=== PATIENT | female | born 1975 | race Caucasian/White ===

== ENCOUNTER → 2020-04-25 | Outpatient (CLI) | payer MEDICARE, OTHER ==
--- NOTE | 2020-04-25 10:35 | P.GSHP ---
History of Present Illness H&P Date: 04/25/20 (breast pain) Chief Complaint: breast pain Indigo is a 44 year old white female seen for Dr. Muller with a complaint of a mass in the left lateral breast, and bilateral breast pain. The patient has been present for approximately 6-7 months. This present in both breasts. This is greatest in the midportion of the breast, the right side the pain is in the inferior aspect of the breast and on the left side the pain is greatest laterally. She did have a cholecystectomy in the pain started after the cholecystectomy and she had a left breast biopsy near the site where the pain is greatest. She has no complaints of any nipple discharge. The pain is sharp and goes through the nipple on each side. It occur several times a week. She is uncertain of anything that would make it come. She has had bilateral nipple piercing several months ago. She has had no history of any infection or, and the breast. She did have a core biopsy of the left breast palpable lesion which she states was benign, this was done 7-10 years ago. She states that it has increased in size since that time. The patient notes over the nodularity in the lateral aspect of the left breast, she does not feel any other lumps masses or nodules in her breast of which she is concerned. She had a recent bilateral mammogram Of importance is the fact that the patient has 3 kidneys, and following a cholecystectomy was noted have an accessory bile duct which caused biliary leakage. Caffeine: One cup of tea or coffee every 2 weeks Nicotine: Negative patient, mother a heavy smoker Theophylline: 2 candy bars/ per day Hormones: Patient does not take any at this time Family: father: throat cancer brother: throat cancer maternal aunt: breast cancer maternal aunt: uterine cancer maternal uncle: breast cancer paternal uncle: colo-rectal cancer paternal aunt: colo-rectal cancer Hormonal History: menarche: 11 , 1 , breast fed: no, age at first :21 full hysterectomy at 34, done for endometriosis BCP: 10 years hormones: 10 years. Estrogen and testosterone, she stopped this 3 years ago Surgical history: 1. Total abdominal hysterectomy for endometriosis 2. Cholecystectomy 3. Sepsis following cholecystectomy related to an accessory bile duct which caused bile to leak intra-abdominally/ mesh placed ; initial surgery was at [facility] the patient's subsequent surgery was at [facility] 4. Three repairs intra-abdominally to lyse scar tissue 5. Multiple laparoscopic evaluations for abdominal pain prior to hysterectomy 6. 2 C-sections Medical history: 1. Patient has 3 kidneys 2 on the right and one on the left/patient has history of kidney stones 2. fibromyalgia 3. Irritable bowel syndrome 4. Bipolar disorder 5. Personality disorder 6. Anxiety 7. Severe posttraumatic stress disorder Social history: Smoke: Negative Alcohol: Negative Drugs: Marijuana daily - Constitutional Constitutional: Reports sweats - EENT Eyes: bilateral blurred vision, denies pain Ears: bilateral: tinnitus (Mnire's disease), deny: decreased hearing Ears, nose, mouth and throat: Reports headache - Breasts Breasts: bilateral: as per HPI - Cardiovascular Cardiovascular: Denies chest pain, Denies shortness of breath - Respiratory Respiratory: Denies cough, Denies 7 - Gastrointestinal Gastrointestinal: Denies abdominal pain, Denies diarrhea, Denies nausea, Denies vomiting - Genitourinary (Female) Comment: kidney stones Genitourinary: Denies dysuria, Denies hematuria - Menstruation Menstruation: Reports post hysterectomy - Musculoskeletal Comment: Fibromyalgia - Integumentary Integumentary: Denies pruritus, Denies rash - Neurological Neurological: Reports numbness, Reports weakness - Psychiatric Psychiatric: Reports as per HPI, Reports anxiety, Reports depression - Endocrine Endocrine: Reports weight change - Hematologic/Lymphatic Comment: none - Allergic/Immunologic Allergic/Immunologic: Reports seasonal allergies 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"; History of Any Multi-Drug Resistant Organisms: C-DIFF Date of last positivie culture/infection: 2003 MDRO Source:: bowel Past Surgical History: Section, Cholecystectomy, Hysterectomy Additional Past Surgical History / Comment(s): hysterectomy, oophorectomy and salpingectomy; patient states she "coded and " from cholecystectomy complications during surgery; section x2; Past Anesthesia/Blood Transfusion Reactions: No Reported Reaction Past Psychological History: Anxiety, Bipolar, Depression, Panic Disorder, PTSD Additional Psychological History / Comment(s): personality disorder; Smoking Status: Never smoker Past Alcohol Use History: None Reported Past Drug Use History: Marijuana Additional Drug Use History / Comment(s): Marijuana multiple times a day - Past Family History Father Family Medical History: Cancer, Coronary Artery Disease (CAD) Additional Family Medical History / Comment(s): neck cancer; Mother Family Medical History: Hypertension Additional Family Medical History / Comment(s): mental illness Brother(s) Family Medical History: Cancer Additional Family Medical History / Comment(s): neck cancer Medications and Allergies Home Medications Medication Instructions Recorded Confirmed Type Baclofen [Lioresal] 50 mg PO HS 04/25/20 04/25/20 History Diazepam [Valium] 10 mg PO TID PRN 04/25/20 04/25/20 History Lisinopril [Zestril] 10 mg PO QAM 04/25/20 04/25/20 History OXcarbazepine [Trileptal] 900 mg PO BID 04/25/20 04/25/20 History PARoxetine [Paxil] 20 mg PO HS 04/25/20 04/25/20 History Pantoprazole Sodium [Protonix] 40 mg PO BID 04/25/20 04/25/20 History Pregabalin [Lyrica] 150 mg PO HS 04/25/20 04/25/20 History Allergies Allergy/AdvReac Type Severity Reaction Status Date / Time latex Allergy Anaphylaxis Unverified 04/25/20 09:27 Surgical - Exam Vital Signs Temp Pulse Resp BP Pulse Ox 98.4 F 82 18 131/90 97 04/25/20 09:33 04/25/20 09:33 04/25/20 09:33 04/25/20 09:33 04/25/20 09:33 BMI 32.6 - General obese - Eyes normal ocular movement - ENT no hearing loss, no congestion - Neck no masses, trachea midline - Respiratory normal respiratory effort, clear to auscultation - Cardiovascular Rhythm: regular Heart Sounds: normal: S1, S2 - Abdomen Abdomen: soft, non tender, no guarding, no rigid, no rebound - Integumentary tattoo - Neurologic no disoriented, no combative - Musculoskeletal normal gait, normal posture - Psychiatric oriented to time, oriented to person, oriented to place, speech is normal, memory intact Breast Exam: BRA 38E Inspection: ptosis grade 3 bilateral. right larger than left, bilateral nipple rings Palpation: right breast: Multi-positional exam no dominant masses or nodules of concern, nippling in place Right axilla: No adenopathy of concern Left breast: Smaller than right breast, nipple ring in place, on examination in the upper outer quadrant is approximately a 1 cm area of nodularity which appears to be consistent with fibrocystic breast disease/lipoma Left axilla: No adenopathy of concern Results Bilateral mammogram reviewed with radiology, area of nodularity noted in the left breast for which ultrasound is recommended Assessment and Plan Assessment: Impression: 1. Patient has 3 kidneys 2 on the right and one on the left/patient has history of kidney stones 2. fibromyalgia 3. Irritable bowel syndrome 4. Bipolar disorder 5. Personality disorder 6. Anxiety 7. Severe posttraumatic stress disorder 8. Mammographic abnormality left breast 9. Fibrocystic breast disease bilaterally 10. Family history of cancer 11. Mastodynia 12. Macromastia Plan: 1. Ultrasound left breast 2. Probable ultrasound-guided core biopsy left breast 3. Follow-up after this 4. Referral to plastic surgeon if patient wishes reduction mastopexy 5. Mastodynia may be related to hormonal changes/theophylline 6. Patient given Book regarding breast pain CC: DR. Muller encounter 50 minutes, > 50% of time in planning and counselling
[2020-04-25 10:45] VITALS: BP 131/90; PULSE 82; RESP 18; TEMP 98.4
== END | disposition home or self-care (01) ==
LOC: WWCWWP 09:14
PROVIDERS: ATTEND Surgery
DX: Z53.9 Procedure and treatment not carried out, unspecified reason (principal)

== ENCOUNTER → 2020-06-02 | Day surgery (SDC) | payer MEDICARE, OTHER ==
[2020-06-02 12:41] VITALS: PULSE 73
[2020-06-02 13:52] VITALS: BP 122/77; RESP 16; TEMP 98.1
--- NOTE | 2020-06-02 19:47 | USB ---
EXAMINATION TYPE: US biopsy breast VAD LT, MG post biopsy diagnostic mammo LT wo CAD DATE OF EXAM: 06/02/2020 CLINICAL HISTORY: 44-year-old female [id number] BREAST LUMP.MASS. TECHNIQUE: Ultrasound guided core biopsy of left breast. COMPARISON: 03/12/2020 FINDINGS: The procedure of ultrasound guided core biopsy was explained to the patient. Benefits, alternatives, and risks were discussed. An informed consent was then obtained. The patient was placed in supine positioning for imaging and for the procedure. The overlying skin was prepped and draped in usual sterile fashion. Lidocaine was used as anesthetic into the skin and subcutaneous tissue up to area of concern in the 1:00 left breast. The circumscribed oval solid mass with posterior through transmission measuring approximately 1.8 cm was targeted for biopsy. Under ultrasound guidance, a 13-gauge vacuum-assisted mammotome Elite biopsy gun device was used to obtain 4 core samples. Following this, a wing clip was left in lesion. The patient tolerated the procedure well without any immediate complication. The patient was kept in the radiology department for short stay after the procedure and then discharged home in stable condition. Postprocedure mammogram shows clip embedded within the mammographic mass. IMPRESSION: Successful, uncomplicated ultrasound guided core biopsy of 1:00 solid left breast mass, possible fibroadenoma. Full pathology results to follow. Pathology Results: Benign LEFT BREAST LESION AT 1:00 POSITION, NEEDLE CORE BIOPSIES: Fibroadenoma. Recommendation Follow up mammogram of the left breast in 6 months. GALI
== END ==
LOC: RADUSWWP 11:49
PROVIDERS: ATTEND Surgery
DX: D24.2 Benign neoplasm of left breast (principal); R92.8 Other abnormal and inconclusive findings on diagnostic imaging of breast
CPT/HCPCS: 88305; 77065; 19083; A4648; J2001

== ENCOUNTER → 2020-06-06 | Outpatient (CLI) | payer MEDICARE, OTHER ==
[2020-06-06 13:28] VITALS: BP 103/72; PULSE 84; RESP 18; TEMP 98.5
--- NOTE | 2020-06-06 13:35 | P.PN ---
Subjective Progress Note Date: 06/06/20 Principal diagnosis: Fibroadenoma left breast Indigo is a 44-year-old white female who is status post ultrasound-guided core biopsy of a lesion of concern in the left breast at the 1 o'clock position. This is 1.9 cm in nature. It corresponds with radiographic changes that were seen. The core biopsy was positive for fibroadenoma. This has been discussed with the patient. At this time she wishes to have a followed conservatively. She understands and will most likely not go away on its own. Objective - Vital Signs Vital signs: Vital Signs Temp 98.5 F 06/06/20 13:25 Pulse 84 06/06/20 13:25 Resp 18 06/06/20 13:25 BP 103/72 06/06/20 13:25 Pulse Ox 98 06/06/20 13:25 Intake & Output 06/05/20 06/06/20 06/06/20 18:59 06:59 18:59 Weight 84.822 kg - Exam BMI 32.1 - Constitutional General appearance: Present: average body habitus - EENT Eyes: Present: EOMI ENT: Present: hearing grossly normal - Neck Neck: Present: normal ROM - Respiratory Respiratory: bilateral: CTA - Cardiovascular Rhythm: regular Heart sounds: normal: S1, S2 - Integumentary Integumentary Comment(s): Biopsy Site left breast is clean and dry no evidence of infection Integumentary: Present: normal turgor - Musculoskeletal Musculoskeletal: Present: gait normal - Psychiatric Psychiatric: Present: A&O x's 3, appropriate affect, intact judgment & insight Assessment and Plan Assessment: Impression: 1. Fibrocystic breast changes 2. Radiographic abnormality left breast consistent with fibroadenoma 3. Probable change left breast noted on prior exam consistent with fibroadenoma on biopsy Plan: 1. Patient wishes to have surveillance will have repeat ultrasound in 6 months with physician exam at that time 2. If this increases in size prior that would recommend being seen sooner Cc: Dr. Muller encounter 15 minutes, > 50% of time in planning and counselling
== END | disposition home or self-care (01) ==
LOC: WWCWWP 12:55
PROVIDERS: ATTEND Surgery
DX: Z53.9 Procedure and treatment not carried out, unspecified reason (principal)

== ENCOUNTER → 2020-12-08 | Outpatient (CLI) | payer MEDICARE, OTHER ==
--- NOTE | 2020-12-08 12:28 | USB ---
Reason for exam: follow-up at short interval from prior study. History: Family history of breast cancer in maternal uncle at age 50, breast cancer in 2 maternal aunts, and breast cancer in paternal grandmother. Benign US biopsy breast VAD LT of the left breast, June 02, 2020. Physical Findings: Nurse did not find any significant physical abnormalities on exam. US Breast Limited LT Left limited breast ultrasound including focal area of concern, retroareolar and axilla demonstrates a 1.6 x 1.6 x 0.8cm oval, solid, hypoechoic, vascular lesion at 2 o'clock prior biopsy site and a 1.5 x 1.2 x 0.9cm lymph node at the axilla. These results were verbally communicated with the patient and result sheet given to the patient on 12/08/20. ASSESSMENT: Benign, BI-RAD 2 RECOMMENDATION: Follow-up diagnostic mammogram of the left breast.
--- NOTE | 2020-12-08 12:29 | MM ---
Reason for exam: follow-up at short interval from prior study. Last mammogram was performed 6 months ago. History: Family history of breast cancer in maternal uncle at age 50, breast cancer in 2 maternal aunts, and breast cancer in paternal grandmother. Benign US biopsy breast VAD LT of the left breast, June 02, 2020. MG 3D Diag Mammo W/Cad LT CC and MLO view(s) were taken of the left breast. Prior study comparison: June 02, 2020, left breast MG diagnostic mammo LT wo CAD. Previous mammotome biopsy in the left breast. There is chronic nodularity in the left breast. No significant new findings when compared with previous films. These results were verbally communicated with the patient and result sheet given to the patient on 12/08/20. ASSESSMENT: Benign, BI-RAD 2 RECOMMENDATION: Routine screening mammogram of both breasts in 6 months. Back on schedule for May 2021.
--- NOTE | 2020-12-08 16:04 | BD ---
EXAMINATION TYPE: Axial Bone Density DATE OF EXAM: 12/08/2020 COMPARISON: NONE CLINICAL HISTORY: Height: 62.7 IN Weight: 175 LBS FRAX RISK QUESTIONS: Secondary Osteoporosis: 3. Menopause before 45: TOTAL HYST AGE 35 Rheumatoid Arthritis: YES Current Tobacco Use: MARIJUANA RISK FACTORS HISTORY OF: History of Wrist Fracture: RT WRIST FX AGE 37 Active: MODERATE Postmenopausal woman: TOTAL HYST AGE 35 Take estrogen and/or progesterone medications: NOT NOW How long: TOOK FOR 8 YEARS Frequent falls: YES MINEAR MEDICATIONS: Additional Medications: VIT D, BACLOFEN, PAXIL, PROTONIX, TRILEPTAL, LISINOPRIL, LYRICA, EXAM MEASUREMENTS: Bone mineral densitometry was performed using the [employer] System. Bone mineral density as measured about the Lumbar spine is: ----- L1-L4(G/cm2): 0.775 T Score Values are as follows: ----- L2: -3.2 ----- L3: -2.7 ----- L4: -4.0 ----- L1-L4: -3.4 Bone mineral density BASELINE Bone mineral density about the R hip (g/cm2): 0.816 Bone mineral density about the L hip (g/cm2): 0.864 T Score values are as follows: -----R Neck: -1.6 -----L Neck: -1.2 -----R Total: -0.8 -----L Total: -0.6 Bone mineral density BASELINE IMPRESSION: Osteoporosis (T Score less than -2.5). There is increased fracture risk and therapy is usually indicated based on age. Re-Screen 1-2 years. NOTE: T-SCORE=SD OF THE YOUNG ADULT MEAN.
== END ==
LOC: RADUSWWP 09:15
PROVIDERS: ATTEND Surgery
DX: Z13.820 Encounter for screening for osteoporosis (principal); M81.0 Age-related osteoporosis without current pathological fracture; R92.8 Other abnormal and inconclusive findings on diagnostic imaging of breast
CPT/HCPCS: 77080; 77065; 76642; G0279; 77061

== ENCOUNTER → 2021-02-20 | Outpatient (CLI) | payer MEDICARE, OTHER ==
[2021-02-20 12:59] VITALS: BP 130/91; PULSE 74; RESP 14; TEMP 97.8
--- NOTE | 2021-02-20 14:13 | P.PN ---
Subjective Progress Note Date: 02/20/21 Principal diagnosis: mass left breast Indigo is a 45 year old white female seen for Dr. Muller seen initially in 2019 with a complaint of a mass in the left lateral breast, and bilateral breast pain. She underwent a left breast needle core biopsy at the 1 [place] [id number] which was positive for fibroadenoma. Her most recent radiographic studies were in November 2020. At that time she had a left breast mammogram which revealed chronic nodularity and a left breast ultrasound which revealed a 1.6 x 0.8 cm solid vascular lesion at 2:00 prior biopsy site and 1.5-1.2 cm lymph node in the axilla. Her last right breast mammogram was 03-12-20, which did not show any lesions of concern in the right breast. The patient over the last week noted a fullness in her left breast at the 6:00 periareolar region. She states it is tender to touch. And she was placed on antibiotics from her primary care doctor/Bactrim which she is not tolerating. She is having nausea and vomiting with this. She is complaining of chills but no fever. The spot in her breast has decreased in size. She did have a nipple ring on that side which she took months ago. She states that the nipple on that side intermittently becomes inverted. She has never had any breast surgery. She is not complaining of any nipple discharge or skin changes. She is not complaining the lumps or masses in the right breast. Of importance is the fact that the patient has 3 kidneys, and following a cholecystectomy was noted have an accessory bile duct which caused biliary leakage. Patient had Abraham COVID vaccine on 01-21-21. It was in her left arm. The breast lesion started 2 weeks later. Caffeine: One cup of tea or coffee every 2 weeks Nicotine: Negative patient, mother a heavy smoker not around her Theophylline: 2 candy bars/ per day; stopped this Hormones: Patient does not take any at this time Family: father: throat cancer brother: throat cancer maternal aunt: breast cancer maternal aunt: uterine cancer maternal uncle: breast cancer paternal uncle: colo-rectal cancer paternal aunt: colo-rectal cancer Hormonal History: menarche: 11 , 1 , breast fed: no, age at first :21 full hysterectomy at 34, done for endometriosis BCP: 10 years hormones: 10 years. Estrogen and testosterone, she stopped this 3 years ago Surgical history: 1. Total abdominal hysterectomy for endometriosis 2. Cholecystectomy 3. Sepsis following cholecystectomy related to an accessory bile duct which caused bile to leak intra-abdominally/ mesh placed ; initial surgery was at [facility] the patient's subsequent surgery was at [facility] 4. Three repairs intra-abdominally to lyse scar tissue 5. Multiple laparoscopic evaluations for abdominal pain prior to hysterectomy 6. 2 C-sections Medical history: 1. Patient has 3 kidneys 2 on the right and one on the left/patient has history of kidney stones 2. fibromyalgia 3. Irritable bowel syndrome 4. Bipolar disorder 5. Personality disorder 6. Anxiety 7. Severe posttraumatic stress disorder Social history: Smoke: Negative Alcohol: Negative Drugs: Marijuana daily - Constitutional Constitutional: Reports sweats - EENT Eyes: bilateral blurred vision, denies pain Ears: bilateral: tinnitus (Mnire's disease), deny: decreased hearing Ears, nose, mouth and throat: Reports headache - Breasts Breasts: bilateral: as per HPI - Cardiovascular Cardiovascular: Denies chest pain, Denies shortness of breath - Respiratory Respiratory: Denies cough - Gastrointestinal Gastrointestinal: Denies abdominal pain, Denies diarrhea, Denies nausea, Denies vomiting - Genitourinary (Female) Comment: kidney stones Genitourinary: Denies dysuria, Denies hematuria - Menstruation Menstruation: Reports post hysterectomy - Musculoskeletal Comment: Fibromyalgia - Integumentary Integumentary: Denies pruritus, Denies rash - Neurological Neurological: Reports numbness, Reports weakness - Psychiatric Psychiatric: Reports as per HPI, Reports anxiety, Reports depression - Endocrine Endocrine: Reports weight change - Hematologic/Lymphatic Comment: none - Allergic/Immunologic Allergic/Immunologic: Reports seasonal allergies Objective - Vital Signs Vital signs: Vital Signs Temp 97.8 F 02/20/21 12:50 Pulse 74 02/20/21 12:50 Resp 14 02/20/21 12:50 BP 130/91 02/20/21 12:50 Pulse Ox 98 02/20/21 12:50 Intake & Output 02/19/21 02/20/21 02/20/21 18:59 06:59 18:59 Weight 84.822 kg - Exam BMI 34.2 - Constitutional General appearance: Present: average body habitus - EENT Eyes: Present: EOMI ENT: Present: hearing grossly normal - Neck Neck: Present: normal ROM - Respiratory Respiratory: bilateral: CTA - Cardiovascular Rhythm: regular Heart sounds: normal: S1, S2 - Integumentary Integumentary: Present: normal turgor - Musculoskeletal Musculoskeletal: Present: gait normal - Psychiatric Psychiatric: Present: A&O x's 3, appropriate affect, intact judgment & insight - Additional findings Additional findings: breast exam: BRA: 36DDD inspection: Bilateral grade 3 ptosis Palpation: Right breast: Multi-positional exam fibrocystic changes no dominant masses or nodules of concern Right axilla: No adenopathy of concern Left breast: Multi-positional exam nodule periareolar area approximately 1-1/2 cm in size questionably consistent with an abscess/cyst left axilla: No adenopathy of concern Assessment and Plan Assessment: Impression: 1. Nodule left breast periareolar region cyst versus abscess attempted aspiration/question fibroadenoma 2. Recommend ultrasound area of concern left breast 3. Change antibiotics as patient is not tolerating Bactrim 4. Patient has 3 kidneys 2 on the right and one on the left/patient has history of kidney stones 5. fibromyalgia 6. Irritable bowel syndrome 7. Bipolar disorder 8. Personality disorder 9. Anxiety 10. Severe posttraumatic stress disorder 11. No fever 12. Question partially treated abscess with Bactrim Plan: 1. Attempted aspiration lesion left breast; no fluid obtained 2. Ultrasound left breast 3. Change antibiotics to Keflex as patient is not tolerating Bactrim 4. Follow up next week 5. Patient is going to follow up sooner any questions or concerns Cc: Dr. Muller Attempted aspiration lesion left breast the area was prepped using alcohol percent lidocaine was used to anesthetize the area of concern and 18-gauge needle on a 20 mL syringe was inserted into the area of nodularity no cystic fluid or of the purulence was aspirated. There is question that this may be a solid lesion same as the fibroadenoma that she had diagnosed before. We will get an ultrasound.
== END ==
LOC: WWCWWP 01-09 11:05
PROVIDERS: ATTEND Surgery
DX: N63.20 Unspecified lump in the left breast, unspecified quadrant (principal); F31.9 Bipolar disorder, unspecified; K58.9 Irritable bowel syndrome, unspecified; M79.7 Fibromyalgia; F60.9 Personality disorder, unspecified; F43.10 Post-traumatic stress disorder, unspecified; F41.9 Anxiety disorder, unspecified; Z87.442 Personal history of urinary calculi

== ENCOUNTER → 2021-02-27 | Outpatient (CLI) | payer MEDICARE, OTHER ==
[2021-02-27 08:58] VITALS: BP 140/101; PULSE 84; RESP 18; TEMP 97.7
--- NOTE | 2021-02-27 09:15 | USB ---
Reason for exam: clinical finding. History: Family history of breast cancer in maternal uncle at age 50, breast cancer in 2 maternal aunts, and breast cancer in paternal grandmother. Benign US biopsy breast VAD LT of the left breast, June 02, 2020. Indicated problem(s): pain in the left breast. Physical Findings: Nurse Summary: Patient complains of left beast pain x 1 month, 1cm lump left breast at 9 o'clock, bruising medial to nipple at lump (nurse mj). US Breast LT Left complete breast ultrasound includes all four quadrants, the retroareolar region and axilla. Finding demonstrates a 1.8 x 0.7 x 1.8cm mixed lesion at 2 o'clock and a 1.1 x 0.8 x 1.1cm at 8 o'clock, area of bruising. These results were verbally communicated with the patient and result sheet given to the patient on 02/27/21. ASSESSMENT: Probably benign, BI-RAD 3 RECOMMENDATION: Ultrasound of the left breast in 1 month. Manage patient on a clinical basis.
--- NOTE | 2021-02-27 09:16 | P.PN ---
Subjective Progress Note Date: 02/27/21 Principal diagnosis: Mass left breast periareolar area approximately 11:30 Indigo is a 45-year-old white female seen initially in 2019 with a complaint of a mass in the left lateral breast and bilateral breast pain. She underwent a left breast core biopsy on which was positive for fibroadenoma. Her most recent radiographic studies have been in November 2020. At that time she had a left breast mammogram which revealed chronic nodularity in the left breast ultrasound which revealed a 1.6 x 0.8 cm solid vascular lesion at 2:00 prior biopsy site and a 1.5 cm lymph node in the axilla. Her last right breast mammogram had been in February 2020 which did not show any lesions of concern in the right breast. The patient was seen on 5720 with a complaint of fullness in her left breast at the 6:00 periareolar region. She stated it was tender to touch. She had been placed on antibiotics for a primary care doctor Bactrim which she did not tolerate well when she was seen in the office there was noted to be a nodule in the left breast in the periareolar region and there was concern that this may represent an abscess. Antibiotic was changed to Keflex which she has been taking without resolution of the lesion. Additionally an attempt at aspiration was performed which was unsuccessful. She has had some ecchymosis of the site and continues to have tenderness at this site. An ultrasound was performed of this area today which reveals probable hematoma not opal to drain. The patient is doing well at this time, but continues to have discomfort at the site. She does not complain of any fever or chills. Objective - Vital Signs Vital signs: Vital Signs Temp 97.7 F 02/27/21 08:56 Pulse 84 02/27/21 08:56 Resp 18 02/27/21 08:56 BP 140/101 02/27/21 08:56 Pulse Ox 100 02/27/21 08:56 Intake & Output 02/26/21 02/27/21 02/27/21 18:59 06:59 18:59 Weight 83.915 kg - Exam BMI 32.8 - Constitutional General appearance: Present: average body habitus - EENT Eyes: Present: EOMI ENT: Present: hearing grossly normal - Neck Neck: Present: normal ROM - Respiratory Details: slight wheezes left lung base - Cardiovascular Heart sounds: normal: S1, S2 - Integumentary Integumentary Comment(s): Left breast periareolar region approximately 1 1/2 cm in size, mild ecchymosis at this site No evidence of any infection Assessment and Plan Assessment: Impression: 1. Nodule left breast periareolar region does not appear to be an abscess at this time attempted aspiration in unsuccessful ultrasound questionable hematoma from attempt at aspiration nothing to drain 2. Patient has 3 kidneys 2 on the right and one on the left, patient has history of kidney stones 3. Fibromyalgia 4. Irritable bowel syndrome 5. Bipolar disorder 6. Personality disorder 7. Anxiety 8. Posttraumatic stress disorder 9. No fever Plan: 1. Repeat ultrasound as per radiology in 1 month 2. Core biopsy of palpable lesion after ultrasound repeat 3. Follow-up in 2 weeks just to follow this area she has continued questions or concerns sooner we will be happy to see her sooner 4. Most likely resection of this area and the operating room after core biopsy Cc: Dr. Urias Encounter 25 minutes, time spent in examination, review of reports, counselling.
== END | disposition home or self-care (01) ==
LOC: RADUSWWP 07:52
PROVIDERS: ATTEND Surgery
DX: N63.25 Unspecified lump in the left breast, overlapping quadrants (principal); N63.42 Unspecified lump in left breast, subareolar; M79.7 Fibromyalgia; F31.9 Bipolar disorder, unspecified; N64.4 Mastodynia; Z80.3 Family history of malignant neoplasm of breast

== ENCOUNTER → 2021-03-19 | Outpatient (CLI) | payer MEDICARE, OTHER ==
[2021-03-19 11:46] VITALS: BP 131/88; PULSE 70; RESP 18; TEMP 98
--- NOTE | 2021-03-19 12:39 | P.PN ---
Subjective Progress Note Date: 03/19/21 Principal diagnosis: mass left breast Mass left breast periareolar area approximately 11:30 Indigo is a 45-year-old white female seen initially in 2019 with a complaint of a mass in the left lateral breast and bilateral breast pain. She underwent a left breast core biopsy on which was positive for fibroadenoma. Her most recent radiographic studies have been in November 2020. At that time she had a left breast mammogram which revealed chronic nodularity in the left breast ultrasound which revealed a 1.6 x 0.8 cm solid vascular lesion at 2:00 prior biopsy site and a 1.5 cm lymph node in the axilla. Her last right breast mammogram had been in February 2020 which did not show any lesions of concern in the right breast. The patient was seen on 5720 with a complaint of fullness in her left breast at the 6:00 periareolar region. She stated it was tender to touch. She had been placed on antibiotics for a primary care doctor Bactrim which she did not tolerate well when she was seen in the office there was noted to be a nodule in the left breast in the periareolar region and there was concern that this may represent an abscess. Antibiotic was changed to Keflex which she has been taking without resolution of the lesion. Additionally an attempt at aspiration was performed which was unsuccessful. She has had some ecchymosis of the site and continues to have tenderness at this site. An ultrasound was performed of on 02/1421 which revealed a 1.8 x 1.8 cm mixed lesion at 2:00. This was felt to be probably benign BIRADS 3 and ultrasound of the left breast in 1 month was recommended. The patient however had persistent discomfort and a repeat ultrasound of the left breast was performed on at [facility]. This revealed a 7 x 6 x 7 mm heterogeneous microlobulated lesion at the site of the lump in the subareolar region and enlarged 1.7 cm lymph node which had loss of the normal fatty hilum. The recommendation from [facility] from was for the patient to undergo ultrasound-guided core biopsy of the subareolar lesion and the abnormal left axillary lymph node. She had COVID vaccination on the left arm on February 11, 2021. Surgical history: 1. Total abdominal hysterectomy for endometriosis 2. Cholecystectomy 3. Sepsis following cholecystectomy related to an accessory bile duct 4. 3 exploratory laparotomies to lyse scar tissue 5. Multiple laparoscopic evaluations for abdominal pain prior to hysterectomy 6. 2 C-sections Medical history: 1. Patient has 3 kidneys 2 on the right and one on the left patient is history of kidney stones 2. Fibromyalgia 3. Irritable bowel syndrome 4. Polyp bipolar disorder 5. Personality disorder 6. Anxiety 7. Severe posttraumatic stress disorder Social history: Smoke: Negative Alcohol: Negative Drugs: Marijuana daily Objective - Vital Signs Vital signs: Vital Signs Temp 98.0 F 03/19/21 11:43 Pulse 70 03/19/21 11:43 Resp 18 03/19/21 11:43 BP 131/88 03/19/21 11:43 Pulse Ox 99 03/19/21 11:43 Intake & Output 03/18/21 03/19/21 03/19/21 18:59 06:59 18:59 Weight 86.183 kg - Exam BMI 33.7 - Constitutional General appearance: Present: average body habitus - EENT Eyes: Present: EOMI - Neck Neck: Present: normal ROM - Respiratory Respiratory: bilateral: CTA - Cardiovascular Heart sounds: normal: S1, S2 - Integumentary Integumentary: Present: normal turgor - Psychiatric Psychiatric: Present: A&O x's 3, appropriate affect, intact judgment & insight - Additional findings Additional findings: Brest exam: BRA: 36DDD inspection: grade 3 ptosis bilateral Palpation: Right breast: Multi-positional exam fibrocystic changes, no dominant masses or nodules of concern Right axilla: No adenopathy of concern Left breast: Multi-positional exam increased nodularity approximately 7 to 8 o'clock position. Areolar region otherwise no dominant masses or nodules of concern this area is tender to palpation Left axilla: No adenopathy of concern Assessment and Plan Assessment: Impression: 1. Patient's mammogram and ultrasounds were reviewed with Dr. Fabriz[facility] she states that she can do ultrasound core biopsy of the lesion in the left breast as well as that under her arm 2. Fibrocystic breast changes 3. Patient has 3 kidneys 2 on the right and one on the left patient is history of kidney stones 4. Fibromyalgia 5. Irritable bowel syndrome 6. Polyp bipolar disorder 7. Personality disorder 8. Anxiety 9. Severe posttraumatic stress disorder 10. 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 Patient is due for a right breast mammogram at this time 2. After review of patient's ultrasound with Dr. Dinh is recommended that a left breast ultrasound core biopsy be performed as well as potential left breast axillary biopsy be performed 3. Patient to follow up after results of biopsy Cc: Dr. Muller encounter 20 minutes
== END ==
LOC: WWCWWP 11:33
PROVIDERS: ATTEND Surgery
DX: N60.11 Diffuse cystic mastopathy of right breast (principal); D24.2 Benign neoplasm of left breast; F31.9 Bipolar disorder, unspecified; F43.10 Post-traumatic stress disorder, unspecified; M79.7 Fibromyalgia; Z87.442 Personal history of urinary calculi; F60.9 Personality disorder, unspecified; K58.9 Irritable bowel syndrome, unspecified; Z91.040 Latex allergy status

== ENCOUNTER → 2021-03-24 | Day surgery (SDC) | payer MEDICARE, OTHER ==
[2021-03-24 10:24] VITALS: RESP 16; TEMP 98.2
--- NOTE | 2021-03-24 11:54 | USB ---
EXAMINATION TYPE: US biopsy breast VAD LT DATE OF EXAM: 03/24/2021 CLINICAL HISTORY: R92.8 ABN MAMMO, N63 BREAST LUMP,MASS. TECHNIQUE: Ultrasound guided vaccuum assisted core biopsy of left breast. COMPARISON: NONE FINDINGS: The ultrasound guided core biopsy procedure was explained to the patient. The risks, benef its, alternatives were discussed. An informed consent was then obtained. Timeout was performed. The patient was placed in supine positioning for imaging and for the procedure. The overlying skin w as prepped with betadine and sterilely draped in usual sterile fashion. Lidocaine 1% was used as ane sthetic into the skin and deeper breast tissue up to area of concern in the breast. A small skin monae k was made with surgical scalpel. Under ultrasound guidance, a 12-gauge vacuum assisted biopsy device was used to obtain 5 core samples . A biopsy clip was left in lesion. Ribbon clip was placed. Good hemostasis was obtained with direct pressure. There was a suggestion small hematoma was forming after the final sample. Discharge instructions were discussed with the patient. The patient will fol low up with the referring physician for results. Postprocedure mammogram: The patient was transferred to mammography for physician ordered post proced ure mammogram for clip placement verification. The clip is in the expected region of the biopsy. Sma ll hematoma may be present. The patient tolerated the procedure well without any immediate complication. The patient was dischar ged to home in stable condition. IMPRESSION: 1. Successful ultrasound guided biopsy left breast. Recommendations: 1. Recommendations are pending pathology results.
[2021-03-24 12:12] VITALS: BP 138/86; PULSE 80
--- NOTE | 2021-03-24 12:18 | MM ---
Reason for exam: additional evaluation requested from abnormal screening. Last mammogram was performed 3 months ago. History: Family history of breast cancer in maternal uncle at age 50, breast cancer in 2 maternal aunts, and breast cancer in paternal grandmother. Benign US biopsy breast VAD LT of the left breast, June 02, 2020. MG Diagnostic Mammo LT Wo CAD CC and ML view(s) were taken of the left breast. Prior study comparison: December 08, 2020, left breast MG 3d diag mammo w/cad LT. June 02, 2020, left breast MG diagnostic mammo LT wo CAD. ASSESSMENT: Post procedure mammogram for marker placement RECOMMENDATION: Ultrasound of the left breast in 6 months. PENDING PATHOLOGY RESULTS.
== END ==
LOC: RADUSWWP 09:22
PROVIDERS: ATTEND Surgery
DX: N64.1 Fat necrosis of breast (principal); L90.5 Scar conditions and fibrosis of skin; R92.8 Other abnormal and inconclusive findings on diagnostic imaging of breast; N63.20 Unspecified lump in the left breast, unspecified quadrant; Z91.040 Latex allergy status
CPT/HCPCS: 88305; 77065; 19083; A4648; J2001

== ENCOUNTER 2021-05-22 16:44 | Emergency (ER) | payer MEDICARE, OTHER ==
[2021-05-22 17:11] VITALS: BP 142/99; PULSE 113; RESP 18; TEMP 98.4
--- NOTE | 2021-05-22 18:28 | ED ---
Allergic Reaction HPI - General Chief complaint: Allergic Reaction Stated complaint: Allergic reaction, itchy troat Time Seen by Provider: 05/22/21 18:12 Source: patient Mode of arrival: ambulatory Limitations: no limitations - History of Present Illness Initial Comments: 45-year-old female presents to emergency prompt with a chief complaint of a bee sting. Patient reports that incident occurred yesterday and it is located on the middle finger of right hand. Patient reports is also separate bee sting on the right leg. Patient reports typically oral steroids do not work well for her. States she took Benadryl but it is not working for her as well. Patient is requesting IM or IV steroids. She denies and difficulty breathing swallowing or drooling. - Related Data Home Medications Medication Instructions Recorded Confirmed Baclofen [Lioresal] 50 mg PO HS 04/25/20 03/24/21 Diazepam [Valium] 10 mg PO TID PRN 04/25/20 03/24/21 Lisinopril [Zestril] 10 mg PO QAM 04/25/20 03/24/21 OXcarbazepine [Trileptal] 900 mg PO BID 04/25/20 03/24/21 PARoxetine [Paxil] 20 mg PO HS 04/25/20 03/24/21 Pantoprazole Sodium [Protonix] 40 mg PO BID 04/25/20 03/24/21 Pregabalin [Lyrica] 150 mg PO HS 04/25/20 03/24/21 Cetirizine HCl 10 mg PO DAILY 03/19/21 03/24/21 Cholecalciferol [Vitamin D3 (25 25 mcg PO DAILY 03/19/21 03/24/21 Mcg = 1000 Iu)] Meclizine [Antivert] 25 mg PO TID PRN 03/19/21 03/24/21 ondansetron HCL [Zofran] 8 mg PO Q8HR PRN 03/19/21 03/24/21 Previous Rx's Medication Instructions Recorded Cephalexin [Keflex] 500 mg PO BID #14 cap 05/22/21 Fluconazole [Diflucan] 150 mg PO ONCE #2 tab 05/22/21 Allergies Allergy/AdvReac Type Severity Reaction Status Date / Time latex Allergy Anaphylaxis Verified 05/22/21 17:11 Review of Systems ROS Statement: Those systems with pertinent positive or pertinent negative responses have been documented in the HPI. ROS Other: All systems not noted in ROS Statement are negative. 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"; History of Any Multi-Drug Resistant Organisms: C-DIFF Date of last positivie culture/infection: 2003 MDRO Source:: bowel Past Surgical History: Section, Cholecystectomy, Hysterectomy Additional Past Surgical History / Comment(s): hysterectomy, oophorectomy and salpingectomy; patient states she "coded and " from cholecystectomy complications during surgery; section x2; Past Anesthesia/Blood Transfusion Reactions: No Reported Reaction Past Psychological History: Anxiety, Bipolar, Depression, Panic Disorder, PTSD Smoking Status: Never smoker, Second hand smoke exposure Past Alcohol Use History: None Reported Past Drug Use History: Marijuana - Past Family History Father Family Medical History: Cancer, Coronary Artery Disease (CAD) Additional Family Medical History / Comment(s): neck cancer; Mother Family Medical History: Hypertension Additional Family Medical History / Comment(s): mental illness Brother(s) Family Medical History: Cancer Additional Family Medical History / Comment(s): neck cancer General Exam Limitations: no limitations General appearance: alert, in no apparent distress Head exam: Present: atraumatic, normocephalic, normal inspection Eye exam: Present: normal appearance, PERRL, EOMI Pupils: Present: normal accommodation ENT exam: Present: normal exam, normal oropharynx, mucous membranes moist Neck exam: Present: normal inspection, full ROM. Absent: tenderness, lymphadenopathy Respiratory exam: Present: normal lung sounds bilaterally. Absent: respiratory distress, wheezes, rales Cardiovascular Exam: Present: regular rate, normal rhythm, normal heart sounds. Absent: systolic murmur Extremities exam: Present: full ROM, tenderness (Mild tenderness of the bee sting site), normal capillary refill. Absent: normal inspection (Bee sting on the middle finger), pedal edema Back exam: Present: normal inspection, full ROM. Absent: tenderness Neurological exam: Present: alert, oriented X3 Psychiatric exam: Present: normal affect, normal mood Skin exam: Present: warm, dry, intact, normal color Course Vital Signs 05/22/21 17:07 Temperature 98.4 F Pulse Rate 113 H Respiratory 18 Rate Blood Pressure 142/99 O2 Sat by Pulse 98 Oximetry Medical Decision Making - Medical Decision Making Patient was given 1 dose of 10 mg Decadron here. Also given IV Benadryl. I will discharge the patient with Keflex to rule out any infection. Strict return parameters were thoroughly discussed patient is an attending agreeable. Last follow up PCP. Case discussed with physician. Disposition Clinical Impression: Allergic reaction to insect sting Disposition: HOME SELF-CARE Condition: Stable Instructions (If sedation given, give patient instructions): Allergies (ED) Additional Instructions: Take prescribed medication as directed. Return to emergency department if symptoms worsen. Prescriptions: Fluconazole [Diflucan] 150 mg PO ONCE #2 tab Cephalexin [Keflex] 500 mg PO BID #14 cap Is patient prescribed a controlled substance at d/c from ED?: No Referrals: Wilberto Muller MD [Primary Care Provider] - 1-2 days Time of Disposition: 18:27
[2021-05-22] MEDS: DEXAMETHASONE SOD PHOSPHATE 10 MG/ML 1 ML VIAL IV STA (18:31)
[2021-05-22] MEDS: diphenhydrAMINE 50 MG/ML 1 ML VIAL IVP STA (18:39)
== END 2021-05-22 18:51 | disposition home or self-care (01) ==
LOC: EC 16:44
DX: T63.481A Toxic effect of venom of other arthropod, accidental (unintentional), initial encounter (principal); F31.9 Bipolar disorder, unspecified; F41.9 Anxiety disorder, unspecified; F12.90 Cannabis use, unspecified, uncomplicated; Z86.73 Personal history of transient ischemic attack (TIA), and cerebral infarction without residual deficits
CPT/HCPCS: 99282; 96374; 96375; J1200; J1100

== ENCOUNTER → 2021-05-29 | Outpatient (CLI) | payer MEDICARE, OTHER ==
[2021-05-29 13:47] VITALS: BP 116/81; PULSE 89; RESP 16; TEMP 98.2
--- NOTE | 2021-05-29 14:12 | P.PN ---
Subjective Progress Note Date: 05/29/21 Principal diagnosis: bilateral milky discharge mass left breast Mass left breast periareolar area approximately 11:30 Indigo is a 45-year-old white female seen initially in 2019 with a complaint of a mass in the left lateral breast and bilateral breast pain. She underwent a left breast core biopsy on which was positive for fibroadenoma. Her most recent radiographic studies have been in November 2020. At that time she had a left breast mammogram which revealed chronic nodularity in the left breast ultrasound which revealed a 1.6 x 0.8 cm solid vascular lesion at 2:00 prior biopsy site and a 1.5 cm lymph node in the axilla. Her last right breast mammogram had been in February 2020 which did not show any lesions of concern in the right breast. The patient was seen on 5720 with a complaint of fullness in her left breast at the 6:00 periareolar region. She stated it was tender to touch. She had been placed on antibiotics for a primary care doctor Bactrim which she did not tolerate well when she was seen in the office there was noted to be a nodule in the left breast in the periareolar region and there was concern that this may represent an abscess. Antibiotic was changed to Keflex which she has been taking without resolution of the lesion. Additionally an attempt at aspiration was performed which was unsuccessful. She has had some ecchymosis of the site and continues to have tenderness at this site. An ultrasound was performed of on 02/1421 which revealed a 1.8 x 1.8 cm mixed lesion at 2:00. This was felt to be probably benign BIRADS 3 and ultrasound of the left breast in 1 month was recommended. The patient however had persistent discomfort and a repeat ultrasound of the left breast was performed on at [facility]. This revealed a 7 x 6 x 7 mm heterogeneous microlobulated lesion at the site of the lump in the subareolar region and enlarged 1.7 cm lymph node which had loss of the normal fatty hilum. The recommendation from [facility] from was for the patient to undergo ultrasound-guided core biopsy of the subareolar lesion and the abnormal left axillary lymph node. She had COVID vaccination on the left arm on February 11, 2021. Indigo is a 45 year old white female with a complaint of bilateral white milky discharge. This has been going on for two weeks. Prior to this she had bloody discharge from the left side starting in mid March. This started approximately 4 days after a left breast ultrasound core biopsy. The ultrasound core biopsy was done on 03-24-21. The ultrasound core biopsy was positive for fat necrosis/scar with inflammation and granulation tissue. It was negative for malignancy. The patient had before noted a lump behind the left nipple areolar complex has resolved. The patient has bilateral nodularity with no prominent discrete single masses or nodules. At this time the patient is most concerned about his the bilateral milky discharge. She has had a head CT May 15 of her brain to rule out a prolactin tumor and is scheduled for an MRI of the brain later today again to rule out a prolactinoma. She states she had blood work done which she does not know the results of at this time. Her last right breast mammogram was in February 2020, her last left breast mammogram was in November 2020. Caffeine: 2 cups coffee/week nicotine: none chocolate: 1 time/week hormones: did use HRT for 5 years stopped 10 years ago BCP: stopped 1995; used them for 7 years Hormonal History: menarche: 12 M1, breast fed: no, age at first : 22 menopause: hysterectomy at 32 for polycystic ovaries; both ovaries removed Surgical history: 1. Total abdominal hysterectomy for endometriosis 2. Cholecystectomy 3. Sepsis following cholecystectomy related to an accessory bile duct 4. 3 exploratory laparotomies to lyse scar tissue 5. Multiple laparoscopic evaluations for abdominal pain prior to hysterectomy 6. 2 C-sections Medical history: 1. Patient has 3 kidneys 2 on the right and one on the left patient is history of kidney stones 2. Fibromyalgia 3. Irritable bowel syndrome 4. bipolar disorder 5. Personality disorder 6. Anxiety 7. Severe posttraumatic stress disorder 8. GERD 9. HTN Social history: Smoke: Negative Alcohol: Negative Drugs: Marijuana daily Review of systems: HEENT: Sore and nose, sore right upper jaw Lungs: Negative Heart: Negative GI: GERD, IBS : as above kidney stones Musculoskeletal: Osteoporosis, severe arthritis Psychiatric: Bipolar, personality disorder, anxiety Bleeding abnormalities: anemic occasionally allergies: latex, seasonal allergies Objective - Vital Signs Vital signs: Intake & Output 05/28/21 05/29/21 05/29/21 18:59 06:59 18:59 Weight 81.647 kg - Exam BMI 31.9 - Constitutional General appearance: Present: cooperative - EENT Eyes: Present: EOMI ENT: Present: hearing grossly normal - Neck Neck: Present: normal ROM - Respiratory Respiratory: bilateral: CTA - Cardiovascular Rhythm: regular Heart sounds: normal: S1, S2 - Integumentary Integumentary: Present: normal turgor - Musculoskeletal Musculoskeletal: Present: gait normal - Psychiatric Psychiatric: Present: A&O x's 3 - Additional findings Additional findings: Breast exam: BRA: 36DD inspection: bilateral grade 3 ptosis palpation: right breast : Multi-positional exam no dominant masses or nodules of concern fibrocystic changes Right axilla: No adenopathy of concern Left breast: Multi-positional exam the lesion which was posterior to the left nipple areolar complex in the past is completely resolved at this time patient has no dominant mass or patches of concern in this breast Left axilla: No adenopathy of concern Patient was able to elicit a small amount of nipple discharge on the right with squeezing, I was not able to elicit any and this looks serous in nature. On the left breast no nipple discharge was noted myself or the patient Assessment and Plan Assessment: Impression: 1. Intermittent no heat bilateral nipple discharge as per patient none demonstrated today 2. Daily marijuana use which may be causing the milky discharge 3. Patient's fibrocystic changes which were noted on her last visit have completely resolved Plan: 1. bilateral mammogram 2. I have counseled the patient regarding marijuana use in the possible cause of galactorrhea 3. patient is having a breast MRI performed tonight; she had a head CT on 05/15/2021 at [facility] 4. prolatin level 5. follow up after mammogram CC: Dr. Muller
== END ==
LOC: WWCWWP 13:13
PROVIDERS: ATTEND Surgery
DX: N64.52 Nipple discharge (principal); F12.90 Cannabis use, unspecified, uncomplicated; F31.9 Bipolar disorder, unspecified; I10 Essential (primary) hypertension; F41.9 Anxiety disorder, unspecified; F60.9 Personality disorder, unspecified; F43.10 Post-traumatic stress disorder, unspecified

== ENCOUNTER → 2021-06-01 | Outpatient (CLI) | payer MEDICARE, OTHER ==
--- NOTE | 2021-06-01 09:08 | MM ---
Reason for exam: clinical finding. Last mammogram was performed 2 months ago. History: Patient is postmenopausal. Family history of breast cancer in maternal uncle at age 50, breast cancer in 2 maternal aunts, and breast cancer in paternal grandmother. Benign US biopsy breast VAD LT of the left breast, March 24, 2021. Benign US biopsy breast VAD LT of the left breast, June 02, 2020. Took hormonal contraceptives for 7 years. Physical Findings: Nurse did not find any significant physical abnormalities on exam. MG 3D Diag Mammo W/Cad TRACIE Bilateral CC and MLO view(s) were taken. Prior study comparison: March 24, 2021, left breast MG diagnostic mammo LT wo CAD. February 27, 2021, left breast US breast LT. December 08, 2020, left breast MG 3d diag mammo w/cad LT. June 02, 2020, left breast MG diagnostic mammo LT wo CAD. May 12, 2020, left breast US breast limited LT. There are scattered fibroglandular densities. Previous mammotome biopsy in the left breast x 2. There is chronic nodularity in the left breast. No significant new findings when compared with previous films. These results were verbally communicated with the patient and result sheet given to the patient on 06/01/21. ASSESSMENT: Incomplete: need additional imaging evaluation, BI-RAD 0 RECOMMENDATION: Ultrasound of both breasts. (right periareolar for milky discharge, left for discharge, benign, milky now but initially bloody)
--- NOTE | 2021-06-01 09:10 | USB ---
Reason for exam: additional evaluation requested from abnormal screening. History: Patient is postmenopausal. Family history of breast cancer in maternal uncle at age 50, breast cancer in 2 maternal aunts, and breast cancer in paternal grandmother. Benign US biopsy breast VAD LT of the left breast, March 24, 2021. Benign US biopsy breast VAD LT of the left breast, June 02, 2020. Took hormonal contraceptives for 7 years. US Breast Limited BILAT Right limited breast ultrasound including focal area of concern, retroareolar and axilla demonstrates no cystic or solid lesion seen. Left complete breast ultrasound includes all four quadrants, the retroareolar region and axilla. Finding demonstrates a 1.7 x 1.0 x 1.4cm oval, solid lesion at 2 o'clock prior biopsy. Entire left breast, right retroareolar/periareolar scanned. These results were verbally communicated with the patient and result sheet given to the patient on 06/01/21. ASSESSMENT: Benign, BI-RAD 2 RECOMMENDATION: Routine screening mammogram of both breasts in 10 months. Manage on a clinical basis with regard to benign milky nipple discharge bilaterally.
== END | disposition home or self-care (01) ==
LOC: RADMAMWWP 06:59
PROVIDERS: ATTEND Surgery
DX: N64.89 Other specified disorders of breast (principal); Z78.0 Asymptomatic menopausal state; Z80.3 Family history of malignant neoplasm of breast
CPT/HCPCS: 77066; 76642; G0279; 77062

== ENCOUNTER 2021-07-07 14:02 | Emergency (ER) | payer MEDICARE, OTHER ==
--- NOTE | 2021-07-07 15:54 | ED ---
General Adult HPI - General Chief complaint: Shortness of Breath Stated complaint: ANNALISA/Back Pain Time Seen by Provider: 07/07/21 15:31 Source: patient Mode of arrival: wheelchair Limitations: no limitations - History of Present Illness Initial comments: Dictation was produced using [employer] dictation software. please excuse any grammatical, word or spelling errors. Chief Complaint: 45-year-old female presents to the emergency department for chest pain History of Present Illness: Is a 45-year-old female she presents with substernal chest pain that she describes as sharp and radiates to the back. She states that the symptoms are associated with paresthesias to the entire left upper extremity. Patient states she has strong family history of heart attacks and sudden . She is worried she is having a heart attack. Patient states she doesn't have any pain with inspiration but she does have exacerbation with expiration. Patient states that the pain is anywhere between a 5 and an 8 on a pain scale of 10. States that she's having active symptoms at this time. She reports onset of symptoms this morning was very severe. No associated diaphoresis. Mild nausea. The ROS documented in this emergency department record has been reviewed and confirmed by me. Those systems with pertinent positive or negative responses have been documented in the HPI. All other systems are other negative and/or noncontributory. PHYSICAL EXAM: General Impression: Alert and oriented x3, not in acute distress HEENT: Normocephalic atraumatic, extra-ocular movements intact, pupils equal and reactive to light bilaterally, mucous membranes moist. Cardiovascular: Heart regular rate and rhythm Chest: Able to complete full sentences, no retractions, no tachypnea Abdomen: abdomen soft, non-tender, non-distended, no organomegaly Musculoskeletal: Pulses present and equal in all extremities, no peripheral edema Motor: no focal deficits noted Neurological: CN II-XII grossly intact, no focal motor or sensory deficits noted Skin: Intact with no visualized rashes Psych: Normal affect and mood ED course: 45-year-old well-appearing female presents to the emergency department for atypical chest pain. Symptoms are worrisome for acute aortic dissection. Vital signs upon arrival are within acceptable limits. EKG interpretation: Ventricular rate 66, normal sinus rhythm, MS interval 162, QRS 80, QTc 436. No MS prolongation, no QTC prolongation, no ST or T-wave changes noted. Overall, this EKG is unremarkable Laboratory evaluation obtained. CBC, coag panel, metabolic panel is unremarkable. Troponin is negative. CT angios the chest shows no PE or aortic dissection. Patient reevaluated at bedside at 5:22 PM found to be stable medical condition. Patient be discharged advised follow-up with primary care doctor. - Related Data Home Medications Medication Instructions Recorded Confirmed Baclofen [Lioresal] 50 mg PO HS 04/25/20 05/29/21 Diazepam [Valium] 10 mg PO TID PRN 04/25/20 05/29/21 Lisinopril [Zestril] 10 mg PO QAM 04/25/20 05/29/21 OXcarbazepine [Trileptal] 900 mg PO BID 04/25/20 05/29/21 PARoxetine [Paxil] 20 mg PO HS 04/25/20 05/29/21 Pantoprazole Sodium [Protonix] 40 mg PO BID 04/25/20 05/29/21 Pregabalin [Lyrica] 150 mg PO HS 04/25/20 05/29/21 Cetirizine HCl 10 mg PO DAILY 03/19/21 05/29/21 Cholecalciferol [Vitamin D3 (25 25 mcg PO DAILY 03/19/21 05/29/21 Mcg = 1000 Iu)] Meclizine [Antivert] 25 mg PO TID PRN 03/19/21 05/29/21 ondansetron HCL [Zofran] 8 mg PO Q8HR PRN 03/19/21 05/29/21 Previous Rx's Medication Instructions Recorded Cephalexin [Keflex] 500 mg PO BID #14 cap 05/22/21 Fluconazole [Diflucan] 150 mg PO ONCE #2 tab 05/22/21 Allergies Allergy/AdvReac Type Severity Reaction Status Date / Time latex Allergy Anaphylaxis Verified 07/07/21 15:08 Review of Systems ROS Statement: Those systems with pertinent positive or pertinent negative responses have been documented in the HPI. ROS Other: All systems not noted in ROS Statement are negative. 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"; History of Any Multi-Drug Resistant Organisms: C-DIFF Date of last positivie culture/infection: 2003 MDRO Source:: bowel Past Surgical History: Section, Cholecystectomy, Hysterectomy Additional Past Surgical History / Comment(s): hysterectomy, oophorectomy and salpingectomy; patient states she "coded and " from cholecystectomy complications during surgery; section x2; Past Anesthesia/Blood Transfusion Reactions: No Reported Reaction Past Psychological History: Anxiety, Bipolar, Depression, Panic Disorder, PTSD Smoking Status: Never smoker, Second hand smoke exposure Past Alcohol Use History: None Reported Past Drug Use History: Marijuana - Past Family History Father Family Medical History: Cancer, Coronary Artery Disease (CAD) Additional Family Medical History / Comment(s): neck cancer; Mother Family Medical History: Hypertension Additional Family Medical History / Comment(s): mental illness Brother(s) Family Medical History: Cancer Additional Family Medical History / Comment(s): neck cancer General Exam Limitations: no limitations Course Vital Signs 07/07/21 07/07/21 15:03 15:47 Temperature 97.9 F Pulse Rate 71 78 Respiratory 18 18 Rate Blood Pressure 141/104 139/88 O2 Sat by Pulse 100 99 Oximetry Medical Decision Making - Lab Data Result diagrams: 07/07/21 16:06 07/07/21 16:06 Lab Results 07/07/21 07/07/21 07/07/21 Range/Units 16:06 16:06 16:06 WBC 5.7 (3.8-10.6) k/uL RBC 3.82 (3.80-5.40) m/uL Hgb 12.8 (11.4-16.0) gm/dL Hct 36.0 (34.0-46.0) % MCV 94.2 (80.0-100.0) fL MCH 33.6 (25.0-35.0) pg MCHC 35.6 (31.0-37.0) g/dL RDW 11.6 (11.5-15.5) % Plt Count 294 (150-450) k/uL MPV 7.3 Neutrophils % 58 % Lymphocytes % 24 % Monocytes % 7 % Eosinophils % 7 % Basophils % 1 % Neutrophils # 3.3 (1.3-7.7) k/uL Lymphocytes # 1.4 (1.0-4.8) k/uL Monocytes # 0.4 (0-1.0) k/uL Eosinophils # 0.4 (0-0.7) k/uL Basophils # 0.1 (0-0.2) k/uL PT 10.3 (9.0-12.0) sec INR 1.0 (<1.2) APTT 27.2 (22.0-30.0) sec Sodium 136 L (137-145) mmol/L Potassium 3.9 (3.5-5.1) mmol/L Chloride 103 (98-107) mmol/L Carbon Dioxide 25 (22-30) mmol/L Anion Gap 8 mmol/L BUN 11 (7-17) mg/dL Creatinine 0.52 (0.52-1.04) mg/dL Est GFR (CKD-EPI)AfAm >90 (>60 ml/min/1.73 sqM) Est GFR (CKD-EPI)NonAf >90 (>60 ml/min/1.73 sqM) Glucose 85 (74-99) mg/dL Calcium 9.1 (8.4-10.2) mg/dL Troponin I (0.000-0.034) ng/mL 07/07/21 Range/Units 16:06 WBC (3.8-10.6) k/uL RBC (3.80-5.40) m/uL Hgb (11.4-16.0) gm/dL Hct (34.0-46.0) % MCV (80.0-100.0) fL MCH (25.0-35.0) pg MCHC (31.0-37.0) g/dL RDW (11.5-15.5) % Plt Count (150-450) k/uL MPV Neutrophils % % Lymphocytes % % Monocytes % % Eosinophils % % Basophils % % Neutrophils # (1.3-7.7) k/uL Lymphocytes # (1.0-4.8) k/uL Monocytes # (0-1.0) k/uL Eosinophils # (0-0.7) k/uL Basophils # (0-0.2) k/uL PT (9.0-12.0) sec INR (<1.2) APTT (22.0-30.0) sec Sodium (137-145) mmol/L Potassium (3.5-5.1) mmol/L Chloride (98-107) mmol/L Carbon Dioxide (22-30) mmol/L Anion Gap mmol/L BUN (7-17) mg/dL Creatinine (0.52-1.04) mg/dL Est GFR (CKD-EPI)AfAm (>60 ml/min/1.73 sqM) Est GFR (CKD-EPI)NonAf (>60 ml/min/1.73 sqM) Glucose (74-99) mg/dL Calcium (8.4-10.2) mg/dL Troponin I <0.012 (0.000-0.034) ng/mL Disposition Clinical Impression: Chest pain Disposition: HOME SELF-CARE Condition: Good Instructions (If sedation given, give patient instructions): Chest Pain (ED) Is patient prescribed a controlled substance at d/c from ED?: No Referrals: Wilberto Muller MD [Primary Care Provider] - 1-2 days
[2021-07-07 16:22] LABS: Basophils # (A) 0.1 k/uL (0-0.2); Basophils % (A) 1 %; Eosinophils # (A) 0.4 k/uL (0-0.7); Eosinophils % (A) 7 %; HGB 12.8 gm/dL (11.4-16.0); Lymphocytes # (A) 1.4 k/uL (1.0-4.8); Lymphocytes % (A) 24 %; MCH 33.6 pg (25.0-35.0); MCHC 35.6 g/dL (31.0-37.0); MCV 94.2 fL (80.0-100.0); Mean Platelet Volume 7.3; Monocytes # (A) 0.4 k/uL (0-1.0); Monocytes % (A) 7 %; Neutrophils # (A) 3.3 k/uL (1.3-7.7); Neutrophils % (A) 58 %; Platelet Count 294 k/uL (150-450); RBC 3.82 m/uL (3.80-5.40); RDW 11.6 % (11.5-15.5); WBC 5.7 k/uL (3.8-10.6)
[2021-07-07 16:27] VITALS: PULSE 78
[2021-07-07 16:30] LABS: Partial Thromboplastin Time 27.2 sec (22.0-30.0); Prothrombin Time 10.3 sec (9.0-12.0)
--- NOTE | 2021-07-07 16:32 | CT ---
EXAMINATION TYPE: CT angio chest DATE OF EXAM: 07/07/2021 4:25 PM COMPARISON: None. HISTORY: chest pain CT DLP: 320.2 mGycm Automated exposure control for dose reduction was used. CONTRAST: CTA scan of the thorax is performed with IV Contrast, patient injected with 100 mL of Isovue 370, pul monary embolism protocol. MIP images are created and reviewed. FINDINGS: LUNGS: The lungs are grossly clear, there is no concerning parenchymal mass or nodule identified. T here is no pleural effusion or pneumothorax seen. The tracheobronchial tree is patent. MEDIASTINUM: There is satisfactory enhancement of the pulmonary artery and its branches, there is no CT evidence for pulmonary embolism. There are no greater than 1 cm hilar or mediastinal lymph nodes. No cardiomegaly or pericardial effusion is seen. OTHER: Cholecystectomy clips are seen. Slight scoliotic curvature. IMPRESSION: NO ACUTE PULMONARY EMBOLISM. NO SUSPICIOUS ACUTE PULMONARY PROCESS.
[2021-07-07 16:38] LABS: African American GFR (CKD) >90 (>60 ml/min/1.73 sqM); Anion Gap 8 mmol/L; Blood Urea Nitrogen 11 mg/dL (7-17); Calcium 9.1 mg/dL (8.4-10.2); Carbon Dioxide 25 mmol/L (22-30); Chloride 103 mmol/L (98-107); Glucose 85 mg/dL (74-99); Non-African American GFR(CKD) >90 (>60 ml/min/1.73 sqM); Potassium 3.9 mmol/L (3.5-5.1); Sodium 136 mmol/L (137-145)
[2021-07-07 17:44] VITALS: BP 128/79; RESP 16; TEMP 98.2
== END 2021-07-07 17:43 | disposition home or self-care (01) ==
LOC: EC 14:02
DX: R07.89 Other chest pain (principal); F41.9 Anxiety disorder, unspecified; F31.9 Bipolar disorder, unspecified; F43.12 Post-traumatic stress disorder, chronic; F12.90 Cannabis use, unspecified, uncomplicated; Z91.040 Latex allergy status; Z90.710 Acquired absence of both cervix and uterus; Z90.49 Acquired absence of other specified parts of digestive tract; Z86.73 Personal history of transient ischemic attack (TIA), and cerebral infarction without residual deficits
CPT/HCPCS: 99285; 36415; 93005; 80048; 84484; 85025; 85610; 85730; 71275; Q9967

== ENCOUNTER → 2021-09-24 | Outpatient (CLI) | payer MEDICARE, OTHER ==
[2021-09-24 12:12] VITALS: BP 121/86; PULSE 69; RESP 16; TEMP 98.3
--- NOTE | 2021-09-24 13:05 | P.PN ---
Subjective Progress Note Date: 09/24/21 Principal diagnosis: occasional left nipple discharge/white Indigo is a 45 year old white female with a complaint of bilateral white milky discharge. This has been intermittent for 7 months. Prior to this she had bloody discharge from the left side starting in mid March. This started approximately 4 days after a left breast ultrasound core biopsy. The ultrasound core biopsy was done on 03-24-21. The ultrasound core biopsy was positive for fat necrosis/scar with inflammation and granulation tissue. It was negative for malignancy. The patient had before noted a lump behind the left nipple areolar complex has resolved. The patient has bilateral nodularity with no prominent discrete single masses or nodules. At this time the discharge has decreased. She had a prolactin level done on which was elevated at 39 with upper limit of normal being 23.3. She underwent an MRI of the brain performed on the same date which was a normal MR scan of the brain no evidence of pituitary tumor. On when she had bilateral mammograms after which ultrasound of both breasts was recommended ultrasound revealed no specific lesions of concern in the right breast, and on the left breast a 1.7 cm solid lesion at 2:00 which had been biopsied in the past this was felt to be benign BIRADS 2 and repeat P8 bilateral screening mammogram of both breasts in 10 months was recommended. The patient states she has had recently some crushing type pain posterior to the breast and the right chest wall. She has not had any trauma or infection of the breast. It occurs any time she supports her breast. It is about a 3 on a scale of 1-10. It increases as the day proceeds. Caffeine: 2 cups coffee/week nicotine: none chocolate: 1 time/week hormones: did use HRT for 5 years stopped 10 years ago BCP: stopped 1995; used them for 7 years Hormonal History: menarche: 12 M1, breast fed: no, age at first : 22 menopause: hysterectomy at 32 for polycystic ovaries; both ovaries removed Surgical history: 1. Total abdominal hysterectomy for endometriosis 2. Cholecystectomy 3. Sepsis following cholecystectomy related to an accessory bile duct 4. 3 exploratory laparotomies to lyse scar tissue 5. Multiple laparoscopic evaluations for abdominal pain prior to hysterectomy 6. 2 C-sections Medical history: 1. Patient has 3 kidneys 2 on the right and one on the left patient is history of kidney stones 2. Fibromyalgia 3. Irritable bowel syndrome 4. bipolar disorder 5. Personality disorder 6. Anxiety 7. Severe posttraumatic stress disorder 8. GERD 9. HTN Social history: Smoke: Negative Alcohol: Negative Drugs: Marijuana daily Review of systems: HEENT: Sore and nose, sore right upper jaw Lungs: Negative Heart: Negative GI: GERD, IBS : as above kidney stones Musculoskeletal: Osteoporosis, severe arthritis Psychiatric: Bipolar, personality disorder, anxiety Bleeding abnormalities: anemic occasionally allergies: latex, seasonal allergies Objective - Vital Signs Vital signs: Vital Signs Temp 98.3 F 09/24/21 12:06 Pulse 69 09/24/21 12:06 Resp 16 09/24/21 12:06 BP 121/86 09/24/21 12:06 Pulse Ox Intake & Output 09/23/21 09/24/21 09/24/21 18:59 06:59 18:59 Weight 86.183 kg - Exam BMI 33.7 - Constitutional General appearance: Present: cooperative - EENT Eyes: Present: EOMI ENT: Present: hearing grossly normal - Neck Neck: Present: normal ROM - Respiratory Respiratory: bilateral: CTA - Cardiovascular Heart sounds: normal: S1, S2 - Gastrointestinal General gastrointestinal: Present: soft - Integumentary Integumentary: Present: normal turgor - Musculoskeletal Musculoskeletal: Present: gait normal - Psychiatric Psychiatric: Present: A&O x's 3, appropriate affect, intact judgment & insight - Additional findings Additional findings: Breast Exam: BRA: 36DDD Inspection: Right breast larger than left breast Palpation: Right breast: Multiple positional exam no dominant masses or nodules of concern no nipple discharge of concern on today's exam Right axilla: No adenopathy of concern Left breast: Multi-positional exam fibrocystic changes no dominant masses or nodules of concern Left axilla: No adenopathy of concern Assessment and Plan Assessment: Impression: 1. fibrocystic breast changes 2. right breast larger than left breast 3. elevated prolactin level 4. Chest wall discomfort breast support/patient will be cautious about her breast support Plan: 1. follow up with fishing game warden elevated prolactin 2. Nothing in the breast which required interventional biopsy this time 3. Bilateral mammogram in 1 year with examination at that time 4. Follow-up sooner questions or concerns CC: Dr. Muller
== END ==
LOC: WWCWWP 11:15
PROVIDERS: ATTEND Surgery
DX: N60.11 Diffuse cystic mastopathy of right breast (principal); N60.12 Diffuse cystic mastopathy of left breast; N64.89 Other specified disorders of breast; E22.1 Hyperprolactinemia; F41.9 Anxiety disorder, unspecified; I10 Essential (primary) hypertension; F31.9 Bipolar disorder, unspecified; F43.10 Post-traumatic stress disorder, unspecified; Z91.040 Latex allergy status

== ENCOUNTER 2021-12-11 11:57 | Inpatient (IN) | payer MEDICARE, OTHER ==
--- NOTE | 2021-12-11 12:28 | ED ---
General Adult HPI - General Chief complaint: Neuro Symptoms/Deficit Stated complaint: Wants BP checked Time Seen by Provider: 12/11/21 12:12 Source: patient, RN notes reviewed, old records reviewed Mode of arrival: ambulatory Limitations: no limitations - History of Present Illness Initial comments: 46-year-old female presenting with gait instability, dizziness. Her symptoms began relatively abruptly at 10 AM this morning 2 hours prior to arrival. P atient states she has previous history of CVA in the remote past and at times does have an unsteady gait however this was worse this morning. She denies headache. Denies nausea or vomiting. Denies vision changes. No central chest pain. No abdominal pain. Patient is not on any anticoagulation. Denies illicit drugs or alcohol, states she smokes marijuana daily. - Related Data Home Medications Medication Instructions Recorded Confirmed Baclofen [Lioresal] 50 mg PO HS 04/25/20 09/24/21 Diazepam [Valium] 10 mg PO TID PRN 04/25/20 09/24/21 Lisinopril [Zestril] 10 mg PO QAM 04/25/20 09/24/21 OXcarbazepine [Trileptal] 900 mg PO BID 04/25/20 09/24/21 PARoxetine [Paxil] 20 mg PO HS 04/25/20 09/24/21 Pantoprazole Sodium [Protonix] 40 mg PO BID 04/25/20 09/24/21 Pregabalin [Lyrica] 150 mg PO HS 04/25/20 09/24/21 Cetirizine HCl 10 mg PO WEEKLY 03/19/21 09/24/21 Cholecalciferol [Vitamin D3 (25 25 mcg PO DAILY 03/19/21 09/24/21 Mcg = 1000 Iu)] Meclizine [Antivert] 25 mg PO TID PRN 03/19/21 09/24/21 ondansetron HCL [Zofran] 8 mg PO Q8HR PRN 03/19/21 09/24/21 cloNIDine HCL [Catapres] 0.1 mg PO HS 09/24/21 09/24/21 Previous Rx's Medication Instructions Recorded Fluconazole [Diflucan] 150 mg PO ONCE #2 tab 05/22/21 Allergies Allergy/AdvReac Type Severity Reaction Status Date / Time latex Allergy Anaphylaxis Verified 09/24/21 12:02 Review of Systems ROS Statement: Those systems with pertinent positive or pertinent negative responses have been documented in the HPI. ROS Other: All systems not noted in ROS Statement are negative. 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"; History of Any Multi-Drug Resistant Organisms: C-DIFF Date of last positivie culture/infection: 2003 MDRO Source:: bowel Past Surgical History: Section, Cholecystectomy, Hysterectomy Additional Past Surgical History / Comment(s): hysterectomy, oophorectomy and salpingectomy; patient states she "coded and " from cholecystectomy complications during surgery; section x2; Past Anesthesia/Blood Transfusion Reactions: No Reported Reaction Past Psychological History: Anxiety, Bipolar, Depression, Panic Disorder, PTSD Smoking Status: Never smoker, Second hand smoke exposure Past Alcohol Use History: None Reported Past Drug Use History: Marijuana - Past Family History Father Family Medical History: Cancer, Coronary Artery Disease (CAD) Additional Family Medical History / Comment(s): neck cancer; Mother Family Medical History: Hypertension Additional Family Medical History / Comment(s): mental illness Brother(s) Family Medical History: Cancer Additional Family Medical History / Comment(s): neck cancer General Exam Limitations: no limitations General appearance: alert Head exam: Present: atraumatic, normocephalic Eye exam: Present: normal appearance, PERRL, EOMI. Absent: nystagmus ENT exam: Present: normal exam Neck exam: Present: normal inspection. Absent: tenderness, meningismus Respiratory exam: Present: normal lung sounds bilaterally. Absent: respiratory distress, wheezes Cardiovascular Exam: Present: regular rate, normal rhythm GI/Abdominal exam: Present: soft. Absent: distended, tenderness Extremities exam: Present: normal inspection, normal capillary refill. Absent: pedal edema Neurological exam: Present: alert, oriented X3, CN II-XII intact, motor sensory deficit ( ataxia on the left upper extremity, strength is 5 out of 5 in all extremities, normal sensation.) Psychiatric exam: Present: anxious Skin exam: Present: warm, dry, intact. Absent: cyanosis, diaphoretic Course Vital Signs 12/11/21 12/11/21 12/11/21 12:07 12:20 12:28 Temperature 98.8 F 98.8 F 98.8 F Pulse Rate 98 97 96 Respiratory 18 18 18 Rate Blood Pressure 136/96 142/97 144/107 O2 Sat by Pulse 98 98 99 Oximetry - Reevaluation(s) Reevaluation #1: 12/11/21 12:26 Stroke activated. Case discussed with Dr. Naik covering for stroke neur ology. Not a TPA candidate. Low NIH of 2. Does recommend aspirin, Brilinta and statin EKG Findings - EKG Comments: EKG Findings:: EKG: Sinus rhythm rate of 88, MT interval 162, QRS duration 89, QTC 397, no ST segment elevation. Medical Decision Making - Medical Decision Making 46-year-old female presenting with gait instability and ataxia. Patient has left upper extremity ataxia. Strength is 5 out of 5 in all extremities. She has some stuttering but no aphasia or dysarthria. Normal facial symmetry. Head CT negative for acute cranial hemorrhage or mass effect. CT angiography negative for occlusion or stenosis. Case had been discussed with the stroke neurologist who recommends to antiplatelets and statin. He's on Mr. the emergency department. The patient will be admitted to Dr. Gaspar who is aware. Neurology placed on consult. - Lab Data Result diagrams: 12/11/21 12:29 12/11/21 12:29 Lab Results 12/11/21 12/11/21 12/11/21 Range/Units 12:29 12:29 12:29 WBC 7.6 (3.8-10.6) k/uL RBC 4.22 (3.80-5.40) m/uL Hgb 14.4 (11.4-16.0) gm/dL Hct 40.5 (34.0-46.0) % MCV 96.2 (80.0-100.0) fL MCH 34.2 (25.0-35.0) pg MCHC 35.6 (31.0-37.0) g/dL RDW 12.8 (11.5-15.5) % Plt Count 312 (150-450) k/uL MPV 7.1 Neutrophils % 72 % Lymphocytes % 16 % Monocytes % 6 % Eosinophils % 4 % Basophils % 1 % Neutrophils # 5.5 (1.3-7.7) k/uL Lymphocytes # 1.2 (1.0-4.8) k/uL Monocytes # 0.5 (0-1.0) k/uL Eosinophils # 0.3 (0-0.7) k/uL Basophils # 0.1 (0-0.2) k/uL PT 10.0 (9.0-12.0) sec INR 0.9 (<1.2) APTT 28.0 (22.0-30.0) sec Sodium 132 L (137-145) mmol/L Potassium 4.1 (3.5-5.1) mmol/L Chloride 99 (98-107) mmol/L Carbon Dioxide 22 (22-30) mmol/L Anion Gap 11 mmol/L BUN 12 (7-17) mg/dL Creatinine 0.65 (0.52-1.04) mg/dL Est GFR (CKD-EPI)AfAm >90 (>60 ml/min/1.73 sqM) Est GFR (CKD-EPI)NonAf >90 (>60 ml/min/1.73 sqM) Glucose 105 H (74-99) mg/dL Calcium 9.2 (8.4-10.2) mg/dL Total Bilirubin 0.3 (0.2-1.3) mg/dL AST 21 (14-36) U/L ALT 14 (4-34) U/L Alkaline Phosphatase 167 H (38-126) U/L Troponin I (0.000-0.034) ng/mL Total Protein 8.0 (6.3-8.2) g/dL Albumin 4.6 (3.5-5.0) g/dL Serum Alcohol <10 mg/dL 12/11/21 Range/Units 12:29 WBC (3.8-10.6) k/uL RBC (3.80-5.40) m/uL Hgb (11.4-16.0) gm/dL Hct (34.0-46.0) % MCV (80.0-100.0) fL MCH (25.0-35.0) pg MCHC (31.0-37.0) g/dL RDW (11.5-15.5) % Plt Count (150-450) k/uL MPV Neutrophils % % Lymphocytes % % Monocytes % % Eosinophils % % Basophils % % Neutrophils # (1.3-7.7) k/uL Lymphocytes # (1.0-4.8) k/uL Monocytes # (0-1.0) k/uL Eosinophils # (0-0.7) k/uL Basophils # (0-0.2) k/uL PT (9.0-12.0) sec INR (<1.2) APTT (22.0-30.0) sec Sodium (137-145) mmol/L Potassium (3.5-5.1) mmol/L Chloride (98-107) mmol/L Carbon Dioxide (22-30) mmol/L Anion Gap mmol/L BUN (7-17) mg/dL Creatinine (0.52-1.04) mg/dL Est GFR (CKD-EPI)AfAm (>60 ml/min/1.73 sqM) Est GFR (CKD-EPI)NonAf (>60 ml/min/1.73 sqM) Glucose (74-99) mg/dL Calcium (8.4-10.2) mg/dL Total Bilirubin (0.2-1.3) mg/dL AST (14-36) U/L ALT (4-34) U/L Alkaline Phosphatase (38-126) U/L Troponin I <0.012 (0.000-0.034) ng/mL Total Protein (6.3-8.2) g/dL Albumin (3.5-5.0) g/dL Serum Alcohol mg/dL Critical Care Time Critical Care Time: Yes Total Critical Care Time: 35 Disposition Clinical Impression: Cerebrovascular accident (CVA), Ataxia Disposition: ADMITTED IP TO THIS [facility] Condition: Stable Is patient prescribed a controlled substance at d/c from ED?: No Referrals: Wilberto Muller MD [Primary Care Provider] - 1-2 days Decision to Admit Reason: Admit from EC Decision Date: 12/11/21 Decision Time: 13:38
--- NOTE | 2021-12-11 12:44 | CT ---
EXAMINATION TYPE: CT brain wo con for TPA DATE OF EXAM: 12/11/2021 COMPARISON: None HISTORY: Stuttering, history of stroke, involuntary movements. CT DLP: 1093.[address] of the brain was performed. The ventricles, basal cisterns and sulci overlying the cerebral convexities demonstrate a normal appe arance. There is no evidence for intracranial hemorrhage or sulcal effacement. No mass effects are seen. Osseous calvarium is intact. Mild mucosal thickening left maxillary sinus. If symptoms persist consider MRI as clinically warranted. IMPRESSION: 1. No acute intracranial process is seen at this time.
[2021-12-11 12:47] LABS: Basophils # (A) 0.1 k/uL (0-0.2); Basophils % (A) 1 %; Eosinophils # (A) 0.3 k/uL (0-0.7); Eosinophils % (A) 4 %; HCT 40.5 % (34.0-46.0); HGB 14.4 gm/dL (11.4-16.0); Lymphocytes # (A) 1.2 k/uL (1.0-4.8); Lymphocytes % (A) 16 %; MCH 34.2 pg (25.0-35.0); MCHC 35.6 g/dL (31.0-37.0); MCV 96.2 fL (80.0-100.0); Mean Platelet Volume 7.1; Monocytes # (A) 0.5 k/uL (0-1.0); Monocytes % (A) 6 %; Neutrophils # (A) 5.5 k/uL (1.3-7.7); Neutrophils % (A) 72 %; Platelet Count 312 k/uL (150-450); RBC 4.22 m/uL (3.80-5.40); RDW 12.8 % (11.5-15.5); WBC 7.6 k/uL (3.8-10.6)
[2021-12-11 13:03] LABS: INR 0.9 (<1.2)
[2021-12-11] MEDS ORDERED: SODIUM CHLORIDE 0.9% 500 ML 500 ML IV ONE (13:04)
[2021-12-11] MEDS ORDERED: TICAGRELOR 90 MG TAB PO STA ×2 (13:07→13:08)
[2021-12-11] MEDS ORDERED: ASPIRIN 325 MG TAB PO STA (13:07)
[2021-12-11] MEDS ORDERED: ATORVASTATIN 40 MG TAB PO STA (13:08)
[2021-12-11 13:19] LABS: ALT 14 U/L (4-34); AST 21 U/L (14-36); African American GFR (CKD) >90 (>60 ml/min/1.73 sqM); Albumin 4.6 g/dL (3.5-5.0); Alcohol <10 mg/dL; Alkaline Phosphatase 167 U/L (38-126); Anion Gap 11 mmol/L; Blood Urea Nitrogen 12 mg/dL (7-17); Calcium 9.2 mg/dL (8.4-10.2); Carbon Dioxide 22 mmol/L (22-30); Chloride 99 mmol/L (98-107); Glucose 105 mg/dL (74-99); Non-African American GFR(CKD) >90 (>60 ml/min/1.73 sqM); Potassium 4.1 mmol/L (3.5-5.1); Sodium 132 mmol/L (137-145); Total Bilirubin 0.3 mg/dL (0.2-1.3)
--- NOTE | 2021-12-11 13:26 | CT ---
EXAMINATION TYPE: CT angio head neck DATE OF EXAM: 12/11/2021 HISTORY: Stuttering, history of stroke, involuntary movements. COMPARISON: Nonenhanced CT brain performed earlier same day CT DLP: 352.1 mGycm. Automated Exposure Control for Dose Reduction was Utilized. TECHNIQUE: CTA scan of the neck is performed with IV Contrast, patient injected with 65 mL of Isovue 370, axial images are obtained, coronal and sagittal reformatted images are reviewed. MIP and 3D rec onstructed images are created on an independent workstation and reviewed. FINDINGS: Carotid/Vascular Structures: Artifacts at the level of the dental work. The vertebral arteries are partially obscured in the trans verse foramina by dense contrast within the adjacent veins. Otherwise normal caliber and enhancement of the neck arteries and intracranial arteries without significant stenosis, occlusion, dissection, a neurysm or AV malformation. Patent major intracranial venous sinuses. Questionable filling defect within the most superior aspect of the right internal jugular vein which could be artifactual due to the arterial phase scanning however a nonocclusive thrombus cannot be exc luded. Further jugular venous Doppler assessment can be considered. Markedly reduced caliber of the m edial aspect of the left innominate vein with reflux of injected contrast into the paraspinal veins. No aggressive bone lesion. Other: No intracranial abnormal enhancement. Scattered bilateral cervical subcentimeter lymph nodes, nonspecific. IMPRESSION: 1. No definite acute arterial abnormality, significant stenosis or occlusion seen in the neck or the intracranial arteries. 2. Questionable filling defect within the most superior aspect of the right internal jugular vein whi ch could be artifactual due to the arterial scanning however a subtle nonocclusive thrombus cannot be excluded, please correlate clinically. Further jugular venous Doppler assessment can be considered. Other incidental findings as detailed above.
[2021-12-11 13:40] LABS: Amphetamine Screen,Urine Not Detected (NotDetected); Barbiturate Screen,Urine Not Detected (NotDetected); Benzodiazepines Screen,Urine Detected (NotDetected); Cocaine Screen,Urine Not Detected (NotDetected); Methadone Screen, Urine Not Detected (NotDetected); Opiate Screen,Urine Not Detected (NotDetected); Oxycodone Screen, Urine Not Detected (NotDetected); Phencyclidine Screen,Urine Not Detected (NotDetected); Tricyclic Antidepressant,Urine Detected (NotDetected); Urn Cannabinoid Scrn Detected (NotDetected)
--- NOTE | 2021-12-11 13:40 | P.HPIM ---
History of Present Illness pt is a pleasant 46yo F with past medical history of CVA/TIA, Hysterectomy, Anxiety, Bipolar, Depression, Panic Disorder, PTSD Patient presents with ataxia which is started this morning around 10:00, she fe els both legs and feet the left more than right but denies weakness in the arms, she reports blurred vision and slow with interrupted speech, however she understands well and follows commands, she is fully awake and oriented. She has headache for 2 days. She sees double vision especially on the right eye on looking into the right side Also she complained from mild right upper quadrant abdominal pain. She has history of stroke 10 years ago with no residual effect when she says this happened to her before. She is not on baby aspirin at home. She denies chest pain or dyspnea or coughing. No nausea vomiting or diarrhea. No urinary complaints. She denies smoking, alcohol. She uses marijuana at times. She is hemodynamically stable. Labs including CBC, INR, BMP, liver enzymes are unremarkable. Alcohol level less than 10. CT of the brain: No acute process CTA of the brain pending results however primary report showing no acute process. An emergency room patient was started given aspirin 325 mg, Lipitor once and Brilinta once Review of Systems CONSTITUTIONAL: No fever, no malaise, no fatigue. HEENT: No recent visual problems or hearing problems. Denied any sore throat. CARDIOVASCULAR: No orthopnea, PND, no palpitations, no syncope. PULMONARY: No shortness of breath, no cough, no hemoptysis. GASTROINTESTINAL: No diarrhea, no nausea, no vomiting, no abdominal pain. Normoactive bowel sounds. -NEUROLOGICAL: As above HEMATOLOGICAL: Denies any bleeding or petechiae. GENITOURINARY: Denies any burning micturition, frequency, or urgency. MUSCULOSKELETAL/RHEUMATOLOGICAL: Denies any joint pain, swelling, or any muscle pain. ENDOCRINE: Denies any polyuria or polydipsia. 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"; History of Any Multi-Drug Resistant Organisms: C-DIFF Date of last positivie culture/infection: 2003 MDRO Source:: bowel Past Surgical History: Section, Cholecystectomy, Hysterectomy Additional Past Surgical History / Comment(s): hysterectomy, oophorectomy and salpingectomy; patient states she "coded and " from cholecystectomy com plications during surgery; section x2; Past Anesthesia/Blood Transfusion Reactions: No Reported Reaction Past Psychological History: Anxiety, Bipolar, Depression, Panic Disorder, PTSD Smoking Status: Never smoker, Second hand smoke exposure Past Alcohol Use History: None Reported Past Drug Use History: Marijuana - Past Family History Father Family Medical History: Cancer, Coronary Artery Disease (CAD) Additional Family Medical History / Comment(s): neck cancer; Mother Family Medical History: Hypertension Additional Family Medical History / Comment(s): mental illness Brother(s) Family Medical History: Cancer Additional Family Medical History / Comment(s): neck cancer Medications and Allergies Home Medications Medication Instructions Recorded Confirmed Type Baclofen [Lioresal] 50 mg PO HS 04/25/20 09/24/21 History Diazepam [Valium] 10 mg PO TID PRN 04/25/20 09/24/21 History Lisinopril [Zestril] 10 mg PO QAM 04/25/20 09/24/21 History OXcarbazepine [Trileptal] 900 mg PO BID 04/25/20 09/24/21 History PARoxetine [Paxil] 20 mg PO HS 04/25/20 09/24/21 History Pantoprazole Sodium [Protonix] 40 mg PO BID 04/25/20 09/24/21 History Pregabalin [Lyrica] 150 mg PO HS 04/25/20 09/24/21 History Cetirizine HCl 10 mg PO WEEKLY 03/19/21 09/24/21 History Cholecalciferol [Vitamin D3 (25 25 mcg PO DAILY 03/19/21 09/24/21 History Mcg = 1000 Iu)] Meclizine [Antivert] 25 mg PO TID PRN 03/19/21 09/24/21 History ondansetron HCL [Zofran] 8 mg PO Q8HR PRN 03/19/21 09/24/21 History Fluconazole [Diflucan] 150 mg PO ONCE #2 tab 05/22/21 09/24/21 Rx cloNIDine HCL [Catapres] 0.1 mg PO HS 09/24/21 09/24/21 History Allergies Allergy/AdvReac Type Severity Reaction Status Date / Time latex Allergy Anaphylaxis Verified 09/24/21 12:02 Physical Exam Vitals: Vital Signs Temp Pulse Resp BP Pulse Ox 12/11/21 12:28 98.8 F 96 18 144/107 99 12/11/21 12:20 98.8 F 97 18 142/97 98 12/11/21 12:07 98.8 F 98 18 136/96 98 Intake and Output 12/10/21 12/11/21 12/11/21 22:59 06:59 14:59 Other: Weight 85.275 kg GENERAL: The patient is alert and oriented x3, not in any acute distress. Well developed, well nourished. HEENT: Pupils are round and equally reacting to light. EOMI. No scleral icterus. No conjunctival pallor. Normocephalic, atraumatic. No pharyngeal erythema. No thyromegaly. CARDIOVASCULAR: S1 and S2 present. No murmurs, rubs, or gallops. PULMONARY: Chest is clear to auscultation, no wheezing or crackles. ABDOMEN: Soft, nontender, nondistended, normoactive bowel sounds. No palpable organomegaly. MUSCULOSKELETAL: No joint swelling or deformity. EXTREMITIES: No cyanosis, clubbing, or pedal edema. -NEUROLOGICAL: Cranial nerves are grossly intact. Sensation is intact. Both legs mildly weak or no weakness but symmetrical. She has double vision on the right eye on moving and looking into the right eye. Meningeal signs are absent. SKIN: No rashes. No petechiae Results CBC & Chem 7: 12/11/21 12:29 Assessment and Plan Assessment: Acute ataxia, rule out new stroke History of CVA History of hysterectomy History of anxiety, bipolar and depression and PTSD, no acute event. Plan: This is a pleasant 46 years old female who presents with ataxia, rule out stroke Continue with aspirin Neuro check Neurology consult Check echocardiogram and carotid Doppler Check hemoglobin A1c, B12 and TSH Labs and medication were reviewed.. Continue same treatment. Continue with symptomatic treatment. Resume home medication. Monitor lytes and vitals. DVT and GI prophylaxis. Further recommendations depends on the clinical course of the patient DVT prophylaxis: Subcutaneous heparin GI Prophylaxis: Pepcid PT/OT: Pending Prognosis is guarded
[2021-12-11] MEDS: SODIUM CHLORIDE 0.9% 1,000 ML IV SCH (13:55)
--- NOTE | 2021-12-11 15:16 | US ---
EXAMINATION TYPE: US carotid duplex BILAT DATE OF EXAM: 12/11/2021 COMPARISON: NONE CLINICAL HISTORY: stroke. EXAM MEASUREMENTS: RIGHT: Peak Systolic Velocity (PSV) cm/sec ----- Right CCA: 70.3 ----- Right ICA: 94.1 ----- Right ECA: 75.4 ICA/CCA ratio: 1.3 RIGHT: End Diastole cm/sec ----- Right CCA: 26.7 ----- Right ICA: 38.0 ----- Right ECA: 17.1 LEFT: Peak Systolic Velocity (PSV) cm/sec ----- Left CCA: 78.8 ----- Left ICA: 100.0 ----- Left ECA: 63.0 ICA/CCA ratio: 1.3 LEFT: End Diastole cm/sec ----- Left CCA: 25.9 ----- Left ICA: 39.1 ----- Left ECA: 10.4 VERTEBRALS (direction of flow): Right Vertebral: Antegrade Left Vertebral: Antegrade Rhythm: Normal No significant stenosis IMPRESSION: No evidence for hemodynamically significant stenosis. Criteria for Assigning % of Stenosis / Diameter reduction (Estimation based on the indirect measurements of the internal carotid artery velocities (ICA PSV). 1. Normal (no stenosis)=ICA PSV < 125 cm/s: ratio < 2.0: ICA EDV<40 cm/s. 2. Less than 50% stenosis=ICA PSV < 125 cm/s: ratio < 2.0: ICA EDV<40 cm/s. 3. 50 to 69% stenosis=ICA PSV of 125 to 230 cm/s: ration 2.0 ? 4.0: ICA EDV 40-100 cm/s. 4. Greater than 70% stenosis to near occlusion= ICA PSV > 230 cm/s: ratio > 4.0: ICA EDV > 100 cm/s. 5. Near occlusion= ICA PSV velocities may be low or undetectable: variable ratio and ICA EDV. 6. Total occlusion=unable to detect flow.
--- NOTE | 2021-12-11 15:25 | US ---
EXAMINATION TYPE: US liver DATE OF EXAM: 12/11/2021 COMPARISON: NONE CLINICAL HISTORY: RUQ pain . EXAM MEASUREMENTS: Liver Length: 14.6 cm CBD: 0.5 cm Right Kidney: 12.0 x 4.5 x 4.3 cm Pancreas: visualized portions wnl, limited by overlying midline bowel gas Liver: wnl Gallbladder: surgically absent Evidence for sonographic Valadez's sign: no CBD: visualized portions wnl, limited by overlying bowel gas Right Kidney: 0.5cm echogenic focus inferior pole IMPRESSION: The gallbladder surgically absent. Nonobstructing right renal calculus.
--- NOTE | 2021-12-11 17:43 | ECHOF ---
Referral Reason:Rule out heart disease MEASUREMENTS -------- HEIGHT: 162.6 cm WEIGHT: 90.7 kg BP: IVSd: 1.0 cm (0.6 - 1.1) LVIDd: 4.2 cm (3.9 - 5.3) LVPWd: 1.4 cm (0.6 - 1.1) IVSs: 1.2 cm LVIDs: 3.4 cm LVPWs: 1.2 cm LA Diam: 3.5 cm (2.7 - 3.8) Ao Diam: 3.1 cm (2.0 - 3.7) AV Cusp: 2.0 cm (1.5 - 2.6) LA Diam: 3.7 cm (2.7 - 3.8) MV EXCURSION: 19.027 mm (> 18.000) MV EF SLOPE: 147 mm/s (70 - 150) EPSS: 0.1 cm MV E Dre: 0.87 m/s MV DecT: 137 ms MV A Dre: 0.77 m/s MV E/A Ratio: 1.13 RAP: 5.00 mmHg RVSP: 28.79 mmHg FINDINGS -------- Sinus rhythm. This was a technically good study. LV size, wall thickness and systolic function are normal, with an EF greater than 55%. The left evan tricular size is normal. The right ventricle is normal in size. The left atrial size is normal. The right atrial size is normal. The aortic valve is trileaflet, and appears structurally normal. No aortic stenosis or regurgitation. The mitral valve is normal. Mild mitral regurgitation is present. The tricuspid valve appears structurally normal. Mild tricuspid regurgitation present. Right vent ricular systolic pressure is normal at < 35 mmHg. There is no pulmonic regurgitation present. The aortic root size is normal. There is no pericardial effusion. CONCLUSIONS -------- 1. LV size, wall thickness and systolic function are normal, with an EF greater than 55%. 2. The left atrial size is normal. 3. The aortic valve is trileaflet, and appears structurally normal. No aortic stenosis or regurgitati on. 4. Mild mitral regurgitation is present. 5. Mild tricuspid regurgitation present. 6. There is no pericardial effusion. [employer]SEMBLER: Coni Goff RDCS
--- NOTE | 2021-12-11 17:59 | MR ---
MR brain without contrast HISTORY: Right-sided weakness and numbness, question cerebrovascular accident, acute neuro deficit Correlation to CT brain 12/11/2021 Multiplanar multisequence imaging obtained through the brain without contrast There is no restricted diffusion. There is no hemorrhage or hydrocephalus. Partially empty sella is p resent. Corpus callosum, cervical medullary junction, cerebellopontine angles are unremarkable. There are expected vascular flow voids. Inflammatory changes present in the left maxillary sinus likely mu cus retention cyst, ethmoid air cells. There is some scattered hyperintensities within the subcortica l white matter as well as anterior limb of the internal capsule on the right, 5-10 lesions are presen t. Focus of subcortical hyperintensity in the posterior right parietal lobe measures approximately 15 mm in AP dimension by 9 mm in transverse dimension, intermediate on T1-weighted images, nonspecific. Orbits show symmetric appearance. IMPRESSION: Nonspecific white matter demyelination, consider multiple sclerosis, vasculitis, Lyme dis ease, hypertension and migraine headaches.. Sinus disease. No evident subacute ischemia.
--- NOTE | 2021-12-11 20:44 | P.CNNES ---
History of Present Illness Consult date: 12/11/21 Requesting physician: Drew Whitaker Reason for Consult: Ataxia History of Present Illness: Patient is a 46-year-old female, who claims that she had history of 6 TIA in 1 stroke which was about 10 years ago. She currently does not take any antiplatelet medication. Patient came to the hospital today at 11:57 AM, because she started having new onset intermittent stuttering, blurred vision, hands were shaking. She couldn't walk right, having spasms of muscles of the neck. The symptoms started at around 10 AM when she was getting ready to start the day. She also notices blood pressure was running around 200s and she could not get her blood pressure down. Vital signs arrival blood pressure 136/96, pulse [address] head showed no acute intracranial process. CTA revealed no definite acute arterial abnormality, significant stenosis or occlusion seen in the neck or the intracranial arteries. Questionable filling defect within the most superior aspect of the right internal jugular vein which could be artifactual due to the arterial scanning however a subtle nonocclusive thrombus cannot be excluded, please correlate clinically. Further jugular venous Doppler assessment can be considered. EKG shows normal sinus rhythm. Carotid Doppler pending. CBC, PT/PTT normal, Chem-20 normal. Urine drug screen positive for tricyclics, benzodiazepine and marijuana. Blood alcohol level negative. Stroke code was activated in the ER. ED staff discuss case with , and she was not considered a case for TPA because of low NIH stroke scale of 2. Patient was given loading dose of Brilinta and aspirin. Her current medications include pregabalin 150 mg at bedtime, lisinopril 10 mg, Trileptal 900 mg twice a day, Protonix 40 mg twice a day, Septra seen, clonidine 0.1 mg daily at bedtime and Paxil 30 mg at bedtime. Patient states she has history of 7 TIAs, one of them was a stroke, which occurred 10 years ago. Her symptoms of stroke consisted of "face melting" pointing to the left side, left side was weak and she was hospitalized for a week, which she does not remember if it was [facility] or [facility]. She states the symptoms lasted for a year. As a result of her stroke, she cannot run, with some difficulty with sensitivity of the left cheek. Sometimes she has difficulty with the vision. Patient says she has history of anxiety disorder, PTSD and bipolar disorder. Patient states that she does have anxiety, but her anxiety has never has made talk like this. Patient says that she had a surgery one time, when she "". She was on ventilator and her gallbladder was taken out. She lost a lot of blood and platelets. Patient denies any tobacco use, alcohol no drugs. She does not drink excessive caffeine or pops. She does smoke marijuana every day, about 1 g per day. She has hypertension but no diabetes. At present patient continues to stutter at times. Review of Systems As mentioned above in HPI. All other 14 point of review systems reviewed unremarkable. No chest pain or abdominal pain nausea vomiting diarrhea. 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"; History of Any Multi-Drug Resistant Organisms: C-DIFF Date of last positivie culture/infection: 2003 MDRO Source:: bowel Past Surgical History: Section, Cholecystectomy, Hysterectomy Additional Past Surgical History / Comment(s): hysterectomy, oophorectomy and salpingectomy; patient states she "coded and " from cholecystectomy complications during surgery; section x2; Past Anesthesia/Blood Transfusion Reactions: No Reported Reaction Past Psychological History: Anxiety, Bipolar, Depression, Panic Disorder, PTSD Smoking Status: Never smoker, Second hand smoke exposure Past Alcohol Use History: None Reported Past Drug Use History: Marijuana - Past Family History Father Family Medical History: Cancer, Coronary Artery Disease (CAD) Additional Family Medical History / Comment(s): neck cancer; Mother Family Medical History: Hypertension Additional Family Medical History / Comment(s): mental illness Brother(s) Family Medical History: Cancer Additional Family Medical History / Comment(s): neck cancer Medications and Allergies Home Medications Medication Instructions Recorded Confirmed Type Lisinopril [Zestril] 10 mg PO QAM 04/25/20 12/11/21 History OXcarbazepine [Trileptal] 900 mg PO BID 04/25/20 12/11/21 History Pantoprazole Sodium [Protonix] 40 mg PO BID 04/25/20 12/11/21 History Pregabalin [Lyrica] 150 mg PO HS 04/25/20 12/11/21 History Cetirizine HCl 10 mg PO DAILY PRN 03/19/21 12/11/21 History Cholecalciferol [Vitamin D3 (25 25 mcg PO DAILY 03/19/21 12/11/21 History Mcg = 1000 Iu)] cloNIDine HCL [Catapres] 0.1 mg PO HS 09/24/21 12/11/21 History Ibandronate Sodium [Boniva] 150 mg PO QMONTHLY 12/11/21 12/11/21 History PARoxetine HCL [Paxil] 30 mg PO HS 12/11/21 12/11/21 History Allergies Allergy/AdvReac Type Severity Reaction Status Date / Time latex Allergy Anaphylaxis Verified 12/11/21 13:43 Physical Examination - Vital Signs Vital Signs: Vital Signs Temp Pulse Resp BP Pulse Ox 12/11/21 14:30 85 18 146/92 96 12/11/21 12:28 98.8 F 96 18 144/107 99 12/11/21 12:20 98.8 F 97 18 142/97 98 12/11/21 12:07 98.8 F 98 18 136/96 98 Intake and Output 12/11/21 12/11/21 12/11/21 06:59 14:59 22:59 Other: Weight 85.275 kg Patient is a middle aged female, very pleasant, in no acute distress. Patient is alert awake oriented to time place and person. Speech has no aphasia or dysarthria. She frequently stutters. Her language functions are normal. Patient can name and repeat very well. Attention, concentration and fund of knowledge is adequate. On cranial examination, pupils are round and reacting to light, visual mustafa are full on confrontation, with no neglect on double simultaneous stimulation. extraocular muscles are intact with no nystagmus. Face is symmetric, tongue protrudes to the midline. Palatal elevation and sensation normal, hearing and shoulder shrug normal, facial sensation decreased on the right. Shoulder shrug normal. On muscle strength testing, patient has right-sided drift but no pronation. The strength is diffusely 5-on the right side of the body, normal on the left. Patient has inconsistent response, and decreased effort it appears. This was very well noticed in the deltoid testing, when it was felt that she was not giving the full effort for deltoid (shoulder abduction), as shoulder adductors were also active. Deep tendon reflexes are quite brisk, 2+ to 3 bilaterally, and plantars downgoing. No clonus. Sensory to touch is decreased involving entire right side of the body including face. Temperature also decreased on the right. At times she would not feel any sensation on the right side, which appears functional pattern. Cerebellar function showed no ataxia for [id number] testing. No dysdiadochokinesia. Tone and bulk of muscles normal. Gait deferred. On general examination, there is no carotid bruit or murmur, S1-S2 audible. Abdomen is soft nontender. No organomegaly, bowel sounds present. Chest is clear. Peripheral pulses are present. No edema. Results - Laboratory Findings CBC and BMP: 12/11/21 12:29 12/11/21 12:29 Abnormal Lab Findings: Abnormal Labs 12/11/21 12/11/21 12: 13:18 Sodium 132 L Glucose 105 H Alkaline Phosphatase 167 H U Tricyclic Antidepress Detected H U Benzodiazepines Scrn Detected H U Marijuana (THC) Screen Detected H Assessment and Plan Assessment: * Right-sided numbness, weakness and stuttering, appears functional pattern. Rule out conversion disorder. * Self-reported history of multiple TIAs (x7) and a stroke. * Hypertension * Anxiety disorder, PTSD and bipolar disorder. Plan: * Patient was not taking any antiplatelet medication, despite having "total 7 TIAs and a stroke". Patient apparently was loaded with Brilinta 180 mg and aspirin 325 mg in the ER. No indication for dual antiplatelet medication. Will continue single antiplatelet agent aspirin 81 mg daily. * Patient will undergo MRI of the brain rule out CVA. * Carotid Doppler revealed no evidence of hemodynamically significant stenosis. Antegrade flow in both vertebral arteries. * Optimize control of blood pressure. * Hemoglobin A1c 5.5, TSH 0.536 * Agree with checking lipid panel, B12, folate, * Dr. Clyde Heart Will resume neurology service in the morning.
[2021-12-11] MEDS ORDERED: PARoxetine 10 MG TAB PO SCH (21:00)
[2021-12-11] MEDS ORDERED: PREGABALIN 75 MG CAP PO SCH (21:00)
[2021-12-11] MEDS ORDERED: cloNIDine HCL 0.1 MG TAB PO SCH (21:00)
[2021-12-11] MEDS: OXcarbazepine 300 MG TAB PO SCH (21:25)
[2021-12-11] MEDS: PANTOPRAZOLE 40 MG TABLET PO SCH (21:32)
[2021-12-11] MEDS ORDERED: MELATONIN 5 MG TABLET PO SCH (23:00)
[2021-12-12] MEDS: ACETAMINOPHEN TAB 325 MG TAB PO PRN ×2 (00:10→14:48)
[2021-12-12] MEDS: SODIUM CHLORIDE 0.9% 1,000 ML IV SCH ×2 (00:21→14:31)
[2021-12-12 01:43] VITALS: RESP 16
[2021-12-12] MEDS: PANTOPRAZOLE 40 MG TABLET PO SCH (07:01)
[2021-12-12] MEDS ORDERED: ASPIRIN 81 MG PO SCH (09:00)
[2021-12-12] MEDS ORDERED: CHOLECALCIFEROL 25 MCG (1000 IU) TABLET PO SCH (09:00)
[2021-12-12] MEDS ORDERED: ASPIRIN 325 MG TAB PO SCH (09:00)
[2021-12-12] MEDS ORDERED: lisinopriL 10 MG TAB PO SCH (09:00)
[2021-12-12] MEDS ORDERED: FOLIC ACID 1 MG TAB PO SCH (09:00)
[2021-12-12 09:13] LABS: African American GFR (CKD) >90 (>60 ml/min/1.73 sqM); Anion Gap 6 mmol/L; Blood Urea Nitrogen 7 mg/dL (7-17); Calcium 8.6 mg/dL (8.4-10.2); Carbon Dioxide 25 mmol/L (22-30); Chloride 102 mmol/L (98-107); Glucose 99 mg/dL (74-99); Non-African American GFR(CKD) >90 (>60 ml/min/1.73 sqM); Potassium 4.3 mmol/L (3.5-5.1); Sodium 133 mmol/L (137-145)
[2021-12-12] MEDS: OXcarbazepine 300 MG TAB PO SCH (09:16)
[2021-12-12] MEDS ORDERED: CYANOCOBALAMIN 500 MCG TAB PO SCH (09:30)
[2021-12-12] MEDS ORDERED: CYANOCOBALAMIN 1,000 MCG/ML 1 ML VIAL IM ONE (09:30)
--- NOTE | 2021-12-12 10:31 | P.PN ---
Subjective Progress Note Date: 12/12/21 I am seeing the patient for the first time during this admission. Please refer to Dr. Bonner's note for further details. Currently the patient feels she is doing better. She feels she has numbness over the right lower extremity. She denies of any new neurological problems. Objective - Vital Signs Vital signs: Vital Signs Temp 97.9 F 12/12/21 09:12 Pulse 58 L 12/12/21 09:12 Resp 16 12/12/21 09:12 BP 146/93 12/12/21 09:12 Pulse Ox 100 12/12/21 09:12 Intake & Output 12/11/21 12/12/21 12/12/21 18:59 06:59 18:59 Weight 85.275 kg Other: # Voids 2 - Exam GENERAL: The patient is sitting up in bed and is not in acute distress. NEUROLOGICAL: Higher mental function: The patient is awake, alert, oriented to self, place. She correctly stated the year but for the month she stated it was December. She correctly names objects (pen and watch). Patient is following simple commands. No aphasia and no neglect. She has inconsistent stuttering. Cranial nerves: The pupils are round, equal and reactive to light. Visual mustafa are full to confrontation throughout. Extraocular movement is intact no nystagmus is noted. Facial sensation is normal to touch throughout. The facial strength is normal throughout. Tongue is midline and moved [id number] without any difficulty. No dysarthria is noted. Motor: The strength is right upper extremity is 4+ to 5- but seems inconsistent on testing. Otherwise 5 over 5 throughout. Normal tone and bulk. Cerebellum: Normal finger to nose bilaterally. Sensation: Sensation is slightly decreased over the right proximal lower extremity but is inconsistent. Otherwise rest is normal to touch. Reflexes (right/left): 2+ throughout. WORK-UP: MR the brain is reported as nonspecific white matter demyelination. Consider multiple sclerosis, vasculitis, Lyme disease, hypertension and migraine headache. Sinus disease. No evidence of subacute ischemia. I personally reviewed the MRI and there is no acute or subacute ischemia. The patient has nonspecific white matter. Carotid duplex is reported as no evidence for hemodynamically significant stenosis 2-D echo was reported as left ventricular size, wall thickness and systolic function are normal, with ejection fraction greater than 55%. The left atrium size is normal. Vitamin B12 is 253 which is a considered very low normal and the normal supposed to be between 200-944. Folate level is 8.80. TSH is 0.536. Hemoglobin A1c is 5.5. Urine drug screen is positive for tricyclic, benzodiazepine, marijuana. Serum alcohol was less than 10. - Labs CBC & Chem 7: 12/11/21 12:29 12/12/21 08:36 Labs: Abnormal Lab Results - Last 24 Hours (Table) 12/11/21 12/11/21 12/12/21 Range/Units 12:29 13:18 08:36 Sodium 132 L 133 L (137-145) mmol/L Glucose 105 H (74-99) mg/dL Alkaline Phosphatase 167 H (38-126) U/L U Tricyclic Antidepress Detected H (NotDetected) U Benzodiazepines Scrn Detected H (NotDetected) U Marijuana (THC) Screen Detected H (NotDetected) Assessment and Plan Assessment: * Right-sided numbness, weakness and stuttering, appears functional pattern (on examination her stuttering and strength is inconsistent). Rule out conversion disorder. MRI Brain is negative for stroke. 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 * Hypertension * Anxiety disorder, PTSD and bipolar disorder. Plan: MR the brain is reported as nonspecific white matter demyelination. Consider multiple sclerosis, vasculitis, Lyme disease, hypertension and migraine headache. Sinus disease. No evidence of subacute ischemia. I personally reviewed the MRI and there is no acute or subacute ischemia. The patient has no nspecific white matter. I recommend MRI of the cervical spine and consider back imaging for her comp laints of weakness over the right side and rule out demylinating disease. Also consider lumbar puncture to rule out any D monitoring disease. But the patient does not want as an inpatient and rather once it as an outpatient. Vitamin B12 is 253 which is a considered very low normal and the normal supposed to be between 200-944. I cannot use intramuscular vitamin B12 since the patient is ALLERGIC to latex per pharmacy therefore patient was started on thousand micrograms daily by mouth. Also started the patient on folic acid 1 mg daily. No indication for dual antiplatelet medication. Will continue single antiplatelet agent aspirin 81 mg daily. Patient stuttering is inconsistent and is seems more functional. PT and OT and AOC DIRECTOR COMBAT OPERATIONS OFFICER are consulted We'll defer the rest of the medical management to primary team Patient is to follow up with a neurologist as an outpatient within the 1-2 weeks Recommend the patient to follow up with the psychiatry team as an outpatient. There is no further neurological workup and patient is clear from neurology perspective. The plan was discussed with the patient's nurse. Clyde Heart M.D. Neuro-hospitalist Time with Patient: Less than 30
[2021-12-12 13:16] VITALS: BP 150/98; PULSE 70; TEMP 97.3
[2021-12-12 14:10] LABS: Chol/HDL Ratio 4.17 Ratio; LDL Cholesterol,Calculated 106.5 mg/dL (0.0-131.0)
[2021-12-13] MEDS ORDERED: CYANOCOBALAMIN 500 MCG TAB PO SCH (09:00)
== END 2021-12-12 15:39 | disposition home or self-care (01) | DRG 93 ==
LOC: EC 11:57 → 3SCARD 13:31
PROVIDERS: ADMIT Internal Medicine; ATTEND Internal Medicine
DX: R27.0 Ataxia, unspecified (principal); R90.82 White matter disease, unspecified; R10.9 Unspecified abdominal pain; I08.1 Rheumatic disorders of both mitral and tricuspid valves; F98.5 Adult onset fluency disorder; M62.838 Other muscle spasm; R20.2 Paresthesia of skin; F31.9 Bipolar disorder, unspecified; F41.0 Panic disorder [episodic paroxysmal anxiety]; F43.10 Post-traumatic stress disorder, unspecified; H53.2 Diplopia; I10 Essential (primary) hypertension; Z79.899 Other long term (current) drug therapy; Z80.8 Family history of malignant neoplasm of other organs or systems; Z82.49 Family history of ischemic heart disease and other diseases of the circulatory system; Z86.73 Personal history of transient ischemic attack (TIA), and cerebral infarction without residual deficits; Z90.49 Acquired absence of other specified parts of digestive tract; Z90.710 Acquired absence of both cervix and uterus; Z91.040 Latex allergy status
CPT/HCPCS: 36415; 70450; 70496; 70498; 70551; 76705; 80048; 80053; 80061; 80306; 80320; 82607; 82746; 83036; 84443; 84484; 85025; 85610; 85730; 93005; 93306; 93880; 94760; 99291

== ENCOUNTER 2022-01-28 18:10 | Emergency (ER) | payer MEDICARE, OTHER ==
[2022-01-28 18:50] VITALS: BP 138/94; PULSE 115; RESP 18; TEMP 97.9
[2022-01-28] MEDS ORDERED: LIDOCAINE 1%-EPI 1:100,000 20 ML VIAL SQ STA (19:19)
--- NOTE | 2022-01-28 19:48 | ED ---
General Adult HPI - General Chief complaint: Urogenital Stated complaint: Boil, Female Time Seen by Provider: 01/28/22 19:11 Source: patient Mode of arrival: ambulatory Limitations: no limitations - History of Present Illness Initial comments: This is a pleasant 46-year-old female with a history of TIA, consider C. difficile colitis, section, and previous hemorrhage which required evacuation. Patient presents today complaining of hemorrhoid which isn't bothering her for the past few days. Patient states that touching the area or any sitting exacerbates the pain. She denies feeling ill otherwise. No headache, no fever or chills, no changes in vision or hearing, no sore throat or difficulty with speech, no neck pain, no chest pain or shortness of breath, no abdominal pain, no nausea or vomiting, no changes in urination or bowel movements, no numbness or tingling, no extremity pain, no skin rashes or lesion s. - Related Data Home Medications Medication Instructions Recorded Confirmed Lisinopril [Zestril] 10 mg PO QAM 04/25/20 12/11/21 OXcarbazepine [Trileptal] 900 mg PO BID 04/25/20 12/11/21 Pantoprazole Sodium [Protonix] 40 mg PO BID 04/25/20 12/11/21 Pregabalin [Lyrica] 150 mg PO HS 04/25/20 12/11/21 Cetirizine HCl 10 mg PO DAILY PRN 03/19/21 12/11/21 Cholecalciferol [Vitamin D3 (25 25 mcg PO DAILY 03/19/21 12/11/21 Mcg = 1000 Iu)] cloNIDine HCL [Catapres] 0.1 mg PO HS 09/24/21 12/11/21 Ibandronate Sodium [Boniva] 150 mg PO QMONTHLY 12/11/21 12/11/21 PARoxetine HCL [Paxil] 30 mg PO HS 12/11/21 12/11/21 Previous Rx's Medication Instructions Recorded Cyanocobalamin [Vitamin B-12] 1,000 mcg PO DAILY #30 tab 12/12/21 Folic Acid 1 mg PO DAILY #30 tab 12/12/21 Allergies Allergy/AdvReac Type Severity Reaction Status Date / Time latex Allergy Anaphylaxis Verified 01/28/22 18:50 Review of Systems ROS Statement: Those systems with pertinent positive or pertinent negative responses have been documented in the HPI. ROS Other: All systems not noted in ROS Statement are negative. 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"; History of Any Multi-Drug Resistant Organisms: C-DIFF Date of last positivie culture/infection: 2003 MDRO Source:: bowel Past Surgical History: Section, Cholecystectomy, Hysterectomy Additional Past Surgical History / Comment(s): hysterectomy, oophorectomy and salpingectomy; patient states she "coded and " from cholecystectomy complications during surgery; section x2; Past Anesthesia/Blood Transfusion Reactions: No Reported Reaction Past Psychological History: Anxiety, Bipolar, Depression, Panic Disorder, PTSD Smoking Status: Never smoker, Second hand smoke exposure Past Alcohol Use History: None Reported Past Drug Use History: Marijuana - Past Family History Father Family Medical History: Cancer, Coronary Artery Disease (CAD) Additional Family Medical History / Comment(s): neck cancer; Mother Family Medical History: Hypertension Additional Family Medical History / Comment(s): mental illness Brother(s) Family Medical History: Cancer Additional Family Medical History / Comment(s): neck cancer General Exam - General Exam Comments Initial Comments: Patient in distress secondary to painful hemorrhoid. Patient reluctant to sit in the room. Limitations: no limitations General appearance: alert, in distress Head exam: Present: atraumatic, normocephalic, normal inspection Eye exam: Present: normal appearance, PERRL, EOMI. Absent: scleral icterus, conjunctival injection, periorbital swelling ENT exam: Present: normal exam, mucous membranes moist Neck exam: Present: normal inspection, full ROM. Absent: tenderness, meningismus, lymphadenopathy Respiratory exam: Present: normal lung sounds bilaterally, chest wall tenderness. Absent: respiratory distress, wheezes, rales, rhonchi, stridor, accessory muscle use Cardiovascular Exam: Present: regular rate, normal rhythm, normal heart sounds. Absent: systolic murmur, diastolic murmur, rubs, gallop, clicks GI/Abdominal exam: Present: soft, normal bowel sounds. Absent: distended, tenderness, guarding, rebound, rigid Rectal exam: Present: normal rectal tone, hemorrhoids, tenderness, other (Patient has a thrombosed external hemorrhoid which is tender. No surrounding inflammation or evidence of infection. Patient has a smaller hemorrhoid which is not thrombosed. Exam was chaperoned by female RN). Absent: decreased rectal tone, black stool, bloody stool, fecal impaction, mass Extremities exam: Present: normal inspection, full ROM, normal capillary refill. Absent: tenderness, pedal edema, joint swelling, calf tenderness Back exam: Present: normal inspection Neurological exam: Present: alert, oriented X3, CN II-XII intact Psychiatric exam: Present: normal affect, normal mood Skin exam: Present: warm, dry, intact, normal color. Absent: rash Course Vital Signs 01/28/22 18:48 Temperature 97.9 F Pulse Rate 115 H Respiratory 18 Rate Blood Pressure 138/94 O2 Sat by Pulse 97 Oximetry Procedures - Procedures Initial comment: 7:35 PMPatient was prepped and draped in sterile fashion. Timeout was signed, consent was signed. Area prepped with Betadine. Can with epinephrine is used to anesthetize the external hemorrhoid. 1 mL was used. A 15 blade scalpel was used to incise the area. A 2 cm incision was made. Clot was evacuated. Patient tolerated well. Minimal bleeding. Disposition Clinical Impression: Thrombosed external hemorrhoid Disposition: HOME SELF-CARE Instructions (If sedation given, give patient instructions): Hemorrhoids (ED) Additional Instructions: No headache, no fever or chills, no changes in vision or hearing, no sore throat or difficulty with speech, no neck pain, no chest pain or shortness of breath, no abdominal pain, no nausea or vomiting, no changes in urination or bowel movements, no numbness or tingling, no extremity pain, no skin rashes or lesions. Is patient prescribed a controlled substance at d/c from ED?: No [facility] [[facility] Care Provider] - 1-2 days Lesvia Atkins MD [STAFF PHYSICIAN] - 02/02/22 Time of Disposition: 19:47
== END 2022-01-28 19:59 | disposition home or self-care (01) ==
LOC: EC 18:10
DX: K64.5 Perianal venous thrombosis (principal); F31.9 Bipolar disorder, unspecified; F41.9 Anxiety disorder, unspecified; F12.90 Cannabis use, unspecified, uncomplicated; Z77.22 Contact with and (suspected) exposure to environmental tobacco smoke (acute) (chronic); Z79.899 Other long term (current) drug therapy
CPT/HCPCS: 46083; 99282

== ENCOUNTER 2022-02-07 07:50 | Emergency (ER) | payer MEDICARE, OTHER ==
[2022-02-07 07:56] VITALS: RESP 18; TEMP 97.8
[2022-02-07] MEDS ORDERED: LIDOCAINE 2% GEL 30 ML TUBE TOPICAL ONE (10:30)
[2022-02-07] MEDS ORDERED: MORPHINE SULFATE 4 MG/ML SYRINGE IVP STA (10:30)
[2022-02-07] MEDS ORDERED: ONDANSETRON 4 MG/2 ML VIAL IVP STA (10:46)
--- NOTE | 2022-02-07 11:16 | ED ---
General Adult HPI - General Chief complaint: Recheck/Abnormal Lab/Rx Stated complaint: hemorrhoid-revisit Time Seen by Provider: 02/07/22 10:13 Source: patient Mode of arrival: ambulatory Limitations: no limitations - History of Present Illness Initial comments: Patient is a 46-year-old female who presents to the emergency department with a chief complaint of severe left hip pain. Patient states the pain started this morning and radiates down the left thigh to her knee and to the lower back. She states she feels aching in her bones. Patient states she has history of right- sided sciatica as well as kidney stone and that this does not feel similar. The pain started abruptly and is constant. Patient denies injury. She denies numbness and tingling in the groin area also of urinary/bowel control. Patient also reports nausea. No vomiting. She has no history of cancer however states she has benign masses in her breasts that are being monitored. No recent weight loss. No IV drug use. Patient states she has a very painful hemorrhoid refrac tory to sitz baths and Preparation H. Patient states she has a surgical consult for the hemorrhoid and a couple weeks. Patient has no other concerns at this time including fever, chills, shortness of breath, chest pain, abdominal pain, diarrhea, burning with urination, and leg swelling. - Related Data Home Medications Medication Instructions Recorded Confirmed Lisinopril [Zestril] 10 mg PO QAM 04/25/20 12/11/21 OXcarbazepine [Trileptal] 900 mg PO BID 04/25/20 12/11/21 Pantoprazole Sodium [Protonix] 40 mg PO BID 04/25/20 12/11/21 Pregabalin [Lyrica] 150 mg PO HS 04/25/20 12/11/21 Cetirizine HCl 10 mg PO DAILY PRN 03/19/21 12/11/21 Cholecalciferol [Vitamin D3 (25 25 mcg PO DAILY 03/19/21 12/11/21 Mcg = 1000 Iu)] cloNIDine HCL [Catapres] 0.1 mg PO HS 09/24/21 12/11/21 Ibandronate Sodium [Boniva] 150 mg PO QMONTHLY 12/11/21 12/11/21 PARoxetine HCL [Paxil] 30 mg PO HS 12/11/21 12/11/21 Previous Rx's Medication Instructions Recorded Cyanocobalamin [Vitamin B-12] 1,000 mcg PO DAILY #30 tab 12/12/21 Folic Acid 1 mg PO DAILY #30 tab 12/12/21 Baclofen 10 mg PO TID #15 tab 02/07/22 Allergies Allergy/AdvReac Type Severity Reaction Status Date / Time latex Allergy Anaphylaxis Verified 02/07/22 07:56 Review of Systems ROS Statement: Those systems with pertinent positive or pertinent negative responses have been documented in the HPI. ROS Other: All systems not noted in ROS Statement are negative. 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"; History of Any Multi-Drug Resistant Organisms: C-DIFF Date of last positivie culture/infection: 2003 MDRO Source:: bowel Past Surgical History: Section, Cholecystectomy, Hysterectomy Additional Past Surgical History / Comment(s): hysterectomy, oophorectomy and salpingectomy; patient states she "coded and " from cholecystectomy complications during surgery; section x2; Past Anesthesia/Blood Transfusion Reactions: No Reported Reaction Past Psychological History: Anxiety, Bipolar, Depression, Panic Disorder, PTSD Smoking Status: Never smoker, Second hand smoke exposure Past Alcohol Use History: None Reported Past Drug Use History: Marijuana - Past Family History Father Family Medical History: Cancer, Coronary Artery Disease (CAD) Additional Family Medical History / Comment(s): neck cancer; Mother Family Medical History: Hypertension Additional Family Medical History / Comment(s): mental illness Brother(s) Family Medical History: Cancer Additional Family Medical History / Comment(s): neck cancer General Exam Limitations: no limitations General appearance: alert, in distress (Due to pain) Head exam: Present: atraumatic, normocephalic, normal inspection Eye exam: Present: normal appearance, PERRL, EOMI. Absent: scleral icterus, conjunctival injection, periorbital swelling Neck exam: Present: normal inspection Respiratory exam: Present: normal lung sounds bilaterally. Absent: respiratory distress, wheezes, rales, rhonchi, stridor Cardiovascular Exam: Present: regular rate, normal rhythm, normal heart sounds. Absent: systolic murmur, diastolic murmur, rubs, gallop, clicks GI/Abdominal exam: Present: soft, normal bowel sounds. Absent: distended, tenderness, guarding, rebound, rigid Rectal exam: Present: hemorrhoids (Patient has 2 external hemorrhoids that are normal in skin color with no thrombosis) Extremities exam: Present: normal inspection, full ROM. Absent: tenderness Right Neurovascular tendon exam: Present: no vascular compromise. Absent: pulse deficit, abnormal cap refill, motor deficit, sensory deficit, extremity cold to touch, pallor, foot drop Left Hip exam: Present: normal inspection, full ROM, pelvic stability. Absent: tenderness, swelling, abrasion, dislocation, erythema, external rotation, internal rotation, shortening Upper Leg exam: Present: normal inspection, full ROM. Absent: tenderness, swelling, abrasion, ecchymosis, deformity, erythema Back exam: Present: normal inspection, full ROM. Absent: tenderness, CVA tenderness (R), CVA tenderness (L) Neurological exam: Present: alert, oriented X3, CN II-XII intact Psychiatric exam: Present: normal affect, anxious Skin exam: Present: warm, dry, intact, normal color. Absent: rash Course Vital Signs 02/07/22 02/07/22 02/07/22 07:52 12:15 13:30 Temperature 97.8 F Pulse Rate 95 77 81 Respiratory 18 18 18 Rate Blood Pressure 141/100 160/107 144/121 O2 Sat by Pulse 98 98 98 Oximetry 02/07/22 14:08 Temperature Pulse Rate 88 Respiratory 18 Rate Blood Pressure 147/94 O2 Sat by Pulse 98 Oximetry Medical Decision Making - Medical Decision Making This is a 46-year-old female who presents with severe left hip pain and refractory hemorrhoid pain. Thorough history and examination were performed. Patient is very anxious during my exam due to pain. She has trouble staying still in bed. Patient denies recent injury. No saddle anesthesia or loss of bladder/bowel control. No history of cancer, recent weight loss, or IV drug use. The lower back, left hip, left thigh, left knee are normal inspection with no pain during palpation. Patient has full range of motion. There are 2 external hemorrhoids visualized on rectal exam. They are consistent with patient's skin color, no evidence of thrombosis. Due to patient's clinical presentation of abrupt onset with severe pain, CT of the lumbar spine and pelvis was ordered. CT of the lumbar spine and left hip showed degenerative changes of the spine and mild osteoarthritic changes of the hip, not significantly changed from the contralateral side. Laboratory studies were obtained to rule out inflammatory process which were unremarkable. Pain was controlled with a dose of morphine and dilaudid. Patient given Zofran for nausea. Topical lidocaine was given for hemorrhoid pain. Patient had significant relief of pain. Patient remained hypertensive in the emergency department. She states she takes lisinopril as directed. Last dose was this morning. I give patient a small dose of hydralazine which her pressure responded to. Patient will be discharged with baclofen and instruction to follow up with the primary care provider for her pain and blood pressure management. She'll be sent home with lidocaine gel for her hemorrhoid. She verbalizes understanding and is agreeable to this plan. Dr. Biggs is my attending. - Lab Data Result diagrams: 02/07/22 11:08 02/07/22 11:08 Lab Results 02/07/22 02/07/22 02/07/22 Range/Units 11:08 11:08 11:08 WBC 5.6 (3.8-10.6) k/uL RBC 3.89 (3.80-5.40) m/uL Hgb 12.9 (11.4-16.0) gm/dL Hct 37.0 (34.0-46.0) % MCV 95.1 (80.0-100.0) fL MCH 33.2 (25.0-35.0) pg MCHC 34.9 (31.0-37.0) g/dL RDW 12.1 (11.5-15.5) % Plt Count 292 (150-450) k/uL MPV 7.0 Neutrophils % 62 % Lymphocytes % 22 % Monocytes % 8 % Eosinophils % 4 % Basophils % 1 % Neutrophils # 3.5 (1.3-7.7) k/uL Lymphocytes # 1.2 (1.0-4.8) k/uL Monocytes # 0.5 (0-1.0) k/uL Eosinophils # 0.2 (0-0.7) k/uL Basophils # 0.1 (0-0.2) k/uL Sodium 136 L (137-145) mmol/L Potassium 3.9 (3.5-5.1) mmol/L Chloride 104 (98-107) mmol/L Carbon Dioxide 23 (22-30) mmol/L Anion Gap 9 mmol/L BUN 13 (7-17) mg/dL Creatinine 0.71 (0.52-1.04) mg/dL Est GFR (CKD-EPI)AfAm >90 (>60 ml/min/1.73 sqM) Est GFR (CKD-EPI)NonAf >90 (>60 ml/min/1.73 sqM) Glucose 97 (74-99) mg/dL Calcium 8.9 (8.4-10.2) mg/dL Total Bilirubin 0.4 (0.2-1.3) mg/dL AST 19 (14-36) U/L ALT 12 (4-34) U/L Alkaline Phosphatase 106 (38-126) U/L Total Protein 7.5 (6.3-8.2) g/dL Albumin 4.2 (3.5-5.0) g/dL Lipase 118 (23-300) U/L Urine Color Yellow Urine Appearance Cloudy H (Clear) Urine pH 6.0 (5.0-8.0) Ur Specific [place] 1.038 H (1.001-1.035) Urine Protein 1+ H (Negative) Urine Glucose (UA) Negative (Negative) Urine Ketones Negative (Negative) Urine Blood Negative (Negative) Urine Nitrite Negative (Negative) Urine Bilirubin Negative (Negative) Urine Urobilinogen 3.0 (<2.0) mg/dL Ur Leukocyte Esterase Negative (Negative) Urine RBC 3 (0-5) /hpf Urine WBC 2 (0-5) /hpf Ur Squamous Epith Cells 1 (0-4) /hpf Calcium Oxalate Crystal Few H (None) /hpf Urine Mucus Many H (None) /hpf Disposition Clinical Impression: Left hip pain, External hemorrhoid Disposition: HOME SELF-CARE Condition: Good Additional Instructions: Please take medication as directed. Do not drink alcohol or operate machinery while taking baclofen. Follow-up with primary care provider for your back and hip pain. You should also follow-up for better management of your blood pressure. Return to the emergency department if you experience new, concerning, or worsening symptoms. Prescriptions: Baclofen 10 mg PO TID #15 tab Is patient prescribed a controlled substance at d/c from ED?: No Referrals: [facility] [Primary Care Provider] - 1-2 days Time of Disposition: 14:12
[2022-02-07 11:25] LABS: Basophils # (A) 0.1 k/uL (0-0.2); Basophils % (A) 1 %; Eosinophils # (A) 0.2 k/uL (0-0.7); Eosinophils % (A) 4 %; HGB 12.9 gm/dL (11.4-16.0); Lymphocytes # (A) 1.2 k/uL (1.0-4.8); Lymphocytes % (A) 22 %; MCH 33.2 pg (25.0-35.0); MCHC 34.9 g/dL (31.0-37.0); MCV 95.1 fL (80.0-100.0); Monocytes # (A) 0.5 k/uL (0-1.0); Monocytes % (A) 8 %; Neutrophils # (A) 3.5 k/uL (1.3-7.7); Neutrophils % (A) 62 %; Platelet Count 292 k/uL (150-450); RBC 3.89 m/uL (3.80-5.40); RDW 12.1 % (11.5-15.5); WBC 5.6 k/uL (3.8-10.6)
[2022-02-07 11:34] LABS: ALT 12 U/L (4-34); AST 19 U/L (14-36); African American GFR (CKD) >90 (>60 ml/min/1.73 sqM); Albumin 4.2 g/dL (3.5-5.0); Alkaline Phosphatase 106 U/L (38-126); Anion Gap 9 mmol/L; Blood Urea Nitrogen 13 mg/dL (7-17); Calcium 8.9 mg/dL (8.4-10.2); Carbon Dioxide 23 mmol/L (22-30); Chloride 104 mmol/L (98-107); Glucose 97 mg/dL (74-99); Lipase 118 U/L (23-300); Non-African American GFR(CKD) >90 (>60 ml/min/1.73 sqM); Potassium 3.9 mmol/L (3.5-5.1); Sodium 136 mmol/L (137-145); Total Bilirubin 0.4 mg/dL (0.2-1.3); Total Protein 7.5 g/dL (6.3-8.2)
[2022-02-07 11:57] LABS: Appearance,Urine Cloudy (Clear); Bilirubin,Urine Negative (Negative); Blood,Urine Negative (Negative); Calcium Oxalate Crystals,Urine Few /hpf; Color,Urine Yellow; Glucose,Urine (UA) Negative (Negative); Ketones,Urine Negative (Negative); Leukocyte Esterase,Urine Negative (Negative); Mucus,Urine Many /hpf; Nitrite,Urine Negative (Negative); Protein,Urine 1+ (Negative); RBC,Urine 3 /hpf (0-5); Specific Gravity,Urine 1.038 (1.001-1.035); Squamous Epithelial Cell,Urine 1 /hpf (0-4); WBC,Urine 2 /hpf (0-5)
[2022-02-07] MEDS ORDERED: HYDROmorphone 0.5 MG/0.5 ML SYRINGE IVP STA (12:01)
--- NOTE | 2022-02-07 12:34 | CT ---
EXAMINATION TYPE: CT pelvis wo con CT DLP: 248.6 mGycm, Automated exposure control for dose reduction was used. DATE OF EXAM: 02/07/2022 11:58 AM COMPARISON: CLINICAL INDICATION:Female, 46 years old with history of severe left hip pain; TECHNIQUE: Standard CT of the pelvis without IV or oral contrast. Lack of IV or oral contrast limits evaluation of solid and hollow organ viscera. Coronal and sagittal reformats were performed. Multiple axial images were obtained from the midportion of T11 through the sacroiliac joints. Soft t issue and bone windows in coronal and sagittal planes were obtained and reviewed. FINDINGS: Pelvis: Visualized portions of the bony pelvis exclude the superior acetabulum bilaterally. There is mild deg enerative changes in the visualized [id number]. No evidence of fracture. Left hip does demonstrate sclerotic focus likely representing bony island. Lumbar Spine: Alignment: There are 5 lumbar type vertebral bodies within normal alignment. Bone: Disc degeneration changes worse at L5-S1 with endplate sclerosis and vacuum disc phenomenon an d spurring. Discs: T12-L1: No spinal canal or neural foraminal stenosis is identified. L1-L2: No spinal canal or neural foraminal stenosis is identified. L2-L3: Disc bulging and facet joint arthropathy with mild spinal canal stenosis. The neural foramen a re patent. L3-L4: Disc bulging and facet joint arthropathy with mild spinal canal stenosis. The neural foramen a re patent. L4-L5: Disc bulging and facet joint arthropathy with mild spinal canal stenosis. The neural foramen are patent. L5-S1: Disc bulging and facet joint arthropathy result in mild spinal canal stenosis. The neural fora men are patent. Other: Nonobstructing right renal calculi measuring up to 4 mm. Additional renal cortical calculus me asuring up to 6 mm also present. IMPRESSION: 1. No evidence of fracture of the lumbar spine or evidence of significant spinal canal or neural fora georgi stenosis. 2. Mild osteoarthritic changes of the left hip not significantly changed from the contralateral side. The acetabulum was excluded from the [id number] bilaterally. 3. Degenerative spine worse at L5-S1 with endplate sclerosis and vacuum disc phenomenon along with sp urring. 4. Nonobstructing right renal calculi.
--- NOTE | 2022-02-07 12:51 | CT ---
EXAMINATION TYPE: CT lumbar spine wo con CT DLP: 936.9 mGycm, Automated exposure control for dose reduction was used. DATE OF EXAM: 02/07/2022 11:58 AM COMPARISON: CT pelvis same day.. CLINICAL INDICATION:Female, 46 years old with history of severe abrupt back pain , Serve abrupt back pain TECHNIQUE: Multiple axial images were obtained from the midportion of T11 through the sacroiliac hua nts. Soft tissue and bone windows in coronal and sagittal planes were obtained and reviewed. FINDINGS: Alignment: There are 5 lumbar type vertebral bodies within normal alignment. Bone: Disc degeneration changes worse at L5-S1 with endplate sclerosis and vacuum disc phenomenon an d spurring. Discs: T12-L1: No spinal canal or neural foraminal stenosis is identified. L1-L2: No spinal canal or neural foraminal stenosis is identified. L2-L3: Disc bulging and facet joint arthropathy with mild spinal canal stenosis. The neural foramen a re patent. L3-L4: Disc bulging and facet joint arthropathy with mild spinal canal stenosis. The neural foramen a re patent. L4-L5: Disc bulging and facet joint arthropathy with mild spinal canal stenosis. The neural foramen are patent. L5-S1: Disc bulging and facet joint arthropathy result in mild spinal canal stenosis. The neural fora men are patent. Other: Nonobstructing right renal calculi measuring up to 4 mm. Additional renal cortical calculus me asuring up to 6 mm also present. IMPRESSION: 1. No evidence of fracture of the lumbar spine or evidence of significant spinal canal or neural fora georgi stenosis. 2. Degenerative spine worse at L5-S1 with endplate sclerosis and vacuum disc phenomenon along with sp urring. 3. Nonobstructing right renal calculi.
[2022-02-07] MEDS ORDERED: hydrALAZINE HCL 20 MG/ML 1 ML VIAL IVP STA (13:22)
[2022-02-07] MEDS ORDERED: METOPROLOL TARTRATE 5 MG/5 ML VIAL IVP STA (13:56)
[2022-02-07] MEDS ORDERED: ACET/COD 300 MG/30 MG STARTER PACK 6 TAB BTL PO STA (14:08)
[2022-02-07 14:09] VITALS: BP 147/94; PULSE 88
[2022-02-07] MEDS ORDERED: HYDROcodone/APAP 7.5-325MG 1 EACH TAB PO ONE (14:39)
== END 2022-02-07 14:47 | disposition home or self-care (01) ==
LOC: EC 07:50
DX: K64.4 Residual hemorrhoidal skin tags (principal); M25.552 Pain in left hip; R11.0 Nausea; F31.9 Bipolar disorder, unspecified; F41.9 Anxiety disorder, unspecified; F12.90 Cannabis use, unspecified, uncomplicated; Z77.22 Contact with and (suspected) exposure to environmental tobacco smoke (acute) (chronic); Z79.899 Other long term (current) drug therapy
CPT/HCPCS: 36415; 80053; 83690; 85025; 81001; 72192; 72131; 99284; 96374; 96375 ×3; J2270; J0360; J2405; J1170

== ENCOUNTER → 2022-04-16 | Outpatient (CLI) | payer MEDICARE, OTHER ==
--- NOTE | 2022-04-16 17:25 | MR ---
EXAMINATION TYPE: MR brain wo/w con DATE OF EXAM: 04/16/2022 COMPARISON: 12/11/2021 HISTORY: Numbness, weakness, aphasia, TIA CONTRAST: Performed utilizing 8 mL intravenous Gadavist gadolinium contrast. TECHNIQUE: Multiplanar, multiecho imaging on a 3.0 Taty magnet is performed through the brain. Stud y is performed within 24 hours of arrival to the hospital. The craniovertebral junction is normal. The pituitary is normal. Optic chiasm is normal. Diffusion-weighted imaging is performed. No abnormal hyperintensity is present to suggest an acute i ntracranial infarct or acute ischemic change. There are a few small subcortical white matter changes in the centrum semiovale frontal lobes bilater ally. There is a larger subcortical white matter change in the posterior right occipital lobe. Findi ngs were present previously. Findings are nonspecific but could be related to microvascular ischemic change, migraine headaches, vasculitis, multiple sclerosis. Ventricles and sulci are appropriate for the patient age. IMPRESSIONS: 1. Scattered small subcortical white matter changes. Largest within the right posterior occipital lob e. Findings are stable from the comparison of November 2021
== END | disposition home or self-care (01) ==
LOC: RADMRIMAIN 10:24
PROVIDERS: ATTEND Family Medicine
DX: G93.89 Other specified disorders of brain (principal); R53.1 Weakness; R13.0 Aphagia
CPT/HCPCS: 70553; A9585

== ENCOUNTER 2022-04-21 10:41 | Emergency (ER) | payer MEDICARE, OTHER ==
[2022-04-21 10:49] VITALS: TEMP 98.4
[2022-04-21] MEDS ORDERED: PROCHLORPERAZINE INJ 10 MG/2 ML VIAL IVP STA (10:58)
[2022-04-21] MEDS ORDERED: KETOROLAC 15 MG/ML 1 ML VIAL IVP STA (10:58)
[2022-04-21] MEDS ORDERED: ACETAMINOPHEN TAB 325 MG TAB PO STA (10:58)
[2022-04-21] MEDS ORDERED: diphenhydrAMINE 50 MG/ML 1 ML VIAL IVP STA (10:58)
[2022-04-21] MEDS ORDERED: SODIUM CHLORIDE 0.9% 1,000 ML IV STA (10:58)
[2022-04-21 11:19] LABS: HCT 31.7 % (34.0-46.0); HGB 11.7 gm/dL (11.4-16.0); MCH 34.9 pg (25.0-35.0); MCV 94.3 fL (80.0-100.0); Mean Platelet Volume 6.8; Platelet Count 286 k/uL (150-450); RBC 3.36 m/uL (3.80-5.40); RDW 11.9 % (11.5-15.5); WBC 4.5 k/uL (3.8-10.6)
[2022-04-21 11:31] LABS: African American GFR (CKD) >90 (>60 ml/min/1.73 sqM); Anion Gap 8 mmol/L; Blood Urea Nitrogen 9 mg/dL (7-17); Calcium 8.4 mg/dL (8.4-10.2); Carbon Dioxide 23 mmol/L (22-30); Chloride 96 mmol/L (98-107); Glucose 91 mg/dL (74-99); Non-African American GFR(CKD) >90 (>60 ml/min/1.73 sqM); Potassium 4.3 mmol/L (3.5-5.1); Sodium 127 mmol/L (137-145)
[2022-04-21 11:36] LABS: HCG,Qualitative Serum Not Detected
--- NOTE | 2022-04-21 12:11 | ED ---
General Adult HPI - General Chief complaint: Headache Stated complaint: headache Time Seen by Provider: 04/21/22 10:46 Source: patient, EMS, RN notes reviewed, old records reviewed Mode of arrival: EMS Limitations: no limitations - History of Present Illness Initial comments: Patient is a 46-year-old female with past medical history remarkable for migra kimmy, TIAs who presents emergency Department complaining of waking up with a headache this morning. States it is not the worst headache of her life. Does have a history of migraines per descriptor current headache as a tension from the base of her neck/skull radiates up over the top of her head. States it is making her nauseous and causing her to throw up. It is similar somewhat to prior migraines. Denies any weakness, numbness. Denies any other acute complaints at this time. Presents for further evaluation and treatment. No history of brain aneurysms in herself or family members. - Related Data Home Medications Medication Instructions Recorded Confirmed OXcarbazepine [Trileptal] 900 mg PO BID 04/25/20 04/21/22 Pantoprazole Sodium [Protonix] 40 mg PO BID 04/25/20 04/21/22 Pregabalin [Lyrica] 150 mg PO HS 04/25/20 04/21/22 lisinopriL [Zestril] 10 mg PO DAILY 04/25/20 04/21/22 cloNIDine HCL [Catapres] 0.1 mg PO DAILY 09/24/21 04/21/22 Ibandronate Sodium [Boniva] 150 mg PO Q30D 12/11/21 04/21/22 PARoxetine HCL [Paxil] 30 mg PO DAILY 12/11/21 04/21/22 Baclofen [Lioresal] 20 mg PO HS 04/21/22 04/21/22 diazePAM [Valium] 5 mg PO BID PRN 04/21/22 04/21/22 Allergies Allergy/AdvReac Type Severity Reaction Status Date / Time latex Allergy Anaphylaxis Verified 04/21/22 11:28 Review of Systems ROS Statement: Those systems with pertinent positive or pertinent negative responses have been documented in the HPI. Review of Systems: CONST: Denies fever EYES: Denies blurry vision ENT: Denies nasal congestion C/V: Denies Chest pain RESP: Denies shortness of breath GI: Denies abdominal pain : Denies dysuria SKIN: Denies rash. MSK: Denies joint pain. NEURO: Endorses headache ROS Other: All systems not noted in ROS Statement are negative. 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"; History of Any Multi-Drug Resistant Organisms: C-DIFF Date of last positivie culture/infection: 2003 MDRO Source:: bowel Past Surgical History: Section, Cholecystectomy, Hysterectomy Additional Past Surgical History / Comment(s): hysterectomy, oophorectomy and salpingectomy; patient states she "coded and " from cholecystectomy complications during surgery; section x2; Past Anesthesia/Blood Transfusion Reactions: No Reported Reaction Past Psychological History: Anxiety, Bipolar, Depression, Panic Disorder, PTSD Smoking Status: Never smoker, Second hand smoke exposure Past Alcohol Use History: None Reported Past Drug Use History: Marijuana - Past Family History Father Family Medical History: Cancer, Coronary Artery Disease (CAD) Additional Family Medical History / Comment(s): neck cancer; Mother Family Medical History: Hypertension Additional Family Medical History / Comment(s): mental illness Brother(s) Family Medical History: Cancer Additional Family Medical History / Comment(s): neck cancer General Exam - General Exam Comments Initial Comments: General: Appears in mild distress secondary to headache. HEAD: Normal with no signs of head trauma. EYES: PERRLA, EOMI, conjunctiva normal, no discharge. ENT: Hearing grossly intact, normal oropharynx. RESPIRATORY: Clear breath sounds bilaterally. No wheezes, rales, or rhonchi. C/V: Regular rate and rhythm. S1 and S2 auscultated, no edema, peripheral pulses 2+ and intact throughout ABD: Abd is soft, nontender, nondistended EXT: Normal range of motion, no obvious deformity. Paraspinal muscle tenderness to palpation in the neck. SKIN: No rashes or lesions observed on exposed skin. NEURO: Alert and oriented 4. NIH is 0. GCS 15. No focal neurological deficits. Cranial nerves II through XII are intact. Limitations: no limitations Course Vital Signs 04/21/22 04/21/22 10:42 12:22 Temperature 98.4 F Pulse Rate 74 65 Respiratory 22 14 Rate Blood Pressure 143/102 119/84 O2 Sat by Pulse 96 99 Oximetry Medical Decision Making - Medical Decision Making Abdomen the patient's presentation and physical exam, I'm concerned she is having a migraine. We will treat with a migraine cocktail as well as IV fluids. She was in agreement this plan. Basic labs will be obtained and sent as well. This is not the worst headache of her life. No history of brain aneurysms. Does have a history of migraines. She was in agreement this plan. Patient is not . She is slightly hyponatremic at 127 hypochloremic at 96 which has been replenished with IV fluids. Remainder the labs are unremarkable. Vital signs remained within normal limits. On reevaluation, patient's headache has completely resolved. She would like to go home. I believe this is reasonable. Strict return precautions were discussed. I instructed the patient to follow up with their PCP in the next 1-3 days I explained that the patient should return to the emergency department if they experience any worsening symptoms. Strict return precautions were discussed with the patient. The patient expressed understanding of these instructions. I answered all questions that the patient had. The patient was discharged home in good condition with their prescriptions and follow up information. - Lab Data Result diagrams: 04/21/22 11:04 04/21/22 11:04 Lab Results 04/21/22 04/21/22 Range/Units 11:04 11:04 WBC 4.5 (3.8-10.6) k/uL RBC 3.36 L (3.80-5.40) m/uL Hgb 11.7 (11.4-16.0) gm/dL Hct 31.7 L (34.0-46.0) % MCV 94.3 (80.0-100.0) fL MCH 34.9 (25.0-35.0) pg MCHC 37.0 (31.0-37.0) g/dL RDW 11.9 (11.5-15.5) % Plt Count 286 (150-450) k/uL MPV 6.8 Sodium 127 L (137-145) mmol/L Potassium 4.3 (3.5-5.1) mmol/L Chloride 96 L (98-107) mmol/L Carbon Dioxide 23 (22-30) mmol/L Anion Gap 8 mmol/L BUN 9 (7-17) mg/dL Creatinine 0.54 (0.52-1.04) mg/dL Est GFR (CKD-EPI)AfAm >90 (>60 ml/min/1.73 sqM) Est GFR (CKD-EPI)NonAf >90 (>60 ml/min/1.73 sqM) Glucose 91 (74-99) mg/dL Calcium 8.4 (8.4-10.2) mg/dL HCG, Qual Not Detected Disposition Clinical Impression: Headache, Nausea and vomiting Disposition: HOME SELF-CARE Condition: Good Instructions (If sedation given, give patient instructions): Acute Headache (ED) Is patient prescribed a controlled substance at d/c from ED?: No Referrals: Wilberto Muller MD [Primary Care Provider] - 1-2 days Time of Disposition: 12:15
[2022-04-21 12:23] VITALS: BP 119/84; PULSE 65; RESP 14
== END 2022-04-21 12:23 | disposition home or self-care (01) ==
LOC: EC 10:41
DX: R51.9 Headache, unspecified (principal); R11.2 Nausea with vomiting, unspecified; F31.9 Bipolar disorder, unspecified; F41.9 Anxiety disorder, unspecified; F12.90 Cannabis use, unspecified, uncomplicated; Z77.22 Contact with and (suspected) exposure to environmental tobacco smoke (acute) (chronic); Z86.73 Personal history of transient ischemic attack (TIA), and cerebral infarction without residual deficits; Z79.899 Other long term (current) drug therapy
CPT/HCPCS: 36415; 80048; 85027; 84703; 99284; 96374; 96375 ×2; 96361; J1200; J0780; J1885

== ENCOUNTER → 2022-06-03 | Outpatient (CLI) | payer MEDICARE, OTHER ==
--- NOTE | 2022-06-04 07:49 | MM ---
Reason for Exam: Screening (asymptomatic). Last screening mammogram was performed 12 month(s) ago. Patient History: Menarche at age 11. First Full-Term at age 21. Left ovary removed at age 36. Right ovary removed at age 36. Hysterectomy at age 36. Postmenopausal. Patient used Hormonal Contraceptives for 7 years. 03/24/2021, Benign Core Biopsy on the left side. 06/02/2020, Benign Core Biopsy on the left side. Paternal grandmother had breast cancer. Maternal aunt had breast cancer. Maternal aunt had breast cancer. Maternal uncle had breast cancer, age 50. Risk Values: Bernadette 5 year model risk: 2.0%. NCI Lifetime model risk: 14.3%. Prior Study Comparison: 05/12/2020 [facility] Diagnostic Ultrasound, [facility]. 06/02/2020 Left Diagnostic Mammogram, [facility]. 12/08/2020 Left Diagnostic Ultrasound, [facility]. 12/08/2020 Left Diagnostic Mammogram, [facility]. 02/27/2021 Left Diagnostic Ultrasound, [facility]. 03/24/2021 Left Diagnostic Mammogram, [facility]. 06/01/2021 Bilateral Diagnostic Mammogram, [facility]. 06/01/2021 Bilateral Diagnostic Ultrasound, [facility]. Tissue Density: The breast tissue is heterogeneously dense. This may lower the sensitivity of mammography. Findings: Analyzed By CAD. There is no suspicious group of microcalcifications or new suspicious mass in either breast. Previous biopsy changes left breast. Previously sampled mass upper-outer quadrant left breast. Overall Assessment: Benign, BI-RAD 2 Management: Screening Mammogram of both breasts in 1 year. A clinical breast exam by your physician is recommended on an annual basis and results should be correlated with mammographic findings. Electronically signed and approved by: Sharif Ayala M.D. Radiologis
== END | disposition home or self-care (01) ==
LOC: RADMAMWWP 10:45
PROVIDERS: ATTEND Surgery
DX: Z12.31 Encounter for screening mammogram for malignant neoplasm of breast (principal); Z78.0 Asymptomatic menopausal state; Z80.3 Family history of malignant neoplasm of breast
CPT/HCPCS: 77063; 77067

== ENCOUNTER 2022-08-08 14:40 | Emergency (ER) | payer MEDICARE, OTHER ==
[2022-08-08 15:23] VITALS: TEMP 97.5
--- NOTE | 2022-08-08 16:20 | ED ---
General Adult HPI - General Chief complaint: Nausea/Vomiting/Diarrhea Stated complaint: Vomiting, headache Time Seen by Provider: 08/08/22 16:16 Source: patient Mode of arrival: ambulatory Limitations: no limitations - History of Present Illness Initial comments: Patient presents to the ED with her reuben for evaluation. Patient states that she has had nausea and vomiting for the past 3 days or so. Patient also states that she has had a headache and night sweats for the past couple days as well. Patient states that she has Mnire's disease, and she states that she often gets dizzy when she begins to vomit. Patient states that she has felt dizzy today. Patient is requesting IV fluids, Zofran and meclizine by name, stating that they have helped in the past when she has had similar symptoms. Patient denies measured fever. Patient denies taking any medications for her symptoms today. Patient denies trauma or injury, sudden onset of headache, LOC, neck pain or stiffness, focal numbness/weakness/neuro deficit, visual changes, speech difficulty, otalgia, sore throat, cough or cold symptoms, chest pain, dyspnea, palpitations, syncope, abdominal pain, diarrhea or constipation, bloody or melanotic stool, hematemesis, dysuria/hematuria/urinary frequency/urinary symptoms, or any other symptoms or complaints. Patient states that she is s tatus post hysterectomy. - Related Data Home Medications Medication Instructions Recorded Confirmed OXcarbazepine [Trileptal] 900 mg PO BID 04/25/20 08/08/22 Pantoprazole Sodium [Protonix] 40 mg PO BID 04/25/20 08/08/22 Pregabalin [Lyrica] 150 mg PO BID 04/25/20 08/08/22 lisinopriL [Zestril] 10 mg PO DAILY 04/25/20 08/08/22 cloNIDine HCL [Catapres] 0.1 mg PO HS 09/24/21 08/08/22 Ibandronate Sodium [Boniva] 150 mg PO Q30D 12/11/21 08/08/22 PARoxetine HCL [Paxil] 30 mg PO DAILY 12/11/21 08/08/22 Baclofen [Lioresal] 20 mg PO BID 04/21/22 08/08/22 Allergies Allergy/AdvReac Type Severity Reaction Status Date / Time latex Allergy Anaphylaxis Verified 08/08/22 21:29 Review of Systems ROS Statement: Those systems with pertinent positive or pertinent negative responses have been documented in the HPI. ROS Other: All systems not noted in ROS Statement are negative. 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"; History of Any Multi-Drug Resistant Organisms: C-DIFF Date of last positivie culture/infection: 2003 MDRO Source:: bowel Past Surgical History: Section, Cholecystectomy, Hysterectomy Additional Past Surgical History / Comment(s): hysterectomy, oophorectomy and salpingectomy; patient states she "coded and " from cholecystectomy complica tions during surgery; section x2; Past Anesthesia/Blood Transfusion Reactions: No Reported Reaction Past Psychological History: Anxiety, Bipolar, Depression, Panic Disorder, PTSD Smoking Status: Never smoker, Second hand smoke exposure Past Alcohol Use History: None Reported Past Drug Use History: Marijuana - Past Family History Father Family Medical History: Cancer, Coronary Artery Disease (CAD) Additional Family Medical History / Comment(s): neck cancer; Mother Family Medical History: Hypertension Additional Family Medical History / Comment(s): mental illness Brother(s) Family Medical History: Cancer Additional Family Medical History / Comment(s): neck cancer General Exam Limitations: no limitations General appearance: alert, in no apparent distress Head exam: Present: atraumatic, normocephalic Eye exam: Present: normal appearance, PERRL, EOMI ENT exam: Present: normal oropharynx, mucous membranes moist, TM's normal b ilaterally Neck exam: Present: other (trachea is in midline; no nuchal rigidity or meningeal signs are present on exam). Absent: tenderness, meningismus Respiratory exam: Present: normal lung sounds bilaterally. Absent: respiratory distress, wheezes, rales, rhonchi, stridor Cardiovascular Exam: Present: regular rate, normal rhythm, normal heart sounds, other (Normal radial pulses bilaterally) GI/Abdominal exam: Present: soft, normal bowel sounds. Absent: distended, tenderness, guarding Extremities exam: Absent: tenderness, pedal edema Back exam: Absent: CVA tenderness (R), CVA tenderness (L) Neurological exam: Present: alert, oriented X3. Absent: motor sensory deficit Psychiatric exam: Present: anxious Skin exam: Present: warm, dry, intact, normal color Course Vital Signs 08/08/22 08/08/22 15:21 19:00 Temperature 97.5 F L Pulse Rate 90 79 Respiratory 20 18 Rate Blood Pressure 139/99 114/71 O2 Sat by Pulse 100 97 Oximetry - Reevaluation(s) Reevaluation #1: 08/08/22 21:57 Patient states that she remains somewhat nauseated, but her symptoms have im proved with ED treatment, and she feels comfortable being discharged home at this time. Patient remains alert and breathing comfortably. Patient continues to have a soft and nontender abdominal exam. Patient is aware of her test results, and she feels comfortable being discharged home at this time. Patient was counseled about headaches, vomiting and dizziness. Patient was clearly explained return and follow-up instructions, and she was instructed to follow up closely with her primary care provider. Patient feels comfortable with this plan. Will discharge patient home with a Zofran starter pack. Medical Decision Making - Medical Decision Making Patient has a benign/nonsurgical abdominal exam. Patient has a nonfocal neurological exam. Patient's labs are fairly unremarkable. Patient is afebrile and has reassuring vital signs. I do not suspect an emergent medical condition at this time. Will discharge patient home at this time. Patient feels comfortable with this plan. - Lab Data Result diagrams: 08/08/22 16:44 08/08/22 16:44 Lab Results 08/08/22 08/08/22 08/08/22 Range/Units 16:44 16:44 17:40 WBC 3.6 L (3.8-10.6) k/uL RBC 4.28 (3.80-5.40) m/uL Hgb 14.4 (11.4-16.0) gm/dL Hct 38.6 (34.0-46.0) % MCV 90.3 (80.0-100.0) fL MCH 33.6 (25.0-35.0) pg MCHC 37.2 H (31.0-37.0) g/dL RDW 11.7 (11.5-15.5) % Plt Count 249 (150-450) k/uL MPV 7.3 Neutrophils % 82 % Lymphocytes % 5 % Monocytes % 10 % Eosinophils % 1 % Basophils % 1 % Neutrophils # 3.0 (1.3-7.7) k/uL Lymphocytes # 0.2 L (1.0-4.8) k/uL Monocytes # 0.4 (0-1.0) k/uL Eosinophils # 0.0 (0-0.7) k/uL Basophils # 0.0 (0-0.2) k/uL Sodium 131 L (137-145) mmol/L Potassium 4.0 (3.5-5.1) mmol/L Chloride 96 L (98-107) mmol/L Carbon Dioxide 20 L (22-30) mmol/L Anion Gap 15 mmol/L BUN 10 (7-17) mg/dL Creatinine 0.55 (0.52-1.04) mg/dL Est GFR (CKD-EPI)AfAm >90 (>60 ml/min/1.73 sqM) Est GFR (CKD-EPI)NonAf >90 (>60 ml/min/1.73 sqM) Glucose 116 H (74-99) mg/dL Calcium 9.6 (8.4-10.2) mg/dL Total Bilirubin 0.3 (0.2-1.3) mg/dL AST 22 (14-36) U/L ALT 17 (4-34) U/L Alkaline Phosphatase 132 H (38-126) U/L Total Protein 8.1 (6.3-8.2) g/dL Albumin 5.0 (3.5-5.0) g/dL Lipase 41 (23-300) U/L Urine Color Yellow Urine Appearance Cloudy H (Clear) Urine pH 7.0 (5.0-8.0) Ur Specific [place] 1.023 (1.001-1.035) Urine Protein 1+ H (Negative) Urine Glucose (UA) Negative (Negative) Urine Ketones 1+ H (Negative) Urine Blood Negative (Negative) Urine Nitrite Negative (Negative) Urine Bilirubin Negative (Negative) Urine Urobilinogen <2.0 (<2.0) mg/dL Ur Leukocyte Esterase Negative (Negative) Urine RBC 3 (0-5) /hpf Urine WBC 5 (0-5) /hpf Ur Squamous Epith Cells 13 H (0-4) /hpf Amorphous Sediment Rare H (None) /hpf Urine Bacteria Occasional H (None) /hpf Urine Mucus Many H (None) /hpf Disposition Clinical Impression: Vomiting, Headache, Dizziness Disposition: HOME SELF-CARE Condition: Stable Instructions (If sedation given, give patient instructions): Acute Nausea and Vomiting (ED), Dizziness (ED), Acute Headache (ED) Additional Instructions: Return to the ER immediately should you develop new or worsening pain, increased dizziness, persistent vomiting, fainting, a fever, shortness of breath, or new or worsening symptoms. Follow up closely with your primary care provider. Is patient prescribed a controlled substance at d/c from ED?: No Referrals: Wilberto Muller MD [Primary Care Provider] - 1-2 days Time of Disposition: 22:03
[2022-08-08] MEDS ORDERED: KETOROLAC 15 MG/ML 1 ML VIAL IVP STA (16:24)
[2022-08-08] MEDS ORDERED: SODIUM CHLORIDE 0.9% 1,000 ML IV STA (16:24)
[2022-08-08] MEDS ORDERED: ONDANSETRON 4 MG/2 ML VIAL IVP STA ×2 (16:24→19:36)
[2022-08-08] MEDS ORDERED: MECLIZINE 12.5 MG TAB PO STA (16:25)
[2022-08-08] MEDS: diphenhydrAMINE 50 MG/ML 1 ML VIAL IVP STA ×2 (16:41→16:42)
[2022-08-08 16:55] LABS: Basophils % (A) 1 %; Eosinophils % (A) 1 %; HCT 38.6 % (34.0-46.0); HGB 14.4 gm/dL (11.4-16.0); Lymphocytes # (A) 0.2 k/uL (1.0-4.8); Lymphocytes % (A) 5 %; MCH 33.6 pg (25.0-35.0); MCHC 37.2 g/dL (31.0-37.0); MCV 90.3 fL (80.0-100.0); Mean Platelet Volume 7.3; Monocytes # (A) 0.4 k/uL (0-1.0); Monocytes % (A) 10 %; Neutrophils % (A) 82 %; Platelet Count 249 k/uL (150-450); RBC 4.28 m/uL (3.80-5.40); RDW 11.7 % (11.5-15.5); WBC 3.6 k/uL (3.8-10.6)
[2022-08-08 17:08] LABS: ALT 17 U/L (4-34); AST 22 U/L (14-36); African American GFR (CKD) >90 (>60 ml/min/1.73 sqM); Alkaline Phosphatase 132 U/L (38-126); Anion Gap 15 mmol/L; Blood Urea Nitrogen 10 mg/dL (7-17); Calcium 9.6 mg/dL (8.4-10.2); Carbon Dioxide 20 mmol/L (22-30); Chloride 96 mmol/L (98-107); Glucose 116 mg/dL (74-99); Lipase 41 U/L (23-300); Non-African American GFR(CKD) >90 (>60 ml/min/1.73 sqM); Sodium 131 mmol/L (137-145); Total Bilirubin 0.3 mg/dL (0.2-1.3); Total Protein 8.1 g/dL (6.3-8.2)
[2022-08-08] MEDS ORDERED: MORPHINE SULFATE 4 MG/ML SYRINGE IVP STA (17:30)
[2022-08-08 18:07] LABS: Amorphous Sediment,Urine Rare /hpf; Appearance,Urine Cloudy (Clear); Bacteria,Urine Occasional /hpf; Bilirubin,Urine Negative (Negative); Blood,Urine Negative (Negative); Color,Urine Yellow; Glucose,Urine (UA) Negative (Negative); Ketones,Urine 1+ (Negative); Leukocyte Esterase,Urine Negative (Negative); Mucus,Urine Many /hpf; Nitrite,Urine Negative (Negative); Protein,Urine 1+ (Negative); RBC,Urine 3 /hpf (0-5); Specific Gravity,Urine 1.023 (1.001-1.035); Squamous Epithelial Cell,Urine 13 /hpf (0-4); Urobilinogen,Urine <2.0 mg/dL (<2.0); WBC,Urine 5 /hpf (0-5)
[2022-08-08 19:01] VITALS: BP 114/71; PULSE 79; RESP 18
[2022-08-08] MEDS ORDERED: METOCLOPRAMIDE 5 MG/ML 2 ML VIAL IVP STA (20:05)
[2022-08-08] MEDS ORDERED: ONDANSETRON 4 MG ODT STARTER PACK 2 TAB BTL PO STA (21:57)
== END 2022-08-08 22:20 | disposition home or self-care (01) ==
LOC: EC 14:40
DX: R42 Dizziness and giddiness (principal); R51.9 Headache, unspecified; Z86.73 Personal history of transient ischemic attack (TIA), and cerebral infarction without residual deficits; Z91.040 Latex allergy status
CPT/HCPCS: 36415; 80053; 83690; 85025; 81001; 99284; 96374; 96375; 96376; 96361; J2270; J2765; J2405; J1885; S0119

== ENCOUNTER 2022-08-22 10:10 | Emergency (ER) | payer MEDICARE, OTHER ==
[2022-08-22 10:15] VITALS: RESP 18; TEMP 98.8
[2022-08-22] MEDS ORDERED: SODIUM CHLORIDE 0.9% 2,000 ML IV STA (10:36)
[2022-08-22 11:13] LABS: Basophils % (A) 1 %; Eosinophils # (A) 0.1 k/uL (0-0.7); Eosinophils % (A) 2 %; HCT 38.3 % (34.0-46.0); HGB 13.8 gm/dL (11.4-16.0); Lymphocytes # (A) 0.8 k/uL (1.0-4.8); Lymphocytes % (A) 18 %; MCV 91.7 fL (80.0-100.0); Mean Platelet Volume 7.5; Monocytes # (A) 0.4 k/uL (0-1.0); Monocytes % (A) 9 %; Neutrophils % (A) 69 %; Platelet Count 317 k/uL (150-450); RBC 4.18 m/uL (3.80-5.40); RDW 11.9 % (11.5-15.5); WBC 4.4 k/uL (3.8-10.6)
--- NOTE | 2022-08-22 11:22 | ED ---
Nausea/Vomiting/Diarrhea HPI - General Chief complaint: Nausea/Vomiting/Diarrhea Stated complaint: Vomiting Time Seen by Provider: 08/22/22 10:22 Source: patient, RN notes reviewed Mode of arrival: ambulatory Limitations: no limitations - History of Present Illness Initial comments: This a 47-year-old female presents emergency from chief complaint of nausea vomiting dehydration abdominal pain. Patient states she's been sick for last 2- 3 weeks she initially like she had some sort of illness then was recently diagnosed with COVID-19 her PCPs office after ER visit here. Patient states that this was the end of July. Patient states she's having increasing abdominal discomfort, vomiting states she's had multiple surgeries in her abdomen believes that she's having scar tissue, obstruction issues. She does admit she has some small amount of stool output but is yellow mucousy stool. Should persistent vomiting, only dry heaving at this time she has a chest pain or shortness of breath. Denies reported fever but states she had hot and cold flashes. Patient has no dysuria no hematuria denies any melena, hematochezia or hematemesis - Related Data Home Medications Medication Instructions Recorded Confirmed OXcarbazepine [Trileptal] 900 mg PO BID 04/25/20 08/08/22 Pantoprazole Sodium [Protonix] 40 mg PO BID 04/25/20 08/08/22 Pregabalin [Lyrica] 150 mg PO BID 04/25/20 08/08/22 lisinopriL [Zestril] 10 mg PO DAILY 04/25/20 08/08/22 cloNIDine HCL [Catapres] 0.1 mg PO HS 09/24/21 08/08/22 Ibandronate Sodium [Boniva] 150 mg PO Q30D 12/11/21 08/08/22 PARoxetine HCL [Paxil] 30 mg PO DAILY 12/11/21 08/08/22 Baclofen [Lioresal] 20 mg PO BID 04/21/22 08/08/22 Previous Rx's Medication Instructions Recorded Metoclopramide [Reglan] 10 mg PO TID PRN #15 tab 08/22/22 Allergies Allergy/AdvReac Type Severity Reaction Status Date / Time latex Allergy Anaphylaxis Verified 08/08/22 21:29 Review of Systems ROS Statement: Those systems with pertinent positive or pertinent negative responses have been documented in the HPI. ROS Other: All systems not noted in ROS Statement are negative. 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"; History of Any Multi-Drug Resistant Organisms: C-DIFF Date of last positivie culture/infection: 2003 MDRO Source:: bowel Past Surgical History: Section, Cholecystectomy, Hysterectomy Additional Past Surgical History / Comment(s): hysterectomy, oophorectomy and salpingectomy; patient states she "coded and " from cholecystectomy c omplications during surgery; section x2; Past Anesthesia/Blood Transfusion Reactions: No Reported Reaction Past Psychological History: Anxiety, Bipolar, Depression, Panic Disorder, PTSD Smoking Status: Never smoker, Second hand smoke exposure Past Alcohol Use History: None Reported Past Drug Use History: Marijuana - Past Family History Father Family Medical History: Cancer, Coronary Artery Disease (CAD) Additional Family Medical History / Comment(s): neck cancer; Mother Family Medical History: Hypertension Additional Family Medical History / Comment(s): mental illness Brother(s) Family Medical History: Cancer Additional Family Medical History / Comment(s): neck cancer General Exam Limitations: no limitations General appearance: alert, in no apparent distress Head exam: Present: atraumatic, normocephalic, normal inspection Eye exam: Present: normal appearance, PERRL, EOMI. Absent: scleral icterus, conjunctival injection, periorbital swelling ENT exam: Present: normal exam, mucous membranes moist Neck exam: Present: normal inspection. Absent: tenderness, meningismus, lymphadenopathy Respiratory exam: Present: normal lung sounds bilaterally. Absent: respiratory distress, wheezes, rales, rhonchi, stridor Cardiovascular Exam: Present: regular rate, normal rhythm, normal heart sounds. Absent: systolic murmur, diastolic murmur, rubs, gallop, clicks GI/Abdominal exam: Present: soft, tenderness, normal bowel sounds. Absent: distended, guarding, rebound, rigid Back exam: Absent: CVA tenderness (R), CVA tenderness (L) Neurological exam: Present: alert Skin exam: Present: warm, dry, intact, normal color. Absent: rash Course Vital Signs 08/22/22 10:11 Temperature 98.8 F Pulse Rate 109 H Respiratory 18 Rate Blood Pressure 139/78 O2 Sat by Pulse 98 Oximetry Medical Decision Making - Medical Decision Making 47 present for increased nausea vomiting dehydration. Patient 4: No acute findings. Patient will be discharged in stable condition with antiemetics return parameters were discussed. - Lab Data Result diagrams: 08/22/22 10:53 08/22/22 10:53 Lab Results 08/22/22 08/22/22 08/22/22 Range/Units 10:53 10:53 10:53 WBC 4.4 (3.8-10.6) k/uL RBC 4.18 (3.80-5.40) m/uL Hgb 13.8 (11.4-16.0) gm/dL Hct 38.3 (34.0-46.0) % MCV 91.7 (80.0-100.0) fL MCH 33.0 (25.0-35.0) pg MCHC 36.0 (31.0-37.0) g/dL RDW 11.9 (11.5-15.5) % Plt Count 317 (150-450) k/uL MPV 7.5 Neutrophils % 69 % Lymphocytes % 18 % Monocytes % 9 % Eosinophils % 2 % Basophils % 1 % Neutrophils # 3.0 (1.3-7.7) k/uL Lymphocytes # 0.8 L (1.0-4.8) k/uL Monocytes # 0.4 (0-1.0) k/uL Eosinophils # 0.1 (0-0.7) k/uL Basophils # 0.0 (0-0.2) k/uL Sodium 137 (137-145) mmol/L Potassium 4.0 (3.5-5.1) mmol/L Chloride 103 (98-107) mmol/L Carbon Dioxide 24 (22-30) mmol/L Anion Gap 10 mmol/L BUN 8 (7-17) mg/dL Creatinine 0.63 (0.52-1.04) mg/dL Est GFR (CKD-EPI)AfAm >90 (>60 ml/min/1.73 sqM) Est GFR (CKD-EPI)NonAf >90 (>60 ml/min/1.73 sqM) Glucose 103 H (74-99) mg/dL Plasma Lactic Acid Titi 1.5 (0.7-2.0) mmol/L Calcium 9.0 (8.4-10.2) mg/dL Total Bilirubin 0.9 (0.2-1.3) mg/dL AST 18 (14-36) U/L ALT 13 (4-34) U/L Alkaline Phosphatase 123 (38-126) U/L Total Protein 7.8 (6.3-8.2) g/dL Albumin 4.7 (3.5-5.0) g/dL Lipase 47 (23-300) U/L Urine Color Urine Appearance (Clear) Urine pH (5.0-8.0) Ur Specific [place] (1.001-1.035) Urine Protein (Negative) Urine Glucose (UA) (Negative) Urine Ketones (Negative) Urine Blood (Negative) Urine Nitrite (Negative) Urine Bilirubin (Negative) Urine Urobilinogen (<2.0) mg/dL Ur Leukocyte Esterase (Negative) Influenza Type A (PCR) (Not Detectd) Influenza Type B (PCR) (Not Detectd) RSV (PCR) (Not Detectd) SARS-CoV-2 (PCR) (Not Detectd) 08/22/22 08/22/22 Range/Units 10:53 12:09 WBC (3.8-10.6) k/uL RBC (3.80-5.40) m/uL Hgb (11.4-16.0) gm/dL Hct (34.0-46.0) % MCV (80.0-100.0) fL MCH (25.0-35.0) pg MCHC (31.0-37.0) g/dL RDW (11.5-15.5) % Plt Count (150-450) k/uL MPV Neutrophils % % Lymphocytes % % Monocytes % % Eosinophils % % Basophils % % Neutrophils # (1.3-7.7) k/uL Lymphocytes # (1.0-4.8) k/uL Monocytes # (0-1.0) k/uL Eosinophils # (0-0.7) k/uL Basophils # (0-0.2) k/uL Sodium (137-145) mmol/L Potassium (3.5-5.1) mmol/L Chloride (98-107) mmol/L Carbon Dioxide (22-30) mmol/L Anion Gap mmol/L BUN (7-17) mg/dL Creatinine (0.52-1.04) mg/dL Est GFR (CKD-EPI)AfAm (>60 ml/min/1.73 sqM) Est GFR (CKD-EPI)NonAf (>60 ml/min/1.73 sqM) Glucose (74-99) mg/dL Plasma Lactic Acid Titi (0.7-2.0) mmol/L Calcium (8.4-10.2) mg/dL Total Bilirubin (0.2-1.3) mg/dL AST (14-36) U/L ALT (4-34) U/L Alkaline Phosphatase (38-126) U/L Total Protein (6.3-8.2) g/dL Albumin (3.5-5.0) g/dL Lipase (23-300) U/L Urine Color Colorless Urine Appearance Clear (Clear) Urine pH 8.0 (5.0-8.0) Ur Specific [place] 1.030 (1.001-1.035) Urine Protein Negative (Negative) Urine Glucose (UA) Negative (Negative) Urine Ketones 1+ H (Negative) Urine Blood Negative (Negative) Urine Nitrite Negative (Negative) Urine Bilirubin Negative (Negative) Urine Urobilinogen <2.0 (<2.0) mg/dL Ur Leukocyte Esterase Negative (Negative) Influenza Type A (PCR) Not Detected (Not Detectd) Influenza Type B (PCR) Not Detected (Not Detectd) RSV (PCR) Not Detected (Not Detectd) SARS-CoV-2 (PCR) Detected A (Not Detectd) Disposition Clinical Impression: Nausea & vomiting, COVID-19 Disposition: HOME SELF-CARE Condition: Stable Instructions (If sedation given, give patient instructions): Acute Nausea and Vomiting (ED) Additional Instructions: Please return to the Emergency Department if symptoms worsen or any other concerns. Prescriptions: Metoclopramide [Reglan] 10 mg PO TID PRN #15 tab PRN Reason: Nausea Is patient prescribed a controlled substance at d/c from ED?: No Referrals: Wilberto Muller MD [Primary Care Provider] - 1-2 days Time of Disposition: 13:24
[2022-08-22 11:29] LABS: ALT 13 U/L (4-34); AST 18 U/L (14-36); African American GFR (CKD) >90 (>60 ml/min/1.73 sqM); Albumin 4.7 g/dL (3.5-5.0); Alkaline Phosphatase 123 U/L (38-126); Anion Gap 10 mmol/L; Blood Urea Nitrogen 8 mg/dL (7-17); Carbon Dioxide 24 mmol/L (22-30); Chloride 103 mmol/L (98-107); Glucose 103 mg/dL (74-99); Lipase 47 U/L (23-300); Non-African American GFR(CKD) >90 (>60 ml/min/1.73 sqM); Sodium 137 mmol/L (137-145); Total Bilirubin 0.9 mg/dL (0.2-1.3); Total Protein 7.8 g/dL (6.3-8.2)
[2022-08-22 12:14] LABS: Appearance,Urine Clear (Clear); Bilirubin,Urine Negative (Negative); Blood,Urine Negative (Negative); Color,Urine Colorless; Glucose,Urine (UA) Negative (Negative); Ketones,Urine 1+ (Negative); Leukocyte Esterase,Urine Negative (Negative); Nitrite,Urine Negative (Negative); Protein,Urine Negative (Negative); Urobilinogen,Urine <2.0 mg/dL (<2.0)
--- NOTE | 2022-08-22 12:15 | CT ---
EXAMINATION TYPE: CT abdomen pelvis w con CT DLP: 969.1 mGycm, Automated exposure control for dose reduction was used. DATE OF EXAM: 08/22/2022 11:39 AM COMPARISON: CT abdomen pelvis most recent from 02/07/2022, lumbar spine and pelvis. CLINICAL INDICATION:Female, 47 years old with history of abdominal pain; Abdominal pain, nausea and v omiting TECHNIQUE: Axial CT of the abdomen and pelvis. Sagittal and coronal reformats were created on a [employer] workstation. Contrast used:100 ml mL of Isovue 300 with IV Contrast, Oral contrast used: without Oral Contrast FINDINGS: LOWER CHEST: Unremarkable ABDOMEN LIVER: Unremarkable GALLBLADDER AND BILE DUCTS: The gallbladder is surgically absent. PANCREAS: Unremarkable. SPLEEN: Unremarkable. ADRENAL GLANDS: Unremarkable. KIDNEYS AND URETERS: Right cortical renal calcification. Area of cortical thinning on the right. No h ydronephrosis. Nonobstructing right renal calculus measuring 3 mm. PELVIS BLADDER: Unremarkable REPRODUCTIVE: Unremarkable. ABDOMEN & PELVIS STOMACH AND BOWEL: No evidence of bowel obstruction. Appendix is normal. PERITONEUM: No evidence of pneumoperitoneum or free fluid. VASCULATURE: No evidence of aortic aneurysm. MUSCULOSKELETAL: No acute osseous abnormalities, multilevel disc degeneration changes with endplate s clerosis and disc space narrowing at L5-S1. LYMPH NODES: No gross evidence for lymphadenopathy. SOFT TISSUE/ABDOMINAL WALL: Unremarkable IMPRESSION: 1. No evidence for acute abdominal process. 2. Right renal areas of cortical thinning and calcification likely sequela of prior injury. 3. Nonobstructing right renal calculi.
[2022-08-22] MEDS ORDERED: diphenhydrAMINE 50 MG/ML 1 ML VIAL IVP STA (12:45)
[2022-08-22] MEDS ORDERED: METOCLOPRAMIDE 5 MG/ML 2 ML VIAL IVP STA (12:45)
[2022-08-22 13:34] VITALS: BP 147/87; PULSE 92
== END 2022-08-22 13:33 | disposition home or self-care (01) ==
LOC: EC 10:10
DX: U07.1 COVID-19 (principal); Z86.73 Personal history of transient ischemic attack (TIA), and cerebral infarction without residual deficits; F41.9 Anxiety disorder, unspecified; F31.9 Bipolar disorder, unspecified; F12.90 Cannabis use, unspecified, uncomplicated; Z91.040 Latex allergy status; Z79.899 Other long term (current) drug therapy
CPT/HCPCS: 36415; 93005; 80053; 83605; 83690; 85025; 81003; 87636; 74177; 99284; 96374; 96375; 96361 ×2; J2765; Q9967; J1790

== ENCOUNTER 2022-10-27 06:45 | Day surgery (SDC) | payer MEDICARE, OTHER ==
[2022-10-25 11:09] VITALS: BMI 35.0
[~2022-10-27 06:45] MED LIST: LACTATED RINGERS 1,000 ML IV SCH; LIDOCAINE 1% (10MG/ML) FOR IV START INTRADERMA PRN
[2022-10-27 07:42] VITALS: TEMP 97
[2022-10-27] MEDS ORDERED: PROPOFOL 10 MG/ML 20 ML VIAL IV ONE (08:09)
[2022-10-27] MEDS ORDERED: fentaNYL (PF) 50 MCG/ML 2 ML AMP ONE (08:09)
[2022-10-27] MEDS ORDERED: MIDAZOLAM 2 MG/2 ML VIAL ONE (08:09)
[2022-10-27] MEDS ORDERED: ONDANSETRON 4 MG/2 ML VIAL ONE (08:09)
[2022-10-27] MEDS ORDERED: LIDOCAINE 2% INJ 20 MG/ML (2 ML VIAL) ONE (08:09)
--- NOTE | 2022-10-27 08:40 | P.PCN ---
Date of Procedure: 10/27/22 Procedure(s) Performed: Brief history: Patient is a pleasant scheduled for an elective upper endoscopy as well as colonoscopy as a part of evaluation of GERD and screening for colon cancer. Father and paternal uncle diagnosed with colon cancer at age 50. Procedure performed: Esophagogastroduodenoscopy with biopsy Colonoscopy Preoperative diagnosis: GERD/epigastric pain Screening for colon cancer/family history of colon cancer Anesthesia: MAC Procedure: After informed consent was obtained from the patient was brought into the endoscopy unit and IV sedation was administered by anesthesia under continuous monitoring. Initially upper endoscopy was done. The Olympus GF 160 video endoscope was inserted inserted into the mouth and esophagus intubated without any difficulty and was gradually advanced into the stomach and duodenum and carefully examined. The bulb and second part of the duodenum appeared normal. The scope was then withdrawn into the stomach adequately insufflated with air and upon careful examination the antrum had mild gastritis and biopsies were done from this area. Mucosa of the body, cardia and fundus appeared normal. The scope was then withdrawn into the esophagus. The GE junction was located at 40 cm to the incisors. It appeared regular with no erythema erosions or ulcerations. Rest of the esophagus appeared normal. Patient tolerated the procedure well. At this time the patient continued to remain sedation. Initial digital rectal examination was normal. Olympus CF 160 video colonoscope was then inserted into the rectum and gradually advanced to the cecum without any difficulty. Careful examination was performed as the scope was gradually being withdrawn. The prep was excellent. The cecum, ascending colon, transverse colon, descending colon, sigmoid colon and rectum appeared normal. Retroflexion was performed in the rectum and no lesions were noted. Patient tolerated the procedure well. Impression: 1. Upper endoscopy revealed mild antral gastritis but no evidence of esophagitis or peptic ulcer 2. Colonoscopy was within normal limits with no evidence of colorectal neoplasia Recommendations: Findings of this examination were discussed with the patient as well as her family. She was advised to follow with the biopsy results. Continue with Protonix 40 mg twice daily and follow antireflux measures. Recommend repeat screening colonoscopy in 5 years because of the family history of colon cancer.
[2022-10-27 08:51] VITALS: RESP 16
[2022-10-27 09:08] VITALS: BP 127/86; PULSE 64
== END 2022-10-27 09:38 | disposition home or self-care (01) ==
LOC: ORWHC2ENDO 06:45
PROVIDERS: ATTEND Internal Medicine Gastroenterology
DX: Z12.11 Encounter for screening for malignant neoplasm of colon (principal); K29.50 Unspecified chronic gastritis without bleeding; K21.9 Gastro-esophageal reflux disease without esophagitis; Z80.0 Family history of malignant neoplasm of digestive organs; Z90.710 Acquired absence of both cervix and uterus; Z79.899 Other long term (current) drug therapy
CPT/HCPCS: 43239; J2250; J2405; J3010; J2704; J2001; G0105; 88305

== ENCOUNTER → 2023-07-20 | Outpatient (CLI) | payer MEDICARE, OTHER ==
--- NOTE | 2023-07-22 10:51 | MR ---
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 Specialized thin s equences were obtained through the internal auditory canals. Pre-and post gadolinium sequences were obtained. MR contrast: IV Contrast: 8 cc Gadavist FINDINGS: Scattered white matter changes of the deep white matter and subcortical white matter within the right parietal region. Most of which are stable. A single white matter lesion is more prominent on today's exam series 501 image 27 measuring 5 mm which may be secondary to slice selection. There is no evide nce for abnormal postcontrast enhancement to suggest active demyelination. No evidence of restricted diffusion. The david-white junctions, ventricular system, and cisterns appear unremarkable. Midline structures show no abnormality. Diffusion-weighted imaging shows no evidence of restricted diffusion. The suscep tibility weighted images do not reveal any evidence for micro-hemorrhage. The bone marrow signal is within normal limits. Paranasal sinuses and mastoid air cells: Mild scattered paranasal sinus disease. Visualized orbits: Orbital contents are intact. After administration of gadolinium, no abnormal enhancement is seen. The internal auditory canal sequences demonstrate no significant irregularity. The 7th cranial nerve s, 8 cranial nerves, and cerebellar pontine angles appear unremarkable. After the administration maylin olinium, no abnormal enhancement is seen within the internal auditory canals. Vascular loop: None. IMPRESSION: 1. No evidence of intracranial mass nor acute/subacute CVA. 2. No evidence of internal auditory canal abnormality. 3. Scattered nonspecific white matter changes, a majority of which are stable. A single lesion in th e left frontal lobe is more prominent. This may be due to slice selection on today's exam.
== END | disposition home or self-care (01) ==
LOC: RADMRIMAIN 18:26
PROVIDERS: ATTEND Otolaryngology Otology & Neurotology
DX: D33.3 Benign neoplasm of cranial nerves (principal); H91.93 Unspecified hearing loss, bilateral; G93.89 Other specified disorders of brain
CPT/HCPCS: 70553; A9585

== ENCOUNTER 2023-11-08 23:58 | Emergency (ER) | payer MEDICARE, OTHER ==
--- NOTE | 2023-11-09 00:44 | ED ---
ENT HPI - General Source: patient Mode of arrival: ambulatory Limitations: no limitations <John Recio - Last Filed: 11/09/23 00:44> <Shanika Holm - Last Filed: 11/17/23 22:14> - General Chief complaint: Dental/Oral Stated complaint: facial swelling Time Seen by Provider: 11/09/23 00:17 - History of Present Illness Initial comments: 48-year-old female presenting to the ED with a chief complaint of dental pain. Patient states 2 days ago and was started on Augmentin for a dental infection. Despite this her reports worsening dental pain. Also notes some facial swelling prompting presentation to the ED for further evaluation. Denies fever or chills. No chest pain or shortness of breath. No other complaints. (John Recio) - Related Data Home Medications Medication Instructions Recorded Confirmed OXcarbazepine [Trileptal] 900 mg PO BID 04/25/20 10/27/22 Pantoprazole Sodium [Protonix] 40 mg PO BID 04/25/20 10/27/22 Pregabalin [Lyrica] 150 mg PO HS 04/25/20 10/27/22 lisinopriL [Zestril] 10 mg PO DAILY 04/25/20 10/27/22 cloNIDine HCL [Catapres] 0.1 - 0.2 mg PO HS 09/24/21 10/27/22 Ibandronate Sodium [Boniva] 150 mg PO Q30D 12/11/21 10/27/22 PARoxetine HCL [Paxil] 30 mg PO HS 12/11/21 10/27/22 Baclofen [Lioresal] 20 mg PO BID PRN 04/21/22 10/27/22 Cholecalciferol [Vitamin D3 (10 10 mcg PO DAILY 10/25/22 10/27/22 Mcg = 400 Iu)] Cyanocobalamin (Vitamin B-12) 1,000 mcg PO DAILY 10/25/22 10/27/22 [Vitamin B-12] Previous Rx's Medication Instructions Recorded Metoclopramide [Reglan] 10 mg PO TID PRN #15 tab 08/22/22 HYDROcodone/APAP 5-325MG [[place] 1 tab PO Q6HR PRN 3 Days #12 tab 11/09/23 5-325] clindamycin HCL [Cleocin] 300 mg PO QID #28 cap 11/09/23 Allergies Allergy/AdvReac Type Severity Reaction Status Date / Time latex Allergy Anaphylaxis Verified 11/09/23 00:02 Review of Systems ROS Other: All systems not noted in ROS Statement are negative. <John Recio - Last Filed: 11/09/23 00:44> ROS Other: All systems not noted in ROS Statement are negative. <Shanika Holm - Last Filed: 11/17/23 22:14> ROS Statement: Those systems with pertinent positive or pertinent negative responses have been documented in the HPI. 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"; TIA X7 POSSIBLE ONE CVA, MIGRAINE HEADACHES, VERTIGO, COLONOSCOPY,EGD History of Any Multi-Drug Resistant Organisms: C-DIFF Date of last positivie culture/infection: 2003 MDRO Source:: bowel Past Surgical History: Section, Cholecystectomy, Hysterectomy Additional Past Surgical History / Comment(s): hysterectomy, oophorectomy and salpingectomy; patient states she "coded and " from cholecystectomy CAME BACK TO THE ER - HAD BLEEDING AND BILE INTO THE ABDOMEN AND CODED" section x2;LAPAROSCOPIC SURGERY TO REMOVE ADHESIONS X2 Past Anesthesia/Blood Transfusion Reactions: Previous Problems w/ Anesthesia, Motion Sickness, Postoperative Nausea & Vomiting (PONV) Past Psychological History: Anxiety, Bipolar, Depression, Panic Disorder, PTSD Smoking Status: Never smoker Past Alcohol Use History: None Reported Past Drug Use History: Marijuana - Past Family History Father Family Medical History: Cancer, Coronary Artery Disease (CAD) Mother Family Medical History: Hypertension Additional Family Medical History / Comment(s): mental illness, Brother(s) Family Medical History: Cancer Additional Family Medical History / Comment(s): neck cancer, THROAT CANCER <John Recio - Last Filed: 11/09/23 00:44> General Exam Limitations: no limitations General appearance: alert ENT exam: Present: other (No evidence of significant deepthi-apical abscess. Tolerating secretions. No stridor.) Respiratory exam: Present: normal lung sounds bilaterally Cardiovascular Exam: Present: regular rate, normal rhythm GI/Abdominal exam: Present: soft Neurological exam: Present: alert, oriented X3 Skin exam: Present: warm, dry <John Recio - Last Filed: 11/09/23 00:44> Course Vital Signs 11/09/23 11/09/23 00:00 01:19 Temperature 97.6 F 98.3 F Pulse Rate 77 88 Respiratory 18 16 Rate Blood Pressure 156/109 146/92 O2 Sat by Pulse 98 99 Oximetry Medical Decision Making <John Recio - Last Filed: 11/09/23 00:44> <Shanika Holm - Last Filed: 11/17/23 22:14> - Medical Decision Making Was pt. sent in by a medical professional or institution (, JO, LICENSED PLUMBER, urgent care, hospital, or intermediate...) When possible be specific @ -[No] Did you speak to anyone other than the patient for history (EMS, parent, family, police, friend...)? What history was obtained from this source @ -[No] Did you review nursing and triage notes (agree or disagree)? Why? @ -[I reviewed and agree with nursing and triage notes] Were old charts reviewed (outside hosp., previous admission, EMS record, old EKG, old radiological studies, urgent care reports/EKG's, intermediate records)? Report findings @ -[No old charts were reviewed] Differential Diagnosis (chest pain, altered mental status, abdominal pain women, abdominal pain men, vaginal bleeding, weakness, fever, dyspnea, syncope, headache, dizziness, GI bleed, back pain, seizure, CVA, palpatations, mental health, musculoskeletal)? @ -Abhilash's angina, EKG interpreted by me (3pts min.). @ -[As above] X-rays interpreted by me (1pt min.). @ -[None done] CT interpreted by me (1pt min.). @ -[None done] U/S interpreted by me (1pt. min.). @ -[None done] What testing was considered but not performed or refused? (CT, X-rays, U/S, labs)? Why? @ -[None] What meds were considered but not given or refused? Why? @ -[None] Did you discuss the management of the patient with other professionals (professionals i.e. JO Sinha, LICENSED PLUMBER, lab, RT, psych nurse, social work associate, bread jockey, teacher, security officer supervisor, protective services case worker)? Give summary @ -[No] Was smoking cessation discussed for >3mins.? @ -[No] Was critical care preformed (if so, how long)? @ -[No] Were there social determinants of health that impacted care today? How? (Homelessness, low income, unemployed, alcoholism, drug addiction, transportation, low edu. Level, literacy, decrease access to med. care, longterm, rehab)? @ -[No] Was there de-escalation of care discussed even if they declined (Discuss DNR or withdrawal of care, Hospice)? DNR status @ -[No] What co-morbidities impacted this encounter? (DM, HTN, Smoking, COPD, CAD, Cancer, CVA, ARF, Chemo, Hep., AIDS, mental health diagnosis, sleep apnea, morbid obesity)? @ -[None] Was patient admitted / discharged? Hospital course, mention meds given and route, prescriptions, significant lab abnormalities, going to OR and other pertinent info. @ -[hospital course] Undiagnosed new problem with uncertain prognosis? @ -[No] Drug Therapy requiring intensive monitoring for toxicity (Heparin, Nitro, Insulin, Cardizem)? @ -[No] Were any procedures done? @ -[No] Diagnosis/symptom? @ -[default] Acute, or Chronic, or Acute on Chronic? @ -[default] Uncomplicated (without systemic symptoms) or Complicated (systemic symptoms)? @ -[default] Side effects of treatment? @ -[No] Exacerbation, Progression, or Severe Exacerbation? @ -[No] Poses a threat to life or bodily function? How? (Chest pain, [place], [place], pneumonia, PE, COPD, DKA, ARF, appy, cholecystitis, CVA, Diverticulitis, Homicidal, Suicidal, threat to staff... and all critical care pts) @ -[No] (John Recio) Was pt. sent in by a medical professional or institution (JO Sinha, LICENSED PLUMBER, urgent care, hospital, or intermediate...) When possible be specific @ -No Did you speak to anyone other than the patient for history (EMS, parent, family, police, friend...)? What history was obtained from this source @ -No Did you review nursing and triage notes (agree or disagree)? Why? @ -I reviewed and agree with nursing and triage notes Were old charts reviewed (outside hosp., previous admission, EMS record, old EKG, old radiological studies, urgent care reports/EKG's, intermediate records)? Report findings @ -No old charts were reviewed Differential Diagnosis (chest pain, altered mental status, abdominal pain women, abdominal pain men, vaginal bleeding, weakness, fever, dyspnea, syncope, headache, dizziness, GI bleed, back pain, seizure, CVA, palpatations, mental health, musculoskeletal)? @ -Dentalgia, TMJ, dental abscess, Abhilash's EKG interpreted by me (3pts min.). @ -Not done X-rays interpreted by me (1pt min.). @ -None done CT interpreted by me (1pt min.). @ -None done U/S interpreted by me (1pt. min.). @ -None done What testing was considered but not performed or refused? (CT, X-rays, U/S, labs)? Why? @ -None What meds were considered but not given or refused? Why? @ -None Did you discuss the management of the patient with other professionals (professionals i.e. , PA, LICENSED PLUMBER, lab, RT, psych nurse, social work associate, bread jockey, teacher, security officer supervisor, protective services case worker)? Give summary @ -No Was smoking cessation discussed for >3mins.? @ -No Was critical care preformed (if so, how long)? @ -No Were there social determinants of health that impacted care today? How? (Homelessness, low income, unemployed, alcoholism, drug addiction, transportation, low edu. Level, literacy, decrease access to med. care, longterm, rehab)? @ -No Was there de-escalation of care discussed even if they declined (Discuss DNR or withdrawal of care, Hospice)? DNR status @ -No What co-morbidities impacted this encounter? (DM, HTN, Smoking, COPD, CAD, Cancer, CVA, ARF, Chemo, Hep., AIDS, mental health diagnosis, sleep apnea, morbid obesity)? @ -None Was patient admitted / discharged? Hospital course, mention meds given and route, prescriptions, significant lab abnormalities, going to OR and other pertinent info. @ -Upon arrival patient was placed into room 1. Thorough history and physical exam was performed. No dental abscess appreciated. Patient is already taking antibiotics with worsening symptoms. She will be provided with a short course of Tylenol 3's. Antibiotic will be switched to clindamycin. She is to take the medications as directed and follow-up with her dentist for definitive management. Return for any new or worsening symptoms. Patient agreeable to plan was discharged in stable condition Undiagnosed new problem with uncertain prognosis? @ -No Drug Therapy requiring intensive monitoring for toxicity (Heparin, Nitro, Insulin, Cardizem)? @ -No Were any procedures done? @ -No Diagnosis/symptom? @ -Acute dentalgia, multiple dental caries Acute, or Chronic, or Acute on Chronic? @ -Acute Uncomplicated (without systemic symptoms) or Complicated (systemic symptoms)? @ -Uncomplicated Side effects of treatment? @ -No Exacerbation, Progression, or Severe Exacerbation? @ -No Poses a threat to life or bodily function? How? (Chest pain, [place], [place], pneumonia, PE, COPD, DKA, ARF, appy, cholecystitis, CVA, Diverticulitis, Homicidal, Suicidal, threat to staff... and all critical care pts) @ -No (Shanika Holm) Disposition <John Recio - Last Filed: 11/09/23 00:44> Is patient prescribed a controlled substance at d/c from ED?: Yes When asked, does pt state using other controlled substances?: No If prescribed controlled substance>3 days was MAPS reviewed?: Prescribed <3 Days If opioid is for acute pain is fill amount 7 days or less?: Yes Time of Disposition: 00:57 <Shanika Holm - Last Filed: 11/17/23 22:14> Clinical Impression: Dentalgia Disposition: HOME SELF-CARE Condition: Stable Instructions (If sedation given, give patient instructions): Toothache (ED) Additional Instructions: Please give the antibiotic 1 more day to see if it works. May switch over to the clindamycin if you continue to have pain. Take the pain medications as needed and return to your dental office for further workup Prescriptions: clindamycin HCL [Cleocin] 300 mg PO QID #28 cap HYDROcodone/APAP 5-325MG [[place] 5-325] 1 tab PO Q6HR PRN 3 Days #12 tab PRN Reason: Severe Breakthrough Pain Referrals: Wilberto Muller MD [Primary Care Provider] - 1-2 days
[2023-11-09] MEDS ORDERED: MORPHINE SULFATE 4 MG/ML SYRINGE IM STA (00:52)
[2023-11-09] MEDS ORDERED: CLINDAMYCIN 150 MG CAP PO STA (00:52)
[2023-11-09] MEDS ORDERED: ACET/COD 300 MG/30 MG STARTER PACK 6 TAB BTL PO STA (00:52)
[2023-11-09 01:39] VITALS: BP 146/92; PULSE 88; RESP 16; TEMP 98.3
== END 2023-11-09 01:30 | disposition home or self-care (01) ==
LOC: EC 23:58
DX: K08.89 Other specified disorders of teeth and supporting structures (principal); K21.9 Gastro-esophageal reflux disease without esophagitis; I10 Essential (primary) hypertension; M19.90 Unspecified osteoarthritis, unspecified site; F12.90 Cannabis use, unspecified, uncomplicated; Z86.59 Personal history of other mental and behavioral disorders; Z79.1 Long term (current) use of non-steroidal anti-inflammatories (NSAID); Z79.899 Other long term (current) drug therapy; Z91.040 Latex allergy status
CPT/HCPCS: 99283; 96372; J2270

== ENCOUNTER 2024-01-11 10:12 | Emergency (ER) | payer MEDICARE, OTHER ==
[2024-01-11 10:56] VITALS: TEMP 98.4
--- NOTE | 2024-01-11 11:00 | ED ---
Nausea/Vomiting/Diarrhea HPI - General Chief complaint: Nausea/Vomiting/Diarrhea Stated complaint: Fever, [place] Time Seen by Provider: 01/11/24 10:30 Source: patient, RN notes reviewed Mode of arrival: ambulatory Limitations: no limitations - History of Present Illness Initial comments: 48-year-old female to the emergency department chief complaint of feelings of nausea and vomiting over the last 2 days. Patient states that she has also been experiencing bodyaches, fevers, cough and nasal congestion. she has taken Zofran, Tylenol, and Motrin with minimal relief of symptoms. Denies recent travel. Previous abdominal surgery of cholecystectomy and revision with mesh placement. Denies aches, shortness of breath, chest pressure, diarrhea, abdominal pain. Denies hematemesis or history of GI bleed. States that she has a daily marijuana user and grows her own at home denies history of emesis from marijuana use. - Related Data Home Medications Medication Instructions Recorded Confirmed OXcarbazepine [Trileptal] 900 mg PO BID 04/25/20 10/27/22 Pantoprazole Sodium [Protonix] 40 mg PO BID 04/25/20 10/27/22 Pregabalin [Lyrica] 150 mg PO HS 04/25/20 10/27/22 lisinopriL [Zestril] 10 mg PO DAILY 04/25/20 10/27/22 cloNIDine HCL [Catapres] 0.1 - 0.2 mg PO HS 09/24/21 10/27/22 Ibandronate Sodium [Boniva] 150 mg PO Q30D 12/11/21 10/27/22 PARoxetine HCL [Paxil] 30 mg PO HS 12/11/21 10/27/22 Baclofen [Lioresal] 20 mg PO BID PRN 04/21/22 10/27/22 Cholecalciferol [Vitamin D3 (10 10 mcg PO DAILY 10/25/22 10/27/22 Mcg = 400 Iu)] Cyanocobalamin (Vitamin B-12) 1,000 mcg PO DAILY 10/25/22 10/27/22 [Vitamin B-12] Previous Rx's Medication Instructions Recorded Metoclopramide [Reglan] 10 mg PO TID PRN #15 tab 08/22/22 HYDROcodone/APAP 5-325MG [[place] 1 tab PO Q6HR PRN 3 Days #12 tab 11/09/23 5-325] clindamycin HCL [Cleocin] 300 mg PO QID #28 cap 11/09/23 Ondansetron Odt [Zofran Odt] 4 mg PO Q8HR PRN #10 tab 01/11/24 Allergies Allergy/AdvReac Type Severity Reaction Status Date / Time latex Allergy Anaphylaxis Verified 01/11/24 10:30 Review of Systems ROS Statement: Those systems with pertinent positive or pertinent negative responses have been documented in the HPI. ROS Other: All systems not noted in ROS Statement are negative. 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"; TIA X7 POSSIBLE ONE CVA, MIGRAINE HEADACHES, VERTIGO, COLONOSCOPY,EGD History of Any Multi-Drug Resistant Organisms: C-DIFF Date of last positivie culture/infection: 2003 MDRO Source:: bowel Past Surgical History: Section, Cholecystectomy, Hysterectomy Additional Past Surgical History / Comment(s): hysterectomy, oophorectomy and salpingectomy; patient states she "coded and " from cholecystectomy CAME BACK TO THE ER - HAD BLEEDING AND BILE INTO THE ABDOMEN AND CODED" section x2;LAPAROSCOPIC SURGERY TO REMOVE ADHESIONS X2 Past Anesthesia/Blood Transfusion Reactions: Previous Problems w/ Anesthesia, Motion Sickness, Postoperative Nausea & Vomiting (PONV) Past Psychological History: Anxiety, Bipolar, Depression, Panic Disorder, PTSD Smoking Status: Never smoker Past Alcohol Use History: None Reported Past Drug Use History: Marijuana - Past Family History Father Family Medical History: Cancer, Coronary Artery Disease (CAD) Mother Family Medical History: Hypertension Additional Family Medical History / Comment(s): mental illness, Brother(s) Family Medical History: Cancer Additional Family Medical History / Comment(s): neck cancer, THROAT CANCER General Exam Limitations: no limitations General appearance: alert, in no apparent distress, anxious Head exam: Present: atraumatic, normocephalic, normal inspection Eye exam: Present: normal appearance, PERRL, EOMI. Absent: scleral icterus, conjunctival injection, periorbital swelling ENT exam: Present: normal exam, mucous membranes moist Neck exam: Present: normal inspection. Absent: tenderness, meningismus, lymphadenopathy Respiratory exam: Present: normal lung sounds bilaterally. Absent: respiratory distress, wheezes, rales, rhonchi, stridor Cardiovascular Exam: Present: regular rate, normal rhythm, normal heart sounds. Absent: systolic murmur, diastolic murmur, rubs, gallop, clicks GI/Abdominal exam: Present: soft, normal bowel sounds. Absent: distended, tenderness, guarding, rebound, rigid Extremities exam: Present: normal inspection, full ROM, normal capillary refill. Absent: tenderness, pedal edema, joint swelling, calf tenderness Back exam: Present: normal inspection Neurological exam: Present: alert, oriented X3, CN II-XII intact Psychiatric exam: Present: normal affect, normal mood Skin exam: Present: warm, dry, intact, normal color. Absent: rash Course Vital Signs 01/11/24 01/11/24 01/11/24 10:28 13:19 15:00 Temperature 98.4 F 98.4 F 98.4 F Pulse Rate 94 75 91 Respiratory 16 18 18 Rate Blood Pressure 147/93 134/86 126/84 O2 Sat by Pulse 97 98 98 Oximetry Medical Decision Making - Medical Decision Making Was pt. sent in by a medical professional or institution (, PA, NEWS INTERN, urgent care, hospital, or residential...) When possible be specific @ -[No] Did you speak to anyone other than the patient for history (EMS, parent, family, police, friend...)? What history was obtained from this source @ -[No] Did you review nursing and triage notes (agree or disagree)? Why? @ -[I reviewed and agree with nursing and triage notes] Were old charts reviewed (outside hosp., previous admission, EMS record, old EKG, old radiological studies, urgent care reports/EKG's, residential records)? Report findings @ -[No old charts were reviewed] Differential Diagnosis (chest pain, altered mental status, abdominal pain women, abdominal pain men, vaginal bleeding, weakness, fever, dyspnea, syncope, headache, dizziness, GI bleed, back pain, seizure, CVA, palpatations, mental health, musculoskeletal)? @ -COVID 19, RSV, influenza, pneumonia, acute bronchitis, URI,gastroenteritis this list is not all inclusive EKG interpreted by me (3pts min.). @ -none X-rays interpreted by me (1pt min.). @ -[None done] CT interpreted by me (1pt min.). @ -[None done] U/S interpreted by me (1pt. min.). @ -[None done] What testing was considered but not performed or refused? (CT, X-rays, U/S, labs)? Why? @ -[None] What meds were considered but not given or refused? Why? @ -[None] Did you discuss the management of the patient with other professionals (professionals i.e. , PA, NEWS INTERN, lab, RT, psych nurse, healthcare social worker, boiler coverer, teacher, electrical engineering drafting officer, rn case manager)? Give summary @ -[No] Was smoking cessation discussed for >3mins.? @ -[No] Was critical care preformed (if so, how long)? @ -[No] Were there social determinants of health that impacted care today? How? (Homelessness, low income, unemployed, alcoholism, drug addiction, transport ation, low edu. Level, literacy, decrease access to med. care, half-way, rehab)? @ -[No] Was there de-escalation of care discussed even if they declined (Discuss DNR or withdrawal of care, Hospice)? DNR status @ -[No] What co-morbidities impacted this encounter? (DM, HTN, Smoking, COPD, CAD, Cancer, CVA, ARF, Chemo, Hep., AIDS, mental health diagnosis, sleep apnea, morbid obesity)? @ -[None] Was patient admitted / discharged? Hospital course, mention meds given and route, prescriptions, significant lab abnormalities, going to OR and other pertinent info. @ -48-year-old female with nausea vomiting and fevers. Complete abdominal physical exam with no acute findings. Due to patient's symptoms over the last 2 days and associated fevers of bodyaches, patient is swabbed for COVID, flu, RSV. Patient was started on IV fluids and given IV Zofran and Benadryl to aid in nausea due to episode of dry heaving while completing her history. Basic blood work obtained to determine if there are signs of infection. No evidence of leukocytosis. Patient hyponatremic with level of 127 and acidotic CO2 19. Repeat examination the patient revealed that she is still experiencing nausea and dry heaving, IV push of Reglan was given, informed the patient of laboratory results and findings thus far. Patient feels better after Reglan. Patient returns with positive influenza A. Patient will be prescribed Zofran as needed at home to do continue Tylenol Motrin as needed for other symptoms. I discussed the case with my attending Dr. Dia who is agreeable with plan for discharge Undiagnosed new problem with uncertain prognosis? @ -[No] Drug Therapy requiring intensive monitoring for toxicity (Heparin, Nitro, Insulin, Cardizem)? @ -[No] Were any procedures done? @ -[No] Diagnosis/symptom? @ -[default] Acute, or Chronic, or Acute on Chronic? @ -Nausea, vomiting, influenza A Uncomplicated (without systemic symptoms) or Complicated (systemic symptoms)? @ -Complicated Side effects of treatment? @ -[No] Exacerbation, Progression, or Severe Exacerbation? @ -[No] Poses a threat to life or bodily function? How? (Chest pain, [place], [place], pneumonia, PE, COPD, DKA, ARF, appy, cholecystitis, CVA, Diverticulitis, Homicidal, Suicidal, threat to staff... and all critical care pts) @ -Unlikely - Lab Data Result diagrams: 01/11/24 11:21 01/11/24 11:21 Lab Results 01/11/24 01/11/24 01/11/24 Range/Units 10:30 11:21 11:21 WBC 3.6 L (3.8-10.6) k/uL RBC 4.36 (3.80-5.40) m/uL Hgb 14.5 (11.4-16.0) gm/dL Hct 38.9 (34.0-46.0) % MCV 89.3 (80.0-100.0) fL MCH 33.2 (25.0-35.0) pg MCHC 37.2 H (31.0-37.0) g/dL RDW 11.9 (11.5-15.5) % Plt Count 316 (150-450) k/uL MPV 7.4 Neutrophils % 78 % Lymphocytes % 9 % Monocytes % 9 % Eosinophils % 1 % Basophils % 0 % Neutrophils # 2.8 (1.3-7.7) k/uL Lymphocytes # 0.3 L (1.0-4.8) k/uL Monocytes # 0.3 (0-1.0) k/uL Eosinophils # 0.0 (0-0.7) k/uL Basophils # 0.0 (0-0.2) k/uL Hyperchromasia Slight Sodium 126 L (137-145) mmol/L Potassium 4.3 (3.5-5.1) mmol/L Chloride 92 L (98-107) mmol/L Carbon Dioxide 19 L (22-30) mmol/L Anion Gap 15 mmol/L BUN 9 (7-17) mg/dL Creatinine 0.57 (0.52-1.04) mg/dL Est GFR (CKD-EPI)AfAm >90 (>60 ml/min/1.73 sqM) Est GFR (CKD-EPI)NonAf >90 (>60 ml/min/1.73 sqM) Glucose 108 H (74-99) mg/dL Calcium 9.8 (8.4-10.2) mg/dL Total Bilirubin 0.4 (0.2-1.3) mg/dL AST 25 (14-36) U/L ALT 17 (4-34) U/L Alkaline Phosphatase 127 H (38-126) U/L Total Protein 8.4 H (6.3-8.2) g/dL Albumin 4.9 (3.5-5.0) g/dL Amylase 63 (30-110) U/L Lipase 62 (23-300) U/L Influenza Type A (PCR) Detected A (Not Detectd) Influenza Type B (PCR) Not Detected (Not Detectd) RSV (PCR) Not Detected (Not Detectd) SARS-CoV-2 (PCR) Not Detected (Not Detectd) Disposition Clinical Impression: Influenza A, Nausea & vomiting Narrative: Return to the emergency department if symptoms worsen or do not improve Disposition: HOME SELF-CARE Condition: Good Instructions (If sedation given, give patient instructions): Influenza (ED) Prescriptions: Ondansetron Odt [Zofran Odt] 4 mg PO Q8HR PRN #10 tab PRN Reason: Nausea Is patient prescribed a controlled substance at d/c from ED?: No Referrals: Wilberto Muller MD [Primary Care Provider] - 1-2 days Time of Disposition: 14:29
[2024-01-11] MEDS: diphenhydrAMINE 50 MG/ML 1 ML VIAL IVP STA (11:30)
[2024-01-11] MEDS: SODIUM CHLORIDE 0.9% 1,000 ML IV STA (11:30)
[2024-01-11] MEDS: ONDANSETRON 4 MG/2 ML VIAL IVP STA (11:36)
[2024-01-11 11:50] LABS: Basophils % (A) 0 %; Eosinophils % (A) 1 %; HCT 38.9 % (34.0-46.0); HGB 14.5 gm/dL (11.4-16.0); Hyperchromasia Slight; Lymphocytes # (A) 0.3 k/uL (1.0-4.8); Lymphocytes % (A) 9 %; MCH 33.2 pg (25.0-35.0); MCHC 37.2 g/dL (31.0-37.0); MCV 89.3 fL (80.0-100.0); Mean Platelet Volume 7.4; Monocytes # (A) 0.3 k/uL (0-1.0); Monocytes % (A) 9 %; Neutrophils # (A) 2.8 k/uL (1.3-7.7); Neutrophils % (A) 78 %; Platelet Count 316 k/uL (150-450); RBC 4.36 m/uL (3.80-5.40); RDW 11.9 % (11.5-15.5); WBC 3.6 k/uL (3.8-10.6)
[2024-01-11 12:08] LABS: ALT 17 U/L (4-34); AST 25 U/L (14-36); African American GFR (CKD) >90 (>60 ml/min/1.73 sqM); Albumin 4.9 g/dL (3.5-5.0); Alkaline Phosphatase 127 U/L (38-126); Amylase 63 U/L (30-110); Anion Gap 15 mmol/L; Blood Urea Nitrogen 9 mg/dL (7-17); Calcium 9.8 mg/dL (8.4-10.2); Carbon Dioxide 19 mmol/L (22-30); Chloride 92 mmol/L (98-107); Glucose 108 mg/dL (74-99); Lipase 62 U/L (23-300); Non-African American GFR(CKD) >90 (>60 ml/min/1.73 sqM); Potassium 4.3 mmol/L (3.5-5.1); Sodium 126 mmol/L (137-145); Total Bilirubin 0.4 mg/dL (0.2-1.3); Total Protein 8.4 g/dL (6.3-8.2)
[2024-01-11] MEDS: METOCLOPRAMIDE 5 MG/ML 2 ML VIAL IVP STA (13:18)
[2024-01-11 13:25] VITALS: RESP 18
[2024-01-11 15:17] VITALS: BP 126/84; PULSE 91
== END 2024-01-11 15:05 | disposition home or self-care (01) ==
LOC: EC 10:12
DX: J10.1 Influenza due to other identified influenza virus with other respiratory manifestations (principal); R11.2 Nausea with vomiting, unspecified; F12.90 Cannabis use, unspecified, uncomplicated; Z91.040 Latex allergy status
CPT/HCPCS: 36415; 80053; 82150; 83690; 85025; 87636; 99284; 96374; 96375 ×2; 96361; J1200; J2765; J2405

== ENCOUNTER → 2024-02-21 | Outpatient (CLI) | payer MEDICARE, OTHER ==
--- NOTE | 2024-02-21 10:50 | US ---
EXAMINATION TYPE: US abdomen limited DATE OF EXAM: 02/21/2024 COMPARISON: CT 2021 CLINICAL INDICATION: Female, 48 years old with history of R10.9 UNSPECIFIED ABDOMINAL PAIN; TECHNIQUE: Multiple sonographic images of the left upper quadrant are obtained. FINDINGS: EXAM MEASUREMENTS: Spleen: 10.4 cm Left Kidney: 12.7 x 5.1 x 4.2 cm 1. Spleen: wnl 2. Left Kidney: wnl IMPRESSION: No evidence for acute process.
== END | disposition home or self-care (01) ==
LOC: RADUSWWP 08:14
PROVIDERS: ATTEND Family Medicine
DX: R10.9 Unspecified abdominal pain (principal)
CPT/HCPCS: 76705

== ENCOUNTER 2024-05-04 18:29 | Emergency (ER) | payer MEDICARE, OTHER ==
[2024-05-04 18:52] VITALS: TEMP 98.1
--- NOTE | 2024-05-04 19:38 | ED ---
Abdominal Pain HPI - General Chief Complaint: Abdominal Pain Stated Complaint: abd pain/vomitting Time Seen by Provider: 05/04/24 19:36 Source: patient, RN notes reviewed Mode of arrival: ambulatory Limitations: no limitations - History of Present Illness Initial Comments: 40-year-old female presenting with constipation x 2 days with lower abdominal pain. She reports a stabbing pain that radiates to her rectum. Last bowel movement was 2 days ago and is very small and hard. She has tried MiraLAX at home with no relief. She reports she is passing flatus and hears bowel sounds. She does have a history of a , hysterectomy, and cholecystectomy. States her appetite is decreased due to pain but denies vomiting. - Related Data Home Medications Medication Instructions Recorded Confirmed OXcarbazepine [Trileptal] 900 mg PO BID 04/25/20 10/27/22 Pantoprazole Sodium [Protonix] 40 mg PO BID 04/25/20 10/27/22 Pregabalin [Lyrica] 150 mg PO HS 04/25/20 10/27/22 lisinopriL [Zestril] 10 mg PO DAILY 04/25/20 10/27/22 cloNIDine HCL [Catapres] 0.1 - 0.2 mg PO HS 09/24/21 10/27/22 Ibandronate Sodium [Boniva] 150 mg PO Q30D 12/11/21 10/27/22 PARoxetine HCL [Paxil] 30 mg PO HS 12/11/21 10/27/22 Baclofen [Lioresal] 20 mg PO BID PRN 04/21/22 10/27/22 Cholecalciferol [Vitamin D3 (10 10 mcg PO DAILY 10/25/22 10/27/22 Mcg = 400 Iu)] Cyanocobalamin (Vitamin B-12) 1,000 mcg PO DAILY 10/25/22 10/27/22 [Vitamin B-12] Previous Rx's Medication Instructions Recorded Metoclopramide [Reglan] 10 mg PO TID PRN #15 tab 08/22/22 HYDROcodone/APAP 5-325MG [[place] 1 tab PO Q6HR PRN 3 Days #12 tab 11/09/23 5-325] clindamycin HCL [Cleocin] 300 mg PO QID #28 cap 11/09/23 Ondansetron Odt [Zofran Odt] 4 mg PO Q8HR PRN #10 tab 01/11/24 Allergies Allergy/AdvReac Type Severity Reaction Status Date / Time latex Allergy Anaphylaxis Verified 05/04/24 18:53 Review of Systems ROS Statement: Those systems with pertinent positive or pertinent negative responses have been documented in the HPI. ROS Other: All systems not noted in ROS Statement are negative. 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"; TIA X7 POSSIBLE ONE CVA, MIGRAINE HEADACHES, VERTIGO, COLONOSCOPY,EGD History of Any Multi-Drug Resistant Organisms: C-DIFF Date of last positivie culture/infection: 2003 MDRO Source:: bowel Past Surgical History: Section, Cholecystectomy, Hysterectomy Additional Past Surgical History / Comment(s): hysterectomy, oophorectomy and salpingectomy; patient states she "coded and " from cholecystectomy CAME BACK TO THE ER - HAD BLEEDING AND BILE INTO THE ABDOMEN AND CODED" section x2;LAPAROSCOPIC SURGERY TO REMOVE ADHESIONS X2 Past Anesthesia/Blood Transfusion Reactions: Previous Problems w/ Anesthesia, Motion Sickness, Postoperative Nausea & Vomiting (PONV) Past Psychological History: Anxiety, Bipolar, Depression, Panic Disorder, PTSD Smoking Status: Never smoker Past Alcohol Use History: None Reported Past Drug Use History: Marijuana - Past Family History Father Family Medical History: Cancer, Coronary Artery Disease (CAD) Mother Family Medical History: Hypertension Additional Family Medical History / Comment(s): mental illness, Brother(s) Family Medical History: Cancer Additional Family Medical History / Comment(s): neck cancer, THROAT CANCER General Exam Limitations: no limitations General appearance: alert, in no apparent distress Head exam: Present: atraumatic, normocephalic, normal inspection Respiratory exam: Present: normal lung sounds bilaterally. Absent: respiratory distress, wheezes, rales, rhonchi, stridor Cardiovascular Exam: Present: regular rate, normal rhythm, normal heart sounds. Absent: systolic murmur, diastolic murmur, rubs, gallop, clicks GI/Abdominal exam: Present: soft, normal bowel sounds. Absent: distended, tenderness, guarding, rebound, rigid Back exam: Absent: CVA tenderness (R), CVA tenderness (L) Neurological exam: Present: alert, oriented X3 Psychiatric exam: Present: normal affect, normal mood Skin exam: Present: warm, dry, intact, normal color. Absent: rash Course Vital Signs 05/04/24 18:47 Temperature 98.1 F Pulse Rate 95 Respiratory 18 Rate Blood Pressure 126/83 O2 Sat by Pulse 99 Oximetry Medical Decision Making - Medical Decision Making Was pt. sent in by a medical professional or institution (, PA, CUSTOMER OPERATIONS MANAGER, urgent care, hospital, or group home...) When possible be specific @ -No Did you speak to anyone other than the patient for history (EMS, parent, family, police, friend...)? What history was obtained from this source @ -No Did you review nursing and triage notes (agree or disagree)? Why? @ -I reviewed and agree with nursing and triage notes Were old charts reviewed (outside hosp., previous admission, EMS record, old EKG, old radiological studies, urgent care reports/EKG's, group home records)? Report findings @ -No old charts were reviewed Differential Diagnosis (chest pain, altered mental status, abdominal pain women, abdominal pain men, vaginal bleeding, weakness, fever, dyspnea, syncope, headache, dizziness, GI bleed, back pain, seizure, CVA, palpatations, mental health, musculoskeletal)? @ -Differential Abdominal Pain Men: Appendicitis, cholecystitis, diverticulosis, ischemic bowel, pancreatitis, hepatitis, UTI, gastroenteritis, AAA, incarcerated hernia, bowel obstruction, constipation, inflammatory bowel, hepatitis, peptic ulcer disease, splenic infarction, perforated viscus, testicular torsion, this is not meant to be an all-inclusive list EKG interpreted by me (3pts min.). @ -None X-rays interpreted by me (1pt min.). @ -X-ray revealed large amount of stool in rectum and left colon, otherwise nonspecific bowel gas pattern without radiographic evidence for acute process CT interpreted by me (1pt min.). @ -None done U/S interpreted by me (1pt. min.). @ -None done What testing was considered but not performed or refused? (CT, X-rays, U/S, labs)? Why? @ -Lab work not performed due to no red flag symptoms What meds were considered but not given or refused? Why? @ -None Did you discuss the management of the patient with other professionals (professionals i.e. , PA, CUSTOMER OPERATIONS MANAGER, lab, RT, psych nurse, social sciences department chair, snowboarding instructor, teacher, environmental health officer, caser)? Give summary @ -No Was smoking cessation discussed for >3mins.? @ -No Was critical care preformed (if so, how long)? @ -No Were there social determinants of health that impacted care today? How? (Homelessness, low income, unemployed, alcoholism, drug addiction, transportation, low edu. Level, literacy, decrease access to med. care, longterm, rehab)? @ -No Was there de-escalation of care discussed even if they declined (Discuss DNR or withdrawal of care, Hospice)? DNR status @ -No What co-morbidities impacted this encounter? (DM, HTN, Smoking, COPD, CAD, Cancer, CVA, ARF, Chemo, Hep., AIDS, mental health diagnosis, sleep apnea, morbid obesity)? @ -None Was patient admitted / discharged? Hospital course, mention meds given and route, prescriptions, significant lab abnormalities, going to OR and other pertinent info. @ -Patient was discharged. Patient was seen and evaluated for constipation x 2 days. Patient is passing flatus, no red flag symptoms. Vital signs are unremarkable. Patient is nontender to palpation of abdomen. X-ray revealed a large amount of stool in rectum and left colon, otherwise nonspecific bowel gas pattern without radiographic evidence for acute process. Discussed diagnosis of constipation with patient. Patient was given milk of magnesia to take at home. Supportive care discussed. Strict return parameters discussed with patient in detail and she is agreeable to plan. Case was discussed with my attending Dr. Alexander. Patient discharged in stable condition. Undiagnosed new problem with uncertain prognosis? @ -No Drug Therapy requiring intensive monitoring for toxicity (Heparin, Nitro, Insulin, Cardizem)? @ -No Were any procedures done? @ -No Diagnosis/symptom? @ -Constipation Acute, or Chronic, or Acute on Chronic? @ -Acute Uncomplicated (without systemic symptoms) or Complicated (systemic symptoms)? @ -Uncomplicated Side effects of treatment? @ -No Exacerbation, Progression, or Severe Exacerbation? @ -No Poses a threat to life or bodily function? How? (Chest pain, [place], NH, pneumonia, PE, COPD, DKA, ARF, appy, cholecystitis, CVA, Diverticulitis, Homicidal, Suicidal, threat to staff... and all critical care pts) @ -No Disposition Clinical Impression: Constipation Disposition: HOME SELF-CARE Condition: Stable Instructions (If sedation given, give patient instructions): Constipation (ED) Additional Instructions: Please return to the Emergency Department if symptoms worsen or any other concerns. Is patient prescribed a controlled substance at d/c from ED?: No Referrals: Wilberto Muller MD [Primary Care Provider] - 1-2 days Time of Disposition: 21:36
--- NOTE | 2024-05-04 20:28 | XR ---
EXAMINATION TYPE: XR KUB DATE OF EXAM: 05/04/2024 8:09 PM CLINICAL INDICATION:Female, 48 years old with history of abd pain/constipation; [facility] COMPARISON: CT 08/22/2022. TECHNIQUE: One radiographic view of the abdomen was obtained. FINDINGS: Large amount of stool seen in the left abdomen and rectum. Fecaloma measuring up to 6.6 cm. The bowel gas pattern is nonspecific without dilated loops of small or large bowel. . Fecal material and gas are demonstrated throughout the colon and rectum. There is no evidence for organomegaly or pneumoperitoneum. The osseous structures are intact. No ab normal calcifications are present. IMPRESSION: Large amount stool in the rectum and left colon. Otherwise, Nonspecific bowel gas pattern without rad iographic evidence for acute process. r
[2024-05-04] MEDS: ONDANSETRON ODT 4 MG TAB PO STA (21:30)
[2024-05-04] MEDS: MAGNESIUM HYDROXIDE 2,400 MG/30 ML CUP PO PRN (22:18)
[2024-05-04 22:51] VITALS: BP 124/64; PULSE 68; RESP 16
== END 2024-05-04 22:51 | disposition home or self-care (01) ==
LOC: EC 18:29
DX: K59.00 Constipation, unspecified (principal); F12.90 Cannabis use, unspecified, uncomplicated; Z91.040 Latex allergy status
CPT/HCPCS: 74018; 99284